=== PATIENT | female | born 1940 | race Caucasian/White ===

== ENCOUNTER 2019-10-05 10:41 | Emergency (ER) | payer MEDICARE, SELFPAY ==
[2019-10-05 10:55] VITALS: BP 153/85; PULSE 80; RESP 16; TEMP 36.7; O2SAT 98
--- NOTE | 2019-10-05 11:06 | PC.NURSE ---
in br to obtain ua spec. daughter at side.
--- NOTE | 2019-10-05 11:08 | ED.GENADULT ---
HPI - General Adult General Chief complaint: Weakness Stated complaint: Weak Time Seen by Provider: 10/05/19 11:08 Source: patient and RN notes reviewed Mode of arrival: ambulatory Limitations: no limitations History of Present Illness HPI narrative: 79-year-old female presents with complaints of dizziness and weakness that has been going on for the past 30 days. Symptoms increased today. History of Dementia and falls. No treatment. Exacerbating factors consist of changing position too fast turning head from side to side too fast. Relieving factors is sitting still. Denies ear pain, ear itching, ear trauma, trauma to head, syncopal episodes, altered vision, altered speech, confusion, or seizure activity. Denies headache, numbness or tingling in extremities. Denies chest pain or dyspnea. Denies URI symptoms, fever, or chills. Tolerating p.o. intake well. Remains active. The patient reports she have not been diagnosed with COVID-19. The patient reports she is not waiting for the results of a COVID-19 lab test. The patient reports she do not have fever, chills, weakness, or fatigue. The patient reports she do not have a new or worsening cough or shortness of breath. Denies chest pain. The patient reports she do not have any rhinorrhea, congestion, sore throat, loss of taste, nausea, vomiting, abdominal pain, and diarrhea. Tolerating po intake well. Denies recent traveling. Denies concerns for COVID-19 or exposures been home with limited outdoor exposure except for essential household needs and return home. At this time, patient is not suspected of having COVID-19. Some parts of this dictation were generated by voice recognition software and may contain typographical and/or grammatical inaccuracies. Related Data Home Medications Medication Instructions Recorded Confirmed aspirin 81 mg tablet,delayed 81 mg PO DAILY 01/08/19 release lisinopril 10 1 tablet PO DAILY 01/08/19 mg-hydrochlorothiazide 12.5 mg tablet Allergies Allergy/AdvReac Type Severity Reaction Status Date / Time Penicillins Allergy Unknown Verified 03/10/17 14:58 Review of Systems Review of Systems: Narrative: CONSTITUTIONAL: Denies fever, chills, sweats. EYES: Denies visual changes, redness, discharge. ENT: Denies rhinorrhea, congestion, sore throat, otalgia. CARDIOVASCULAR: Denies chest pain, palpitations, edema. RESPIRATORY: Denies dyspnea, wheezing, cough. GASTROINTESTINAL: Denies abdominal pain, nausea, vomiting, diarrhea. GENITOURINARY: Denies dysuria, hematuria, abnormal discharge. SKIN: Denies lesions, itching, drainage. MUSCULOSKELETAL: Denies acute back pain, joint pain, or myalgia. NEUROLOGIC: Denies numbness or focal weakness. Complains of dizziness and weakness. PSYCHIATRIC: Denies anxiety or depression. All systems reviewed & are unremarkable except as noted in HPI and below. [facility], [facility] Past Medical History Medical History Acute bilateral low back pain without sciatica CAD (coronary artery disease) Chronic obstructive pulmonary disease CKD (chronic kidney disease) stage 3, GFR 30-59 ml/min COPD (chronic obstructive pulmonary disease) Dementia Depression Dyslipidemia Dysthymia HLD (hyperlipidemia) HTN (hypertension) Osteomyelitis of left foot Post menopausal problems Surgical History Surgical History History of PTCA Hx of CABG 2012 Family History Family History Grandparent Diabetes mellitus Family history of cardiovascular disease Acute myocardial infarction Father Family history of cardiovascular disease, Onset Age: 73 Patient's father is Mother Family history of coronary artery disease, Onset Age: 74 Patient's mother is Social History Social History (Reviewed 10/05/19 @ 11:26 b
[2019-10-05 11:16] LABS: Glucose Point of Care 114 (65-105)
[2019-10-05 11:25] VITALS: BP 143/72; PULSE 77
[2019-10-05 11:27] VITALS: BP 146/85; PULSE 80
[2019-10-05 11:29] VITALS: PULSE 80
[2019-10-05] MEDS: MECLIZINE HCL 25 MG TABLET PO (11:40)
--- NOTE | 2019-10-05 11:43 | ECG_ITS ---
Measurements Intervals [place] Rate: 78 P: 47 AL: 169 QRS: -10 QRSD: 104 T: -2 QT: 383 QTc: 439 Interpretive Statements SINUS RHYTHM DELAYED PRECORDIAL R/S TRANSITION INFERIOR INFARCT, AGE INDETERMINATE BORDERLINE T WAVE ABNORMALITY- ANTEROLAT/HIGH LAT LEADS ABNORMAL ECG Electronically Signed On 10-05-2019 12:23:27 CDT by Trae Stewart D.O.
[2019-10-05 11:47] VITALS: BP 143/72; BP 146/85; PULSE 77
[2019-10-05 11:48] VITALS: PULSE 82
--- NOTE | 2019-10-05 12:02 | PC.NURSE ---
dizziness improved. given fluid per pnp order.
== END 2019-10-05 12:20 | disposition home or self-care (01) ==
PROVIDERS: Emergency Provider Nurse Practitioner Family
DX: R42 Dizziness and giddiness (principal); R82.81 Pyuria; I25.2 Old myocardial infarction; Z87.891 Personal history of nicotine dependence; I25.10 Atherosclerotic heart disease of native coronary artery without angina pectoris; J44.9 Chronic obstructive pulmonary disease, unspecified; I12.9 Hypertensive chronic kidney disease with stage 1 through stage 4 chronic kidney disease, or unspecified chronic kidney disease; N18.3 Chronic kidney disease, stage 3 (moderate); F03.90 Unspecified dementia, unspecified severity, without behavioral disturbance, psychotic disturbance, mood disturbance, and anxiety; F32.9 Major depressive disorder, single episode, unspecified; E78.5 Hyperlipidemia, unspecified; Z95.1 Presence of aortocoronary bypass graft; R94.31 Abnormal electrocardiogram [ECG] [EKG]
CPT/HCPCS: 81003; 82948; 87086; 87088; 87147; 93005; 99213; A9270; G0463

== ENCOUNTER 2019-12-08 14:41 | Inpatient (IN) | payer MEDICARE, SELFPAY ==
[2019-12-08] VITALS (11 sets, daily range): BP systolic 133–159; BP diastolic 83–110; PULSE 80–115; RESP 12–20; TEMP 36.1–36.3; O2SAT 97–99; BMI 21.6
--- NOTE | ~2019-12-08 | XR_ITS ---
XR lumbar spine 2-3V 12/09/2019 16:09 Indication: Low back pain Procedure: 3 views lumbar spine Comparison: No prior studies for comparison. Findings: Disc narrowing at all lumbar levels. There is superior endplate compression fracture of L2 and to a lesser degree L1, age indeterminate. There is moderate facet hypertrophy at L4-5 and L5-S1. There is diffuse atherosclerosis of the aorta. There is dextroscoliosis. Osteopenia. Impression: 1: Age-indeterminate superior endplate compression deformities of L1 and L2. 2: Moderate-severe lumbar spondylosis. Reviewed, dictated and finalized at location A. TING NURSE Impression: 1: Age-indeterminate superior endplate compression deformities of L1 and L2. 2: Moderate-severe lumbar spondylosis.
--- NOTE | ~2019-12-08 | XR_ITS ---
XR chest 2V 12/08/2019 15:40 Indication: Dyspnea. Shortness of breath. History of CABG. Procedure: AP and lateral views of the chest Comparison: Comparison to multiple prior studies sequentially, with oldest reviewed study dated 08/24. Findings: Status post median sternotomy for CABG. Cardiomegaly. Small left pleural effusion. No focal pneumonia, edema or pneumothorax. No acute osseous abnormality. Impression: 1: Small left pleural effusion. 2: Cardiomegaly. Reviewed, dictated and finalized at location A. Impression: 1: Small left pleural effusion. 2: Cardiomegaly.
--- NOTE | 2019-12-08 15:02 | ECG_ITS ---
Measurements Intervals [place] Rate: 88 P: 42 [place]: 159 QRS: -23 QRSD: 98 T: -15 QT: 387 QTc: 468 Interpretive Statements SINUS RHYTHM VENTRICULAR PREMATURE COMPLEXES BORDERLINE R WAVE PROGRESSION, ANTERIOR LEADS INFERIOR INFARCT, AGE INDETERMINATE BORDERLINE T WAVE ABNORMALITY- ANTEROLATERAL LEADS BASELINE ARTIFACT- I, III, AVL ABNORMAL ECG Electronically Signed On 12-08-2019 18:02:48 CDT by Trae Stewart D.O.
--- NOTE | 2019-12-08 15:17 | ED.SOB ---
HPI - SOB/Dyspnea General Chief Complaint: Shortness of Breath/Dyspnea Stated Complaint: sob hx copd Time Seen by Provider: 12/08/19 15:17 History of Present Illness HPI Narrative: 79 yo female w/ h/o CAD s/p CABG, COPD, HTN presents to the ED for SOB. She was lying down to take a nap when she suddenly became very SOB. She tried sitting up, which di not help. She reports that she has had an intermittent cough recently. No CP, fever, leg swelling, sick contacts. Related Data Home Medications Medication Instructions Recorded Confirmed aspirin 81 mg tablet,delayed 81 mg PO DAILY 01/08/19 12/19/19 release Allergies Allergy/AdvReac Type Severity Reaction Status Date / Time Penicillins Allergy Unknown Unknown Verified 12/15/19 15:55 Review of Systems Review of Systems: All systems reviewed & are unremarkable except as noted in HPI and below Constitutional: Constitutional: Denies chills and Denies fever(s) Cardiovascular: Cardiovascular: Denies chest pain Respiratory: Respiratory: Reports cough and Reports dyspnea Gastrointestinal: Gastrointestinal: Denies abdominal pain, Denies nausea and Denies vomiting Neurologic: Denies dizziness and Denies weakness [facility] Past Medical History Medical History Acute bilateral low back pain without sciatica CAD (coronary artery disease) Chronic obstructive pulmonary disease CKD (chronic kidney disease) stage 3, GFR 30-59 ml/min COPD (chronic obstructive pulmonary disease) Dementia Depression Dyslipidemia Dysthymia HLD (hyperlipidemia) HTN (hypertension) Osteomyelitis of left foot Post menopausal problems Surgical History Surgical History History of PTCA History of stent insertion of renal artery left renal artery stent 2006 Hx of CABG 2012 Family History Family History Grandparent Diabetes mellitus Acute myocardial infarction Heart disease Father Heart disease Mother Coronary artery disease Social History Social History Social History: Primary care physician: Dr. Malcom Judd Code status: Full code Smoking packs per day: 2 Smoking cigarettes per day: 40.0 Years smoked: 35 Smoking pack-years: 70.00 Smoking status: Former smoker Second hand tobacco smoke exposure: No Smoking end date: 02/08/96 Alcohol intake: current Drinks per week: 10 Substance use: never Substance use type: does not use Additional living arrangements comments: She lives with her 2 daughters. She used . Additional occupation/education comments: She used to work in a detention kitchen. Gender identity (if verbalized by the patient): Female Spiritual care concerns: No Exam Const: General: no acute distress and alert Nutritional Appearance: well nourished Orientation/consciousness: patient oriented x3 HENMT: Head: normal to inspection Resp: Effort & Inspection: normal respiratory effort Auscultation: rales on the left in the lower lung hernandez Cardio: Rate: regular rate Rhythm: regular rhythm Skin: General skin exam: normal color Rashes: no rashes Neuro: General: patient oriented x3 and moves all extremities Speech: normal speech Extrem: General: no edema Course Vital Signs Vital signs: Vital Signs Temperature 36.1 C L 12/08/19 14:59 Pulse Rate 88 12/08/19 14:59 Respiratory Rate 12 12/08/19 14:59 Blood Pressure 145/110 H 12/08/19 14:59 Pulse Oximetry 98 12/08/19 14:59 Temperature 36.1 C L 12/12/19 12:00 Pulse Rate 70 12/12/19 12:00 Respiratory Rate 18 12/12/19 12:00 Blood Pressure 110/70 12/12/19 12:00 Pulse Oximetry 99 12/12/19 12:00 MDM - SOB/Dyspnea Differential Diagnosis Differential diagnosis: Likely congestive heart
[2019-12-08 15:18] LABS: Basophils Percent Auto 0.7 % (0.2-1.2); Eosinophils Absolute Auto 0.1 K/mm3 (0-0.3); Eosinophils Percent Auto 1.6 % (0-4.4); Hematocrit 43.5 % (37.0-47.0); Hemoglobin 14.2 g/dL (12.0-15.0); Immature Granulocyte Absolute 0.01 K/mm3 (0.00-0.031); Immature Granulocyte Percent A 0.2 % (0-0.5); Lymphocytes Absolute Auto 1.44 K/mm3 (0.9-3.2); Lymphocytes Percent Auto 23.4 % (18.3-44.2); Mean Corpuscular HGB Conc 32.6 g/dl (32-36); Mean Corpuscular Hemoglobin 31.3 pg (26-34); Mean Corpuscular Volume 95.8 fl (80-100); Mean Platelet Volume 9.6 fl (7.4-10.4); Monocytes Absolute Auto 0.6 K/mm3 (0.1-0.6); Monocytes Percent Auto 8.9 % (2.6-8.5); Neutrophils Percent Auto 65.2 % (45.5-73.1); Platelet Count Result 223 k/mm3 (150-375); Red Blood Count 4.54 M/mm3 (4.2-5.4); Red Cell Distribution Width 16.5 % (11.5-14.5); White Blood Count 6.2 K/mm3 (4.5-10.0)
[2019-12-08 15:27] LABS: Anion Gap 6 mmol/L (8-16); Blood Urea Nitrogen 11 mg/dL (7-17); Calcium 9.1 mg/dL (8.4-10.2); Carbon Dioxide 28 mmol/L (22-30); Chloride 106 mmol/L (98-107); Estimated CRCL calculation 30 ml/min; Estimated Glomerular Filt Rate 48; Glucose 100 mg/dL (65-105); Potassium 3.6 mmol/L (3.4-5.0); Sodium 140 mmol/L (137-145)
[2019-12-08 16:21] LABS: NT Pro B Type Natriuretic Pept 10700 PG/ML (5-100); Troponin I 0.054 ng/mL (0.000-0.034)
[2019-12-08] MEDS: FUROSEMIDE INJ 40 MG/4 ML VIAL IV PUSH (17:18)
--- NOTE | 2019-12-08 18:01 | ADMGEN ---
This patient, Michelle Porter, was admitted to IMU Room 232-01. Patient/family oriented to hospital policies and general routines including ID bracelet, bed and alarms, visiting hours, pain management, procedures, bathroom and other care routines, personal items, smoking policy, room service/diet, and visiting hours. Information on how to activate the Rapid Response Team has been discussed. Patient/Family are encouraged to report perceived risks to care and to ask questions if they do not understand what they are told or what they should do.
[2019-12-08 19:59] LABS: Troponin I 0.058 ng/mL (0.000-0.034)
--- NOTE | 2019-12-08 23:21 | PM.IMHP ---
H&P: HPI History of Present Illness Date/Time: 12/08/19 23:21 Chief complaint: sudden shortness of breath Narrative: Michelle Porter is a 79 year old female with a past medical history of renal artery stenosis, coronary artery disease status post CABG, and diastolic congestive heart failure who presented to the ER with sudden onset of shortness of breath.That the shortness of breath started when she went to lay down and take a nap but her shortness of breath did not improve when she sat up. Her shortness of breath is worse with exertion according to the ER records. The patient is currently only alert and oriented to person and place at the time my evaluation. She is a poor historian. She does not have any significant lower extremity edema at the time my evaluation. The patient denies any as chest pain, fever, palpitations, nausea, vomiting or ill contacts. Review of Systems Review of Systems: Narrative: 12 systems were reviewed with pertinent positives and negatives per HPI. Except as documented in the HPI, all other systems were reviewed and are negative. [facility] Past Medical History Medical History (Updated 12/09/19 @ 00:03 by Luz Laws DO) Acute bilateral low back pain without sciatica CAD (coronary artery disease) Chronic obstructive pulmonary disease CKD (chronic kidney disease) stage 3, GFR 30-59 ml/min COPD (chronic obstructive pulmonary disease) Dementia Depression Dyslipidemia Dysthymia HLD (hyperlipidemia) HTN (hypertension) Osteomyelitis of left foot Post menopausal problems Surgical History Surgical History (Updated 12/08/19 @ 23:23 by Luz Laws DO) History of PTCA History of stent insertion of renal artery left renal artery stent 2006 Hx of CABG 2012 Family History Family History (Updated 12/09/19 @ 05:09 by Luz Laws DO) Grandparent Diabetes mellitus Acute myocardial infarction Heart disease Father Heart disease Mother Coronary artery disease Social History Social History (Updated 12/09/19 @ 09:03 by Luz Laws DO) Social History: Primary care physician: Dr. Malcom Judd Code status: Full code Smoking packs per day: 2 Smoking cigarettes per day: 40.0 Years smoked: 35 Smoking pack-years: 70.00 Smoking status: Former smoker Second hand tobacco smoke exposure: No Smoking end date: 02/08/96 Alcohol intake: current Drinks per week: 10 Alcohol use details: She drinks about 10 glasses of wine a week according to nursing documentation the patient tells me that she drinks 2-3 glasses of wine a week. Substance use: never Substance use type: does not use Living arrangements: with family Additional living arrangements comments: She lives with her 2 daughters. She used . 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 Gender identity (if verbalized by the patient): Female Spiritual care concerns: No Meds Home Medications and Allergies Home Medications Medication Instructions Recorded Confirmed Type amlodipine 5 mg tablet 5 mg PO DAILY #90 tablet 01/08/19 12/08/19 Rx aspirin 81 mg tablet,delayed 81 mg PO DAILY 01/08/19 12/08/19 History release atorvastatin 40 mg tablet 40 mg PO DAILY #90 tablet 01/09/19 12/08/19 Rx Allergies Allergy/AdvReac Type Severity Reaction Status Date / Time Penicillins Allergy Unknown Unknown Verified 12/08/19 16:30 Vital Signs Vital Signs - 24 hr 12/08/19 14:59 12/08/19 16:14 12/08/19 16:29 Temperature 96.9 F L Pulse Rate 88 80 93 Respiratory Rate 12 14 Blood Pressure 145/110 H 139/83 Pulse Oximetry 98 99 12/08/19 16:45 12/08/19 16:46 12/08/19 17:34 Temperature Pulse Rate 94 94 88 Respiratory Rate 18 15 17 Blood Pressure 155/89 H 159/87 H Pulse Oximetry 97 98 99 12/08/19 18:05 12/08/19 18:06 12/08/19 20:00 Temperature 97.4 F L 96.9
[2019-12-08 23:43] LABS: Troponin I 0.059 ng/mL (0.000-0.034)
[2019-12-09] VITALS (14 sets, daily range): BP systolic 116–179; BP diastolic 64–91; PULSE 71–87; RESP 14–20; TEMP 36.4–36.7; O2SAT 94–98
[2019-12-09 05:27] LABS: Anion Gap 11 mmol/L (8-16); Blood Urea Nitrogen 11 mg/dL (7-17); Calcium 9.4 mg/dL (8.4-10.2); Carbon Dioxide 31 mmol/L (22-30); Chloride 102 mmol/L (98-107); Estimated CRCL calculation 28 ml/min; Estimated Glomerular Filt Rate 43; Glucose 96 mg/dL (65-105); Magnesium 1.8 mg/dL (1.6-2.3); Potassium 3.3 mmol/L (3.4-5.0); Sodium 144 mmol/L (137-145)
[2019-12-09] MEDS: FUROSEMIDE INJ 40 MG/4 ML VIAL IV PUSH ×2 (07:22→18:17)
[2019-12-09] MEDS: ASPIRIN 81 MG ENTERIC TABLET PO (08:21)
[2019-12-09] MEDS: ENOXAPARIN 40 MG/0.4 ML SYRINGE SUB-Q (08:21)
[2019-12-09] MEDS: amLODIPine BESYLATE 5 MG TABLET PO (08:21)
[2019-12-09] MEDS: ATORVASTATIN 40 MG TABLET PO (08:21)
--- NOTE | 2019-12-09 09:42 | PC.NURSE ---
Daylight Savings Time For Daylight Savings Time Ending in the Fall - Clocks are moved back. For Daylight Savings Time Beginning in the Spring - Clocks are moved ahead. For [facility], the time of change occurs at 0200 hrs. Time is taken from the television schedule coordinator. This entry on the patient's chart recognizes the change in time reflected during documentation. Example: 2 entries for vital signs may be charted for 0200 hrs.
--- NOTE | 2019-12-09 15:49 | PM.IMPN ---
Progress Note: A&P Assessment and Plan (1) CHF exacerbation: Qualifiers: Heart failure type: diastolic Qualified Code(s): I50.33 - Acute on chronic diastolic (congestive) heart failure Code(s): I50.9 - Heart failure, unspecified Status: Acute Assessment and Plan: Patient had an echocardiogram from 2017 that demonstrated grade 3-4 diastolic dysfunction. no home diuretic therapy indicating that she is usually well compensated. Repeat echocardiogram has been ordered. The patient was started on IV Lasix in the ER and has had good urine output. shortness of breath or dyspnea resolved, and she denies chest pain or chest pressure of any type. able to ambulate around her hospital room without any limitation noted. no swelling or edema to her lower extremities. No wheezing upon auscultation [place] [address], will repeat. receiving 40 mg IV Lasix q.12 hours. plan to stop IV BID dose in morning to start 20 or 40mg Lasix daily depending on her urine output & repeat BNP was admitted yesterday late afternoon and has since voided 2 L. Repeating a BNP with other labs in the morning, including a follow up Troponin. Trops mildly elevated, but stable at 0.05. orthostatic blood pressure checks ordered. PT and OT evaluation ordered. EKG yesterday showed sinus with PVCs, telemetry reviewed today shows sinus with PVCs heart rate in the 70s. Replacing potassium of 3.3 with 1 dose of oral supplementation. Checking Phos levels. Mag 1.8 patient her daughter requested a cardiology consultation, order was placed. not been to a medical or surgical instrument maker in over 10 years, since she had her open heart surgery 14 years or more ago. (2) Low back pain: Code(s): M54.5 - Low back pain Status: Acute Assessment and Plan: experiencing low back pain for some time, this was not acute but she had never had an x-ray or evaluation. Patient was able to do straight leg raise is as well as flex knee raises, no radiculopathy during examination, no pain with palpation during exam of lower back. No current sensory loss or strength loss noted. Patient is able to ambulate about the room without any assistance or use of DME. Patient stated that she had fallen in the past a couple of times, but had never been evaluated or had any imaging done. Ordered a lumbar x-ray for evaluation. Order lidocaine patches and p.r.n. Tylenol for pain control (3) NEVAEH (acute kidney injury): Code(s): N17.9 - Acute kidney failure, unspecified Status: Acute Assessment and Plan: May be chronic, only lab to compare to was July creatinine was 1.3 in July admission creatinine was 1.1 and then 1.2 today. Repeating labs in the morning will need to avoid high doses of Lasix for long periods of time. Minimize nephrotoxic medications maintain MAPs >65 keep patient hydrated monitor Subjective Date/time seen: 12/09/19 15:49 Michelle was sitting up in a chair when I went to speak with her and examine her. Her daughter was also at her bedside and we had a long discussion about CHF and low back pain. Patient was admitted due to CHF exacerbation with related chest pain and shortness of breath. Today she states that she is not experiencing any shortness of breath or dyspnea, and she denies chest pain or chest pressure of any type. She is able to ambulate around her hospital room without any limitation noted. She does not have any swelling or edema to her lower extremities. No wheezing upon auscultation [place] lungs[place] [address], will repeat. She is receiving 40 mg IV Lasix q.12 hours. She was admitted yesterday late afternoon and has since voided 2 L. Repeating a BNP with other labs in the morning, including a follow up Troponin. Trops mildly elevated, but stable at 0.05. Patient daughter stated that she had not been to a medical or surgical instrument maker in over 10 years, since she had
--- NOTE | 2019-12-09 16:02 | ECG_ITS ---
Measurements Intervals [place] Rate: 75 P: 126 [place]: 157 QRS: 201 QRSD: 109 T: 150 QT: 379 QTc: 425 Interpretive Statements SINUS RHYTHM ARM LEADS REVERSED POOR R WAVE PROGRESSION, ANTERIOR LEADS INFERIOR INFARCT, AGE INDETERMINATE BORDERLINE T WAVE ABNORMALITY- ANTEROLATERAL LEADS BASELINE ARTIFACT- I, II, V6 ABNORMAL ECG Electronically Signed On 12-10-2019 7:15:34 [employer] by Trae Stewart D.O.
[2019-12-09] MEDS: POTASSIUM CHLORIDE 20 MEQ TABLET 40 MEQ PO (16:15)
--- NOTE | 2019-12-09 18:08 | PC.NURSE ---
This patient, Michelle Porter, was transferred to [facility] on 12/09/19 at 1802. Personal belongings sent with patient. Report given to Mge IVY. Appropriate documentation sent with patient.
--- NOTE | 2019-12-10 | ECHO_ITS ---
Patient Info Name: Michelle Porter Age: 79 years : 1940 Gender: Female Ht: 63 in Wt: 121 lbs BSA: 1.56 m2 HR: 78 bpm BP: 116 / 81 mmHg Heart Rhythm: Sinus Rhythm Technical Quality: Good Exam Date: 12/10/2019 10:22 AM Exam Location: [facility] Pulmonary Exam Room: [facility] Patient Status: Outpatient Admit Date: 12/08/2019 Staff Ordering Physician: Mark Diaz MD Line Manager: Kaity Larkin RDCS Attending Provider: Lisandra Romeo NP Referring Physician: Emily ARTEAGA; Exam Type: CA echo doppler color flow Study Info Indications - CHF Complete two-dimensional, color flow and Doppler transthoracic echocardiogram is performed. Strain analysis performed. Summary 1. Complete two-dimensional, color flow and Doppler transthoracic echocardiogram is performed. 2. Strain analysis performed. 3. Left ventricular chamber dimension is moderately enlarged. 4. Left ventricular systolic function is severely reduced, estimated at 20-25%. 5. There is no increased left ventricular wall thickness. 6. The left ventricular diastolic function is grade I diastolic dysfunction. 7. Global longitudinal strain is abnormal at -9 %. 8. The inferior wall, basal inferoseptal, and mid inferoseptal are akinetic. 9. The anterior wall, anterolateral wall, anteroseptal wall, inferolateral wall, apical septum, and apical cap are hypokinetic. 10. Right ventricular systolic function is reduced. 11. Left atrial chamber dimension is severely enlarged. 12. There is moderate to severe mitral valve regurgitation. 13. There is mild tricuspid valve regurgitation. 14. There is mild pulmonic regurgitation. Left Ventricle Left ventricular chamber dimension is moderately enlarged. Left ventricular systolic function is severely reduced, estimated at 20-25%. There is no increased left ventricular wall thickness. The left ventricular diastolic function is grade I diastolic dysfunction. Global longitudinal strain is abnormal at -9 %. The inferior wall, basal inferoseptal, and mid inferoseptal are akinetic. The anterior wall, anterolateral wall, anteroseptal wall, inferolateral wall, apical septum, and apical cap are hypokinetic. Right Ventricle Right ventricular chamber dimension is normal. Right ventricular systolic function is reduced. Left Atria Left atrial chamber dimension is severely enlarged. Right Atria Right atrial chamber dimension is normal. Atrial Septum Intact interatrial septum visualized by color flow imaging. Aortic Valve The aortic valve is trileaflet. There is mild aortic valve sclerosis. There is no aortic valve stenosis. There is trace aortic valve regurgitation. There is mild aortic valve calcification. Pulmonic Valve The pulmonic valve is normal. There is no pulmonic valve stenosis. There is mild pulmonic regurgitation. Mitral Valve The mitral valve has thickened leaflets and calcified annulus. There is no mitral valve stenosis. There is moderate to severe mitral valve regurgitation. Tricuspid Valve The tricuspid valve leaflets are normal. There is no significant tricuspid valve stenosis. There is mild tricuspid valve regurgitation. No pulmonary hypertension, estimated pulmonary arterial systolic pressure is 31 mmHg. Pericardium/Pleural The pericardium appears normal. There is trivial pericardial effusion. Inferior Vena Cava Normal inferior vena cava with >50% collapse upon inspiration consistent with normal right atrial pr
[2019-12-10] MEDS: LIDOCAINE 5% PATCH 2 PATCH TRANSDERM ×2 (00:01→21:13)
[2019-12-10] MEDS: FUROSEMIDE INJ 40 MG/4 ML VIAL IV PUSH (05:35)
[2019-12-10 06:23] LABS: Anion Gap 9 mmol/L (8-16); Blood Urea Nitrogen 16 mg/dL (7-17); Calcium 9.6 mg/dL (8.4-10.2); Carbon Dioxide 32 mmol/L (22-30); Chloride 102 mmol/L (98-107); Estimated CRCL calculation 24 ml/min; Estimated Glomerular Filt Rate 36; Glucose 111 mg/dL (65-105); Magnesium 1.8 mg/dL (1.6-2.3); Phosphorus 4.1 mg/dL (2.5-4.5); Potassium 3.3 mmol/L (3.4-5.0); Sodium 143 mmol/L (137-145)
[2019-12-10 06:38] LABS: NT Pro B Type Natriuretic Pept 4230 PG/ML (5-100); Troponin I 0.053 ng/mL (0.000-0.034)
[2019-12-10 08:00] VITALS: BP 104/65; PULSE 78; RESP 16; TEMP 36.2; O2SAT 96
[2019-12-10] MEDS: amLODIPine BESYLATE 5 MG TABLET PO (08:29)
[2019-12-10] MEDS: ENOXAPARIN 40 MG/0.4 ML SYRINGE SUB-Q (08:29)
[2019-12-10] MEDS: ASPIRIN 81 MG ENTERIC TABLET PO (08:29)
[2019-12-10] MEDS: ATORVASTATIN 40 MG TABLET PO (08:29)
[2019-12-10 08:30] VITALS: PULSE 78
--- NOTE | 2019-12-10 11:17 | PM.IMPN ---
Progress Note: A&P Assessment and Plan (1) CHF exacerbation: Qualifiers: Heart failure type: diastolic Qualified Code(s): I50.33 - Acute on chronic diastolic (congestive) heart failure Code(s): I50.9 - Heart failure, unspecified Status: Acute Assessment and Plan: Patient had an echocardiogram from 2017 that demonstrated grade 3-4 diastolic dysfunction. no home diuretic therapy indicating that she is usually well compensated. Repeat echocardiogram has been ordered. The patient was started on IV Lasix in the ER and has had good urine output. shortness of breath or dyspnea resolved, and she denies chest pain or chest pressure of any type. able to ambulate around her hospital room without any limitation noted. no swelling or edema to her lower extremities. No wheezing upon auscultation of lungs[place] [address] at admission, now improved to 4230. received 40 mg IV Lasix q.12 hours for 2 days, decreased to 40mg IV daily now. output : 450ml, 750ml, and today 1300ml. Trops x 4 mildly elevated, but stable at 0.05. No chest pain/pressure/SOB/dyspnea with ambulation. orthostatic blood pressure checks ordered. PT and OT evaluation ordered. EKG yesterday showed sinus with PVCs, telemetry reviewed today shows sinus with PVCs heart rate in the 70s. Replacing potassium of 3.3 with 40KCL Phos levels 4.1 Mag 1.8 patient her daughter requested a cardiology consultation, order was placed. family thought she had not been to a breakfast manager in over 10 years, since she had her open heart surgery 14 years or more agom, but I found in medical records that she was evaluated 2-4 years ago by 2 different cardiologists. (2) Low back pain: Code(s): M54.5 - Low back pain Status: Acute Assessment and Plan: experiencing low back pain for some time, this was not acute but she had never had an x-ray or evaluation. Patient was able to do straight leg raise is as well as flex knee raises, no radiculopathy during examination, no pain with palpation during exam of lower back. No current sensory loss or strength loss noted. Patient is able to ambulate about the room without any assistance or use of DME. Patient stated that she had fallen in the past a couple of times, but had never been evaluated or had any imaging done. lumbar x-ray with no acute fractures or spinal compression pain controlled with lidocaine patches and p.r.n. Tylenol for pain control (3) NEVAEH (acute kidney injury): Code(s): N17.9 - Acute kidney failure, unspecified Status: Acute Assessment and Plan: June be chronic, only lab to compare to was July creatinine was 1.3 in July admission creatinine was 1.1 and then 1.2 and 1.4 today. avoid high doses of IV lasix for prolonged periods of time. Minimize nephrotoxic medications maintain MAPs >65 keep patient hydrated monitor Subjective Date/time seen: 12/10/19 11:17 Michelle was sitting up in her recliner, watching TV when I entered. Her daughter was not visiting at this time. She said that she has not seen the Boning Room Worker yet, but is hoping to go home later today. She states that she lives in a small house next to her daughter and son-in-law's house. She said that they look in on her frequently and take good care of her. Michelle seems capable of taking care of herself, but both nighttime nurses have informed me of their concerns with her confusion overnight. The daughter is aware of her dementia and has been discussing that with the adult day care worker Alethea. Today Michelle, knew she was in a hospital but thought she was in [place], her home town. she could tell me [id number] how to brush her teeth, but she could not tell me what year was or who the president currently was. She thought it was 2015 and she thought the president was Obama. She denies any chest pain or shortness of breath today. She has been ambulating around her room a
[2019-12-10] MEDS: POTASSIUM CHLORIDE 20 MEQ TABLET 40 MEQ PO (12:07)
[2019-12-10 13:57] LABS: Add Urine Microscopic? YES; Appearance Urine Clear (Clear); Bacteria Urine Trace /hpf; Bilirubin Urine Negative (Negative); Blood Urine Negative (Negative); Color Urine Yellow (Yellow); Glucose Urine UA Negative (Negative); Ketones Urine Negative (Negative); Leukocyte Esterase Ur 2+ LEU/UL (Negative); Mucus Urine Rare /lpf; Nitrate Urine Negative (Negative); Protein Urine 2+ mg/dL (Negative); Specific Grav Ur 1.014 (1.001-1.035); Squamous Epithelial Cell Urine Many /hpf (Few); Transitional Epi Cells Urine Rare /hpf (None Seen); WBC Urine 16-20 /hpf
--- NOTE | 2019-12-10 16:36 | PM.CNCAR ---
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 (2) CHF exacerbation: Qualifiers: Heart failure type: diastolic Qualified Code(s): I50.33 - Acute on chronic diastolic (congestive) heart failure Code(s): I50.9 - Heart failure, unspecified Status: Acute Assessment and Plan: Discussed risks/benefits/alternative treatment to left heart cath and she and her daughter are in agreement for it. Notified HCG for cath tomorrow. Keep NPO after midnight. Will hold Lovenox. Start Coreg 3.125 mg BID and Lisinopril 2.5 mg daily. Stop Amlodipine. Discussed need for Life Vest to prevent sudden cardiac arrest and they are in agreement. (3) HLD (hyperlipidemia): Qualifiers: Hyperlipidemia type: mixed hyperlipidemia Qualified Code(s): E78.2 - Mixed hyperlipidemia Code(s): E78.5 - Hyperlipidemia, unspecified Status: Acute (4) COPD (chronic obstructive pulmonary disease): Code(s): J44.9 - Chronic obstructive pulmonary disease, unspecified Status: Acute (5) HTN (hypertension): Qualifiers: Hypertension type: essential hypertension Qualified Code(s): I10 - Essential (primary) hypertension Code(s): I10 - Essential (primary) hypertension Status: Acute Assessment and Plan: Stable. (6) CKD (chronic kidney disease) stage 4, GFR 15-29 ml/min: Code(s): N18.4 - Chronic kidney disease, stage 4 (severe) Status: Acute History of Present Illness History of Present Illness Consult date/time: 12/10/19 16:36 Reason for consult: CHF. 79 yr old woman who I saw one time in my office on 03/10/17 presents to hospital with sob. She has a history of CAD and CABG x 2 vessels at [facility] in 2006, hypertension, dyslipidemia, left renal artery stenting, COPD, CKD stage III-IV. Reports orthopnea and HASSAN. She is a poor historian. Her daughter then brought her in to hospital. CXR showed small left pleural effusion. Troponin was slightly elevated at .058, then .059 then .053. Cr 1.4 with CrCl 24. NTproBNP 4,230. Echo shows EF 20-25% with hypokinetic segments including anterior, inferior, septum and apex, grade I diastolic dysfunction, mod-severe MR. She received IV lasix and feels better, no longer sob. Denies chest pains. She thinks she can walk up to 1 block. Reason For Visit: sudden shortness of breath Review of Systems Review of Systems: All systems reviewed & are unremarkable except as noted in HPI and below Constitutional: Constitutional: Reports as per HPI, Denies chills and Denies fever(s) Cardiovascular: Cardiovascular: Reports as per HPI, Denies chest pain, Denies irregular heart rhythm, Denies leg edema, Denies lightheadedness and Reports dyspnea on exertion Respiratory: Respiratory: Reports as per HPI, Reports dyspnea and Reports dyspnea on exertion Gastrointestinal: Gastrointestinal: Reports as per HPI and Denies abdominal pain Genitourinary: Genitourinary: Reports as per HPI and Denies dysuria Musculoskeletal: Musculoskeletal: Reports as per HPI Neurologic: Reports as per HPI, Denies dizziness and Denies syncope [facility] Past Medical History Medical History (Updated 12/10/19 @ 16:43 by Trae Stewart DO) Acute bilateral low back pain without sciatica CAD (coronary artery disease) Chronic obstructive pulmonary disease CKD (chronic kidney disease) stage 3, GFR 30-59 ml/min COPD (chronic obstructive pulmonary disease) Dementia Depression Dyslipidemia Dysthymia HLD (hyperlipidemia) HTN (hypertension) Osteomyelitis of left foot Post menopausal problems Surgical History Surgical History (Updated 12/08/19 @ 23:23 by Luz Laws DO) H
[2019-12-10 20:40] VITALS: BP 113/67; PULSE 83; RESP 12; TEMP 36.2; O2SAT 97
[2019-12-10 21:13] VITALS: PULSE 83
[2019-12-10] MEDS: carvediloL 3.125 MG TABLET PO (21:13)
[2019-12-11] VITALS (21 sets, daily range): BP systolic 99–140; BP diastolic 48–98; PULSE 66–80; RESP 14–22; TEMP 36.1–36.8; O2SAT 90–98
--- NOTE | 2019-12-11 07:31 | PM.PNCARD ---
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 In 2006 at [facility] she had 2 vessel CABG- BOURNE to LAD and SVG to OM. (2) CHF exacerbation: Qualifiers: Heart failure type: diastolic Qualified Code(s): I50.33 - Acute on chronic diastolic (congestive) heart failure Code(s): I50.9 - Heart failure, unspecified Status: Acute Assessment and Plan: Discussed risks/benefits/alternative treatment to left heart cath and she and her daughter Tayt who is the POA are in agreement for it. Notified HCG for cath today Keep NPO after midnight. Will hold Lovenox. Started Coreg 3.125 mg BID and Lisinopril 2.5 mg daily. Stopped Amlodipine. Discussed need for Life Vest to prevent sudden cardiac arrest and they are in agreement. (3) HLD (hyperlipidemia): Qualifiers: Hyperlipidemia type: mixed hyperlipidemia Qualified Code(s): E78.2 - Mixed hyperlipidemia Code(s): E78.5 - Hyperlipidemia, unspecified Status: Acute (4) COPD (chronic obstructive pulmonary disease): Code(s): J44.9 - Chronic obstructive pulmonary disease, unspecified Status: Acute (5) HTN (hypertension): Qualifiers: Hypertension type: essential hypertension Qualified Code(s): I10 - Essential (primary) hypertension Code(s): I10 - Essential (primary) hypertension Status: Acute Assessment and Plan: Stable. (6) CKD (chronic kidney disease) stage 4, GFR 15-29 ml/min: Code(s): N18.4 - Chronic kidney disease, stage 4 (severe) Status: Acute Subjective Date/time seen: 12/11/19 07:31 Denies any sob. No chest pains. Exam Const: General: cooperative, healthy appearing and comfortable Orientation/consciousness: oriented to person, oriented to place and oriented to time Resp: Auscultation: no crackles, no rales, no rhonchi, no wheezes and diminished lung sounds Cardio: Jugular venous distension: no JVD Rate: regular rate Rhythm: regular rhythm Heart sounds: no murmurs Peripheral pulses: dorsalis pedis present Neuro: General: oriented to person, oriented to place and oriented to time Extrem: Right lower extremity: no edema Left lower extremity: no edema Objective Data Vital Signs Vital Signs: Vital Signs - 24 hr 12/10/19 08:00 12/10/19 08:30 12/10/19 20:40 Temperature 97.1 F L 97.1 F L Pulse Rate 78 78 83 Respiratory Rate 16 12 Blood Pressure 104/65 113/67 Pulse Oximetry 96 97 12/10/19 21:13 12/11/19 06:11 Temperature 97.1 F L Pulse Rate 83 76 Respiratory Rate 14 Blood Pressure 118/85 Pulse Oximetry 98 Intake/Output Intake/Output: Intake & Output 12/09/19 12/09/19 12/10/19 12/11/19 00:59 23:59 23:59 23:59 Intake Total 2070 0 Output Total 1300 400 Balance 770 -400 Meds/Results Medications: Active Medications Generic Name Dose Route Start Last Admin Trade Name Freq PRN Reason Stop Dose Admin Acetaminophen 1,000 mg 12/09/19 21:05 Acetaminophen 500 Mg Tablet PO Q6H PRN Pain or Fever Aspirin 81 mg 12/09/19 09:00 12/10/19 08:29 Aspirin 81 Mg Enteric Tablet PO 81 mg DAILY STEPH Administration Atorvastatin Calcium 40 mg 12/09/19 09:00 12/10/19 08:29 Atorvastatin 40 Mg Tablet PO 40 mg DAILY STEPH Administration Carvedilol 3.125 mg 12/10/19 21:00 12/10/19 21:13 Carvedilol 3.125 Mg Tablet PO 3.125 mg Q12HR STEPH Administration Enoxaparin Sodium 40 mg 12/09/19 09:00 12/10/19 08:29 Enoxaparin 40 Mg/0.4 Ml Syringe SUB-Q 40 mg DAILY STEPH Administration Furosemide 40 mg 12/11/19 09:00 Furosemide Inj 40 Mg/4 Ml Vial IV PUSH DAILY [facility] Vancomycin HCl 750 mg in 250
[2019-12-11] MEDS: ASPIRIN 81 MG ENTERIC TABLET PO (08:16)
[2019-12-11] MEDS: lisinopriL 2.5 MG TABLET PO (08:16)
[2019-12-11] MEDS: carvediloL 3.125 MG TABLET PO ×2 (08:17→20:34)
[2019-12-11 08:50] LABS: Alanine Aminotransferase 13 U/L (4-35); Albumin Level 4.3 g/dL (3.5-5.1); Alkaline Phosphatase 92 U/L (38-126); Anion Gap 11 mmol/L (8-16); Aspartate Amino Transferase 32 U/L (14-36); Blood Urea Nitrogen 24 mg/dL (7-17); Calcium 9.7 mg/dL (8.4-10.2); Carbon Dioxide 30 mmol/L (22-30); Chloride 103 mmol/L (98-107); Estimated CRCL calculation 26 ml/min; Estimated Glomerular Filt Rate 39; Glucose 120 mg/dL (65-105); Magnesium 1.9 mg/dL (1.6-2.3); Potassium 3.9 mmol/L (3.4-5.0); Sodium 144 mmol/L (137-145)
--- NOTE | 2019-12-11 10:07 | WPDMODSED ---
Moderate Sedation Note-Pt Data Patient Data Allergies Allergy/AdvReac Type Severity Reaction Status Date / Time Penicillins Allergy Unknown Unknown Verified 12/10/19 00:06 Home Medications Medication Instructions Recorded Confirmed Type amlodipine 5 mg tablet 5 mg PO DAILY #90 tablet 01/08/19 12/08/19 Rx aspirin 81 mg tablet,delayed 81 mg PO DAILY 01/08/19 12/08/19 History release atorvastatin 40 mg tablet 40 mg PO DAILY #90 tablet 01/09/19 12/08/19 Rx Current Medications: Active Medications Acetaminophen (Acetaminophen 500 Mg Tablet) 1,000 mg PO Q6H PRN PRN Reason: Pain or Fever Aspirin (Aspirin 81 Mg Enteric Tablet) 81 mg PO DAILY [facility] Last Admin: 12/11/19 08:16 Dose: 81 mg Documented by: Atorvastatin Calcium (Atorvastatin 40 Mg Tablet) 40 mg PO DAILY [facility] Last Admin: 12/10/19 08:29 Dose: 40 mg Documented by: Carvedilol (Carvedilol 3.125 Mg Tablet) 3.125 mg PO Q12HR [facility] Last Admin: 12/11/19 08:17 Dose: 3.125 mg Documented by: Enoxaparin Sodium (Enoxaparin 40 Mg/0.4 Ml Syringe) 40 mg SUB-Q DAILY [facility] Last Admin: 12/10/19 08:29 Dose: 40 mg Documented by: Furosemide (Furosemide Inj 40 Mg/4 Ml Vial) 40 mg IV PUSH DAILY [facility] Vancomycin HCl (Vancomycin 750 Mg/D5w 250 Ml) 750 mg in 250 mls @ 250 mls/hr IVPB Q36H [facility] Last Infusion: 12/10/19 16:41 Dose: Infused Documented by: Sodium Chloride (Normal Saline Iv) 500 mls @ 100 mls/hr IV CONT .Q5H [facility] Lidocaine (Lidocaine 5% Patch) 2 patch TRANSDERM DAILY@2100 [facility] Last Admin: 12/10/19 21:13 Dose: 2 patch Documented by: Lisinopril (Lisinopril 2.5 Mg Tablet) 2.5 mg PO QAM [facility] Last Admin: 12/11/19 08:16 Dose: 2.5 mg Documented by: Potassium Chloride (Potassium Chloride 20 Meq Tablet.Er) 40 meq PO DAILY@0800 [facility] Sedation/Anesthesia: No previous sedation/anesthesia problems (including family history). [facility] Past Medical History Medical History (Updated 12/10/19 @ 16:43 by Trae Stewart DO) Acute bilateral low back pain without sciatica CAD (coronary artery disease) Chronic obstructive pulmonary disease CKD (chronic kidney disease) stage 3, GFR 30-59 ml/min COPD (chronic obstructive pulmonary disease) Dementia Depression Dyslipidemia Dysthymia HLD (hyperlipidemia) HTN (hypertension) Osteomyelitis of left foot Post menopausal problems Surgical History Surgical History (Updated 12/08/19 @ 23:23 by Luz Laws DO) History of PTCA History of stent insertion of renal artery left renal artery stent 2006 Hx of CABG 2012 Family History Family History (Updated 12/09/19 @ 05:09 by Luz Laws DO) Grandparent Diabetes mellitus Acute myocardial infarction Heart disease Father Heart disease Mother Coronary artery disease Social History Social History (Updated 12/09/19 @ 09:03 by Luz Laws DO) Social History: Primary care physician: Dr. Malcom Judd Code status: Full code Smoking packs per day: 2 Smoking cigarettes per day: 40.0 Years smoked: 35 Smoking pack-years: 70.00 Smoking status: Former smoker Second hand tobacco smoke exposure: No Smoking end date: 02/08/96 Alcohol intake: current Drinks per week: 10 Alcohol use details: She drinks about 10 glasses of wine a week according to nursing documentation the patient tells me that she drinks 2-3 glasses of wine a week. Substance use: never Substance use type: does not use Living arrangements: with family Additional living arrangements comments: She lives with her 2 daughters. She used . Occupation/Education: retired Additional occupation/education comments: She used to work in a half-way kitchen. Gender identity (if verbalized by the patient): Female Spiritual care concerns: No Mod Sed Physical Exam Physical Exam Pre Procedural Exam: Normal: Airway Hours since solid foods: 10 Hours since liquid intake: 10 Internal Medicine - PN: Obj Da Vital Signs V
--- NOTE | 2019-12-11 10:07 | WPDHPUPDATE1 ---
History and Physical Update Update Date/Time: 12/11/19 10:07 History and Physical has been reviewed, including an updated exam of the patient. There are NO changes in the patient's condition. Risks, benefits, and alternatives have been discussed and questions answered. Patient agrees to proceed with procedure.
--- NOTE | 2019-12-11 10:46 | WPDCARDPROC ---
Cardiac Cath Procedure Note Date of procedure:: 12/11/19 Performing physician:: Reese Joiner MD Procedure Procedure note:: CORONARY ANGIOGRAM AND BYPASS GRAFT ANGIOGRAPHY REPORT DATE OF PROCEDURE: 12/11/2019 INDICATION FOR PROCEDURE: Shortness of breath, CHF with reduced ejection fraction; minimal troponin elevation, known CAD, history of CABG BRIEF CLINICAL HISTORY: 79-year-old female with CAD, history of CABG x2 ( bourne to LAD, SVG to OM) on 09/27/2006 at [facility]; hypertension, renal artery stenosis, CKD, dyslipidemia. Patient was admitted to the hospital with complaints of shortness of breath. Patient is somewhat a poor historian . It is uncertain if patient had chest discomfort. Patient's EKG showed sinus rhythm, poor R-wave progression, inferior infarct -age undetermined; ST-T abnormalities. Serial troponins were minimally elevated at 0.05 and essentially flat. Echocardiogram reported severe LV systolic dysfunction, ejection fraction 20-25%. She was referred by for coronary angiogram and bypass graft angiography. Benefits and risks of the procedure were discussed with the patient in depth, and informed consent was obtained prior to the procedure. Risks of the procedure include but are not limited to vascular complications including groin hematoma, retroperitoneal bleed, vessel perforation; periprocedural UT, cardiac arrhythmias, stroke, contrast induced nephropathy, and . After discussing all the benefits, risks and alternatives, patient was willing to proceed with the procedure. PROCEDURES PERFORMED: 1. Selective left and right coronary angiogram 2. Selective bypass graft angiography 3. Selective left subclavian angiogram 4. Moderate sedation-CPT code 34931 MODERATE SEDATION: Midazolam 1 mg; fentanyl 25 mcg; Start time 1018 , Stop time 1043 ; Total [id number] time 25 minutes; Nicole Lord RN was trained observer for moderate sedation. ACCESS SITE: Right common femoral artery PROCEDURE NOTE: After obtaining informed consent, patient was brought to catheterization lab and prepped and draped in a usual sterile manner. After local anesthesia with lidocaine, right common femoral artery access was taken with micropuncture needle followed by insertion of a 5 [place] sheath. There was tortuosity in the aorta which made procedure somewhat technically challenging. Selective left and right coronary angiogram was performed using 5 [place] JL4 and JR4 catheters respectively. Orthogonal views were taken . Selective bypass graft angiography of vein graft to the OM was performed using the 5 [place] JR4 catheter. The same catheter was withdrawn, and was pointed toward the left subclavian artery. Selective left subclavian angiogram was performed. Nonselective BOURNE angiogram was performed. Left ventriculogram was not performed due to patient's renal insufficiency. Patient's surface echocardiogram performed during this hospitalization showed severe LV systolic dysfunction. Finally, the sheath was secured in place with sutures which will be taken out in the cath labholding area; manual pressure will be Used for local hemostasis. Patient tolerated procedure well without any immediate procedure related complications. FINDINGS: [place] CORONARY ARTERIES: LEFT MAIN CORONARY: The left main coronary artery is a medium caliber vessel in the proximal and mid segment. There is calcific, severe, about 90% stenosis in the distal left main involving the ostia of both LAD and left circumflex branches. LEFT ANTERIOR DESCENDING ARTERY: The LAD is a medium caliber vessel the proximal segment. High-grade calcific stenosis seen in the ostium. There is moderate diffuse disease in the proximal segment. The vessel is occluded in the mid segment with some competitive flow with the BOURNE. The distal LAD is supplied by patent BOURNE. The diagonal branch is a small-caliber vessel LEFT CIRCUMFLEX ARTERY: The le
[2019-12-11] MEDS: ATORVASTATIN 40 MG TABLET PO (14:33)
[2019-12-11] MEDS: POTASSIUM CHLORIDE 20 MEQ TABLET.ER 40 MEQ PO (14:33)
--- NOTE | 2019-12-11 16:08 | PM.IMPN ---
Progress Note: A&P Assessment and Plan (1) CHF exacerbation: Qualifiers: Heart failure type: diastolic Qualified Code(s): I50.33 - Acute on chronic diastolic (congestive) heart failure Code(s): I50.9 - Heart failure, unspecified Status: Acute Assessment and Plan: The patient presented with dyspnea, worse with exertion and lying flat. BNP was elevated at 10,700 and CXR showed cardiomegaly and small left pleural effusion. Troponin was elevated mildly at 0.05 with a flat trend in the setting of acute CHF exacerbation and renal insufficiency and not felt consistent with acute coronary syndrome. She was treated with IV lasix with excellent urine output which was tapered. She is now on PO lasix 40mg QD. Dyspnea resolved with diuresis. Echocardiogram was repeated and demonstrated severely reduced left ventricular systolic function with EF 20-25%, moderate left ventricular chamber enlargement, grade I diastolic dysfunction, akinesis of the inferior wall, basal inferoseptal, and mid inferosptal wall and hypokinesis of the anterior wall, anterolateral wall, inferolateral wall, apical septum, and apical cap, reduced right ventricular systolic function, moderate to severe mitral valve regurgitation, mild tricuspid regurgitation, and mild pulmonic regurgitation. Dr. Stewart was consulted and recommended left heart catheterization, coreg 3.125 mg BID, and lisinopril 2.5mg QD. Amlodipine was discontinued. Life vest will be needed. She is s/p CABG x2 (bourne to LAD, SVG to OM) 09/27/2006. Cardiac catheterization demonstrated patent bypass grafts (BOURNE to LAD and SVT to OM) and proximal RCA chronic total occlusion with bridging collaterals. Optimal medical treatment has been recommended with consideration of proximal RCA RELIEF MASTER PCI if necessary based on clinical course. Appreciate cardiology input. Management per cardiology. Continue to monitor strict intake and output, daily weights, blood pressure. Patient had an echocardiogram from 2017 that demonstrated grade 3-4 diastolic dysfunction. (2) Low back pain: Code(s): M54.5 - Low back pain Status: Resolved Assessment and Plan: The patient reported chronic low back discomfort. She had a hx of falls but no recent falls. She had no radicular pain, sensory, or strength loss and is able to ambulate without difficulty. Lumbar plain films were ordered and showed age-indeterminate compression deformities and moderate to severe lumbar spondylosis with osteopenia and dextroscoliosis. She was treated conservatively with tylenol and lidocaine patches and pain has resolved. Continue supportive care. She will benefit from outpatient workup for osteoporosis including DEXA scan. Check vitamin D level. (3) NEVAEH (acute kidney injury): Code(s): N17.9 - Acute kidney failure, unspecified Status: Acute Assessment and Plan: Likely acute on chronic CKD. Cr at admission was 1.1 and BUN 11. (Baseline Cr appears to be 1.17-1.3 on review of prior labs dating back to Nov 2016). She received IV lasix given acute CHF exacerbation and Cr increased to 1.4 12/10/19. IV lasix was discontinued and PO lasix was initiated. Plan to continue to monitor renal function closely.IV fluids are contraindicated given HFrEF. She is tolerating PO intake well. Avoid nephrotoxins and renally dose medications. (4) Elevated fasting glucose: Code(s): R73.01 - Impaired fasting glucose Status: Acute Assessment and Plan: Check hemoglobin A1c. (5) CAD (coronary artery disease): Qualifiers: Associated angina: with stable angina Coronary Disease-Associated Artery/Lesion type: [place] artery [place] vs. transplanted heart: [place] heart Qualified Code(s): I25.118 - Atherosclerotic heart disease of [place] coronary artery with other forms of angina pectoris Code(s): I25.10 - Atherosclerotic heart disease of [place] coronary artery without angina pectoris Stat
[2019-12-12 04:37] VITALS: BP 109/66; PULSE 69; RESP 16; TEMP 36.4; O2SAT 96
[2019-12-12 05:52] LABS: Hematocrit 45.7 % (37.0-47.0); Hemoglobin 14.8 g/dL (12.0-15.0); Mean Corpuscular HGB Conc 32.4 g/dl (32-36); Mean Corpuscular Hemoglobin 30.5 pg (26-34); Mean Corpuscular Volume 94.2 fl (80-100); Mean Platelet Volume 9.9 fl (7.4-10.4); Platelet Count Result 220 k/mm3 (150-375); Red Blood Count 4.85 M/mm3 (4.2-5.4); Red Cell Distribution Width 15.9 % (11.5-14.5); White Blood Count 5.8 K/mm3 (4.5-10.0)
[2019-12-12 06:00] LABS: Hemoglobin A1C 5.2 % (<5.7)
[2019-12-12 06:05] LABS: Anion Gap 8 mmol/L (8-16); Blood Urea Nitrogen 25 mg/dL (7-17); Calcium 9.5 mg/dL (8.4-10.2); Carbon Dioxide 29 mmol/L (22-30); Chloride 105 mmol/L (98-107); Cholesterol 167 mg/dL (0-200); Estimated CRCL calculation 28 ml/min; Estimated Glomerular Filt Rate 43; Glucose 105 mg/dL (65-105); HDL Direct 47 mg/dL; Potassium 4.2 mmol/L (3.4-5.0); Sodium 142 mmol/L (137-145); Triglycerides 151 mg/dL (<150)
[2019-12-12 06:16] LABS: LDL Cholesterol Direct 83 mg/dL
[2019-12-12 06:37] LABS: Vitamin D 25 Hydroxy 19.1 ng/mL
--- NOTE | 2019-12-12 07:56 | PM.PNCARD ---
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 She is s/p CABG x2 (bourne to LAD, SVG to OM) 09/27/2006. Cardiac catheterization on 12/11/[address] Joiner demonstrated patent bypass grafts (BOURNE to LAD and SVG to OM) and proximal RCA chronic total occlusion with bridging collaterals. Optimal medical treatment has been recommended with consideration of proximal RCA BEATER WORKER HELPER PCI if necessary based on clinical course. She is asymptomatic from CAD and is not cause of her heart failure. Therefore, no need for PCI at this time. (2) CHF exacerbation: Qualifiers: Heart failure type: diastolic Qualified Code(s): I50.33 - Acute on chronic diastolic (congestive) heart failure Code(s): I50.9 - Heart failure, unspecified Status: Acute Assessment and Plan: Acute systolic heart failure. Echocardiogram on 12/10/19 demonstrated severely reduced left ventricular systolic function with EF 20-25%, moderate left ventricular chamber enlargement, grade I diastolic dysfunction, akinesis of the inferior wall, basal inferoseptal, and mid inferosptal wall and hypokinesis of the anterior wall, anterolateral wall, inferolateral wall, apical septum, and apical cap, reduced right ventricular systolic function, moderate to severe mitral valve regurgitation, mild tricuspid regurgitation, and mild pulmonic regurgitation. Started on Coreg and Lisinopril and on Furosemide 40 mg PO daily. Life Vest to be worn as much as possible for next 3 months to prevent sudden cardiac arrest. Then repeat echo in 3 months. If EF <35%, would recommend ICD. May D/C home from cardiology standpoint and F/U with me in 1 week. (3) HLD (hyperlipidemia): Qualifiers: Hyperlipidemia type: mixed hyperlipidemia Qualified Code(s): E78.2 - Mixed hyperlipidemia Code(s): E78.5 - Hyperlipidemia, unspecified Status: Chronic (4) COPD (chronic obstructive pulmonary disease): Code(s): J44.9 - Chronic obstructive pulmonary disease, unspecified Status: Acute (5) HTN (hypertension): Qualifiers: Hypertension type: essential hypertension Qualified Code(s): I10 - Essential (primary) hypertension Code(s): I10 - Essential (primary) hypertension Status: Acute Assessment and Plan: Stable. (6) CKD (chronic kidney disease) stage 4, GFR 15-29 ml/min: Code(s): N18.4 - Chronic kidney disease, stage 4 (severe) Status: Acute Subjective Date/time seen: 12/12/19 07:56 She is feeling fine. No chest pain or sob or right groin pain. Right groin access site without bleeding, bruising. Exam Const: General: cooperative, healthy appearing and comfortable Orientation/consciousness: oriented to person, oriented to place and oriented to time Resp: Auscultation: no crackles, no rales, no rhonchi, no wheezes and diminished lung sounds Cardio: Jugular venous distension: no JVD Rate: regular rate Rhythm: regular rhythm Heart sounds: no murmurs Peripheral pulses: dorsalis pedis present Neuro: General: oriented to person, oriented to place and oriented to time Extrem: Right lower extremity: no edema Left lower extremity: no edema Objective Data Vital Signs Vital Signs: Vital Signs - 24 hr 12/11/19 08:17 12/11/19 08:30 12/11/19 10:50 Temperature 98.0 F Pulse Rate 66 80 68 Respiratory Rate 14 Blood Pressure 127/68 121/70 Pulse Oximetry 12/11/19 11:05 12/11/19 11:10 12/11/19 11:25 Temperature Pulse Rate 73 73 70 Respiratory Rate 14 15 15 Blood Pressure 116/64 120/62 140/98 H Pulse Oximetry 93 95 92 12/11/19 11:30 12/11/19 11:35 12/11/19 11:45 Temperature Pulse Rate 70 68 66 Respirato
[2019-12-12 08:00] VITALS: BP 130/68
[2019-12-12] MEDS: ASPIRIN 81 MG ENTERIC TABLET PO (09:21)
[2019-12-12] MEDS: CHOLECALCIFEROL 1,000 UNITS TABLET 1000 UNITS PO (09:21)
[2019-12-12] MEDS: POTASSIUM CHLORIDE 20 MEQ TABLET.ER 40 MEQ PO (09:21)
[2019-12-12] MEDS: carvediloL 3.125 MG TABLET PO (09:21)
[2019-12-12] MEDS: ATORVASTATIN 40 MG TABLET PO (09:21)
[2019-12-12] MEDS: lisinopriL 2.5 MG TABLET PO (09:21)
[2019-12-12] MEDS: FUROSEMIDE 40 MG TABLET PO (09:22)
[2019-12-12 09:26] VITALS: BP 129/70; BP 132/74
[2019-12-12 12:00] VITALS: BP 110/70; PULSE 70; RESP 18; TEMP 36.1; O2SAT 99
--- NOTE | 2019-12-12 12:31 | PM.EVENT ---
Event Note Event Note Event Note: Right groin check post cardiac catheterization 12/11/2019: Right groin without swelling or bleeding. Stat seal intact. Faint ecchymosis on other side of the seal. No femoral bruit. Distal pulses intact. She does have slight tenderness to that site. Band-Aid will be applied prior to discharge. See discharge instructions for further activity restrictions.
--- NOTE | 2019-12-12 15:11 | PM.DS ---
DS: Admitting Diagnosis Admitting Diagnosis Admitting Diagnosis: CHF Exacerbation DS: Discharge Diagnosis Discharge Diagnosis (1) CHF exacerbation: Qualifiers: Heart failure type: diastolic Qualified Code(s): I50.33 - Acute on chronic diastolic (congestive) heart failure Code(s): I50.9 - Heart failure, unspecified Status: Acute Assessment and Plan: Discharge Summary (Date of service 12/12/19): Mrs. Porter is an 79 y.o. female with PMH significant for CAD s/p CABG in 2006, COPD, CKD stage III, dementia, HTN, and HLD who presented to the emergency department 12/08/19 for the evaluation of dyspnea, worse with exertion and lying flat. Initial workup in the emergency department was notable for BNP elevation of 10,700 and CXR with cardiomegaly and small left pleural effusion. Troponin was elevated mildly at 0.05 with a flat trend in the setting of acute CHF exacerbation and renal insufficiency and not felt consistent with acute coronary syndrome. She was admitted to the hospitalist service for CHF exacerbation and treated with IV lasix with excellent urine output which was tapered to PO lasix 40mg QD. Dyspnea resolved with diuresis. Echocardiogram was repeated and demonstrated severely reduced left ventricular systolic function with EF 20-25%, moderate left ventricular chamber enlargement, grade I diastolic dysfunction, akinesis of the inferior wall, basal inferoseptal, and mid inferosptal wall and hypokinesis of the anterior wall, anterolateral wall, inferolateral wall, apical septum, and apical cap, reduced right ventricular systolic function, moderate to severe mitral valve regurgitation, mild tricuspid regurgitation, and mild pulmonic regurgitation. Dr. Stewart was consulted and recommended left heart catheterization, coreg 3.125 mg BID, and lisinopril 2.5mg QD. Amlodipine was discontinued. She is s/p CABG x2 (bourne to LAD, SVG to OM) 09/27/2006. Cardiac catheterization demonstrated patent bypass grafts (BOURNE to LAD and SVT to OM) and proximal RCA chronic total occlusion with bridging collaterals. Optimal medical treatment has been recommended with consideration of proximal RCA REFORMATORY ATTENDANT PCI if necessary based on clinical course. Life vest ordered and she was tolerating this well. She will need to follow-up with cardiology in 1 week. She was doing very well on room air without dypsnea. She was evaluated by PT/OT and did very well. She was independent in her ADLs and ambulation and her daughter wanted her to return home with her. Life vest compliance was discussed. She was discharged in hemodynamically stable condition on the afternoon of 12/12/19. (2) Low back pain: Code(s): M54.5 - Low back pain Status: Resolved Assessment and Plan: The patient reported chronic low back discomfort. She had a hx of falls but no recent falls. She had no radicular pain, sensory, or strength loss and is able to ambulate without difficulty. Lumbar plain films were ordered and showed age-indeterminate compression deformities and moderate to severe lumbar spondylosis with osteopenia and dextroscoliosis. She was treated conservatively with tylenol and lidocaine patches and pain resolved. She will benefit from outpatient workup for osteoporosis including DEXA scan. Vitamin D was deficient at 19.1 and was supplemented with cholecalciferol 1,000 units PO daily. She will need to follow-up with her PCP outpatient. (3) NEVAEH (acute kidney injury): Code(s): N17.9 - Acute kidney failure, unspecified Status: Acute Assessment and Plan: Likely acute on chronic CKD. Cr at admission was 1.1 and BUN 11. (Baseline Cr appears to be 1.17-1.3 on review of prior labs dating back to Nov 2016). She received IV lasix given acute CHF exacerbation and Cr increased to 1.4 12/10/19. IV lasix was discontinued and PO lasix was initiated. Renal function was monitored closely and Cr 1.2 was and BUN 25 on the day of discharge. (4) Elevated fasting glucos
== END 2019-12-12 16:41 | disposition home or self-care (01) | DRG 286 ==
LOC: ANHED 16:56 → ANHIMU 18:05 → ANH3MED 12-09 17:54
PROVIDERS: Internal Medicine; Internal Medicine Cardiovascular Disease; Nurse Practitioner; Admitting Provider Internal Medicine; Emergency Provider Emergency Medicine; PCP Emergency Medicine; Visit Provider Physician Assistant
PROC: 4A023N7 Measurement of Cardiac Sampling and Pressure, Left Heart, Percutaneous Approach (ICD-10-PCS; principal; 2019-12-11 11:30)
DX: I13.0 Hypertensive heart and chronic kidney disease with heart failure and stage 1 through stage 4 chronic kidney disease, or unspecified chronic kidney disease (principal); I50.33 Acute on chronic diastolic (congestive) heart failure; N17.9 Acute kidney failure, unspecified; N18.4 Chronic kidney disease, stage 4 (severe); I25.82 Chronic total occlusion of coronary artery; I25.10 Atherosclerotic heart disease of native coronary artery without angina pectoris; J44.9 Chronic obstructive pulmonary disease, unspecified; E78.2 Mixed hyperlipidemia; E78.5 Hyperlipidemia, unspecified; R73.01 Impaired fasting glucose; I70.1 Atherosclerosis of renal artery; E55.9 Vitamin D deficiency, unspecified; M54.5 Low back pain; Z95.1 Presence of aortocoronary bypass graft; Z95.5 Presence of coronary angioplasty implant and graft; Z87.891 Personal history of nicotine dependence
CPT/HCPCS: 36415; 71046; 72100; 80048; 80053; 80061; 81001; 82306; 83036; 83735; 83880; 84100; 84484; 85025; 85027; 87086; 93005; 93306; 93455; 96365; 96372; 96374; 96375; 96376; 97116; 97161; 97165; 97530; 99285; A9270; C1769; C1887; C1894; G0378; J0461; J1644; J1650; J1940; J2250; J3010; J3370; J7040

== ENCOUNTER 2019-12-15 15:18 | Emergency (ER) | payer MEDICARE, SELFPAY ==
--- NOTE | ~2019-12-15 | XR_ITS ---
EXAMINATION: XR chest 2V DATE: 12/15/2019 17:03 INDICATION: Shortness of breath. TECHNIQUE: Frontal and lateral views of the chest were obtained. COMPARISON: Chest 2 views 12/08/2019, chest CT 12/26/2009 FINDINGS: There are lucencies in the lungs, consistent with emphysema. No pleural effusion or pneumot horax. Cardiomegaly is noted. Median sternotomy wires and mediastinal surgical clips are seen, likely from prior coronary artery bypass grafting. IMPRESSION: 1. Emphysema. 2. Cardiomegaly. Reviewed, dictated and finalized at location A. ENT RELATIONS LIAISON
[2019-12-15 15:51] VITALS: BP 110/61; PULSE 64; RESP 20; TEMP 36.1; O2SAT 98
--- NOTE | 2019-12-15 15:56 | ECG_ITS ---
Measurements Intervals [place] Rate: 55 P: 51 RI: 173 QRS: -19 QRSD: 97 T: 36 QT: 423 QTc: 407 Interpretive Statements SINUS BRADYCARDIA INFERIOR INFARCT, AGE INDETERMINATE BORDERLINE ST-T WAVE ABNORMALITY- ANTEROLAT/HIGH LAT LEADS BASELINE WANDER- I, III ABNORMAL ECG Electronically Signed On 12-15-2019 16:11:03 THERAPY TECH by Trae Stewart D.O.
[2019-12-15 16:11] LABS: Basophils Absolute Auto 0.1 K/mm3 (0.0-0.1); Basophils Percent Auto 1.1 % (0.2-1.2); Eosinophils Absolute Auto 0.3 K/mm3 (0-0.3); Hematocrit 47.4 % (37.0-47.0); Hemoglobin 15.5 g/dL (12.0-15.0); Immature Granulocyte Absolute 0.02 K/mm3 (0.00-0.031); Immature Granulocyte Percent A 0.3 % (0-0.5); Lymphocytes Absolute Auto 1.45 K/mm3 (0.9-3.2); Lymphocytes Percent Auto 20.8 % (18.3-44.2); Mean Corpuscular HGB Conc 32.7 g/dl (32-36); Mean Corpuscular Hemoglobin 31.1 pg (26-34); Mean Corpuscular Volume 95.2 fl (80-100); Mean Platelet Volume 10.2 fl (7.4-10.4); Monocytes Absolute Auto 0.6 K/mm3 (0.1-0.6); Neutrophils Absolute Auto 4.5 K/mm3 (1.3-6.7); Neutrophils Percent Auto 64.8 % (45.5-73.1); Platelet Count Result 257 k/mm3 (150-375); Red Blood Count 4.98 M/mm3 (4.2-5.4); Red Cell Distribution Width 15.3 % (11.5-14.5)
[2019-12-15 16:17] VITALS: O2SAT 95
[2019-12-15 16:18] VITALS: PULSE 59
[2019-12-15 16:24] LABS: Anion Gap 11 mmol/L (8-16); Blood Urea Nitrogen 28 mg/dL (7-17); Calcium 9.9 mg/dL (8.4-10.2); Carbon Dioxide 27 mmol/L (22-30); Chloride 101 mmol/L (98-107); Estimated CRCL calculation 20 ml/min; Estimated Glomerular Filt Rate 36; Glucose 97 mg/dL (65-105); Potassium 4.9 mmol/L (3.4-5.0); Sodium 139 mmol/L (137-145)
[2019-12-15 16:27] LABS: Prothrombin Time 13.7 Seconds (11.1-14.7)
[2019-12-15 16:28] LABS: Partial Thromboplastin Time 26.7 SECONDS (22.3-36.8)
[2019-12-15 16:52] LABS: NT Pro B Type Natriuretic Pept 1980 PG/ML (5-100); Troponin I 0.064 ng/mL (0.000-0.034)
[2019-12-15 17:07] VITALS: BP 108/71; PULSE 49; RESP 19; O2SAT 95
--- NOTE | 2019-12-15 18:17 | ED.SOB ---
HPI - SOB/Dyspnea General Chief Complaint: Shortness of Breath/Dyspnea Stated Complaint: SOB does have heart failure Time Seen by Provider: 12/15/19 16:11 History of Present Illness HPI Narrative: Patient is an 79-year-old female who presents ER with shortness of breath. Last approximately 15 minutes. She was lying down when it started. No chest pain/nausea/vomiting. She has had no runny nose/sore throat/cough. Patient was recently admitted to the hospital for CHF. She has been started on Lasix. She is also been placed in a LifeVest for low ejection fraction. Patient manager process is Dr. Stewart. Related Data Home Medications Medication Instructions Recorded Confirmed aspirin 81 mg tablet,delayed 81 mg PO DAILY 01/08/19 12/08/19 release Allergies Allergy/AdvReac Type Severity Reaction Status Date / Time Penicillins Allergy Unknown Unknown Verified 12/15/19 15:55 Review of Systems Review of Systems: All systems reviewed & are unremarkable except as noted in HPI and below Constitutional: Constitutional: Denies chills, Denies fever(s) and Denies weakness ENT: Denies nasal congestion and Denies sore throat Cardiovascular: Cardiovascular: Denies chest pain, Denies rapid heart rate and Denies radiating jaw, neck or arm pain Respiratory: Respiratory: Denies cough, Reports dyspnea and Denies wheezing Musculoskeletal: Musculoskeletal: Denies joint swelling and Denies muscle cramps Comments: No lower extremity swelling. [facility] Past Medical History Medical History (Updated 12/15/19 @ 18:23 by Amado Brothers MD) Acute bilateral low back pain without sciatica CAD (coronary artery disease) Chronic obstructive pulmonary disease CKD (chronic kidney disease) stage 3, GFR 30-59 ml/min COPD (chronic obstructive pulmonary disease) Dementia Depression Dyslipidemia Dysthymia HLD (hyperlipidemia) HTN (hypertension) Osteomyelitis of left foot Post menopausal problems Surgical History Surgical History (Updated 12/08/19 @ 23:23 by Luz Laws DO) History of PTCA History of stent insertion of renal artery left renal artery stent 2006 Hx of CABG 2012 Family History Family History (Updated 12/09/19 @ 05:09 by Luz Laws DO) Grandparent Diabetes mellitus Acute myocardial infarction Heart disease Father Heart disease Mother Coronary artery disease Social History Social History (Updated 12/09/19 @ 09:03 by Luz Laws DO) Social History: Primary care physician: Dr. Malcom Judd Code status: Full code Smoking packs per day: 2 Smoking cigarettes per day: 40.0 Years smoked: 35 Smoking pack-years: 70.00 Smoking status: Former smoker Second hand tobacco smoke exposure: No Smoking end date: 02/08/96 Alcohol intake: current Drinks per week: 10 Substance use: never Substance use type: does not use Additional living arrangements comments: She lives with her 2 daughters. She used . 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 Gender identity (if verbalized by the patient): Female Spiritual care concerns: No Exam Narrative: Exam Narrative: GENERAL: Well-appearing, well-nourished, and in no acute distress. HEAD: Normocephalic, atraumatic. ENT: Mucous membranes moist. CHEST: Clear to auscultation. No respiratory distress. HEART: Regular rate and rhythm. Normal peripheral pulses. ABDOMEN: Soft, nontender, nondistended. EXTREMITIES: Normal range of motion. No edema. NEURO: No focal deficits. Alert and oriented x2. PSYCH: Normal mood and affect. Course Course Emergency Course: Discussed case with patient's manager process Dr. Stewart. Feels patient is stable for discharge home. Elevated troponin is chronic. Patient's daughter present discussed signs and symptoms of heart failure exacerbation and reasons for return to the ER. Vital Signs Vital signs: Vital Signs
[2019-12-15 18:50] VITALS: BP 134/55; PULSE 54; RESP 18; O2SAT 94
== END 2019-12-15 18:52 | disposition home or self-care (01) ==
PROVIDERS: Emergency Medicine; Emergency Provider Emergency Medicine; PCP Emergency Medicine
DX: R06.00 Dyspnea, unspecified (principal); I25.10 Atherosclerotic heart disease of native coronary artery without angina pectoris; I12.9 Hypertensive chronic kidney disease with stage 1 through stage 4 chronic kidney disease, or unspecified chronic kidney disease; J43.9 Emphysema, unspecified; F03.90 Unspecified dementia, unspecified severity, without behavioral disturbance, psychotic disturbance, mood disturbance, and anxiety; E78.5 Hyperlipidemia, unspecified; Z79.82 Long term (current) use of aspirin; Z95.1 Presence of aortocoronary bypass graft; Z87.891 Personal history of nicotine dependence; I51.7 Cardiomegaly; R00.1 Bradycardia, unspecified; R94.31 Abnormal electrocardiogram [ECG] [EKG]
CPT/HCPCS: 36415; 71046; 80048; 83880; 84484; 85025; 85610; 85730; 93005; 99284

== ENCOUNTER 2020-02-25 12:33 | Outpatient (CLI) | payer MEDICARE, SELFPAY ==
--- NOTE | 2020-02-25 12:58 | ECHO_ITS ---
Patient Info Name: Michelle Porter Age: 80 years : 1940 Gender: Female Ht: 61 in Wt: 134 lbs BSA: 1.63 m2 HR: 65 bpm BP: 168 / 90 mmHg Technical Quality: Good Exam Date: 02/25/2020 1:10 PM Exam Location: [facility] Patient Status: Outpatient Admit Date: 02/25/2020 Staff Ordering Physician: Trae Stewart DO Dye Tub Tender: Kaity Larkin RDCS Attending Provider: Trae Stewart DO Referring Physician: Terry PEACE; Exam Type: CA echo doppler color flow Study Info Indications I50.22 - Chronic systolic (congestive) heart failure Complete two-dimensional, color flow and Doppler transthoracic echocardiogram is performed. Summary 1. Complete two-dimensional, color flow and Doppler transthoracic echocardiogram is performed. 2. Left ventricular chamber dimension is normal. 3. Left ventricular systolic function is mildly reduced, estimated at 45-50%. 4. There is mildly increased left ventricular wall thickness. 5. The left ventricular diastolic function is grade I diastolic dysfunction. 6. E/e' 18 is elevated. 7. Global longitudinal strain is abnormal at -15.7%. 8. Left atrial chamber dimension is moderately enlarged. 9. There is mild aortic valve sclerosis. 10. The mitral valve has moderately calcified annulus. 11. There is moderate mitral valve regurgitation. 12. There is mild to moderate tricuspid valve regurgitation. 13. No pulmonary hypertension, estimated pulmonary arterial systolic pressure is 33 mmHg. Left Ventricle E/e' 18 is elevated. Global longitudinal strain is abnormal at -15.7%. Left ventricular chamber dimension is normal. Left ventricular systolic function is mildly reduced, estimated at 45-50%. There is mildly increased left ventricular wall thickness. The left ventricular diastolic function is grade I diastolic dysfunction. Right Ventricle Right ventricular chamber dimension is normal. Right ventricular systolic function is normal. Left Atria Left atrial chamber dimension is moderately enlarged. Right Atria Right atrial chamber dimension is normal. Aortic Valve The aortic valve is trileaflet. There is mild aortic valve sclerosis. There is no aortic valve stenosis. There is no aortic valve regurgitation. Pulmonic Valve There is no pulmonic regurgitation. Mitral Valve The mitral valve has moderately calcified annulus. There is no mitral valve stenosis. There is moderate mitral valve regurgitation. Tricuspid Valve There is mild to moderate tricuspid valve regurgitation. No pulmonary hypertension, estimated pulmonary arterial systolic pressure is 33 mmHg. Pericardium/Pleural There is no pericardial effusion. Inferior Vena Cava Normal inferior vena cava with >50% collapse upon inspiration consistent with normal right atrial pressure, 5 mmHg. Aorta The aortic root size at the sinus of Valsalva is normal. Left Ventricular Outflow Tract Name Value Normal LVOT 2D LVOT Diameter 2.0 cm LVOT Doppler LVOT Peak Gradient 5 mmHg LVOT Mean Gradient 2 mmHg LVOT VTI 23 cm
== END 2020-02-25 12:34 | disposition home or self-care (01) ==
LOC: ANHCARD 12:34
PROVIDERS: PCP Emergency Medicine; Visit Provider Internal Medicine Cardiovascular Disease
DX: I50.22 Chronic systolic (congestive) heart failure (principal); I35.8 Other nonrheumatic aortic valve disorders; I34.0 Nonrheumatic mitral (valve) insufficiency; I36.1 Nonrheumatic tricuspid (valve) insufficiency
CPT/HCPCS: 93306

== ENCOUNTER 2020-02-26 10:28 | Outpatient (CLI) | payer MEDICARE, SELFPAY ==
[2020-02-26 11:04] LABS: Anion Gap 6 mmol/L (8-16); Blood Urea Nitrogen 14 mg/dL (7-17); Calcium 9.5 mg/dL (8.4-10.2); Carbon Dioxide 31 mmol/L (22-30); Chloride 104 mmol/L (98-107); Estimated Glomerular Filt Rate 48; Glucose 96 mg/dL (65-105); Magnesium 1.9 mg/dL (1.6-2.3); Potassium 3.8 mmol/L (3.4-5.0); Sodium 141 mmol/L (137-145)
== END 2020-02-26 10:29 | disposition home or self-care (01) ==
PROVIDERS: PCP Emergency Medicine; Visit Provider Internal Medicine Cardiovascular Disease
DX: I50.22 Chronic systolic (congestive) heart failure (principal)
CPT/HCPCS: 36415; 80048; 83735

== ENCOUNTER 2020-03-14 12:07 | Emergency (ER) | payer MEDICARE, SELFPAY ==
--- NOTE | ~2020-03-14 | XR_ITS ---
EXAMINATION: XR ribs RT 2V DATE: 03/14/2020 13:05 INDICATION: Right chest injury and pain. TECHNIQUE: 3 views of the right ribs were obtained. COMPARISON: Chest single view at 12:23 PM FINDINGS: There is no right-sided pneumonia, pleural effusion, or pneumothorax. Median sternotomy wir es are noted. There is a gallstone in the gallbladder. IMPRESSION: 1. No rib fracture. Reviewed, dictated and finalized at location A. ILE WORKER IMPRESSION: 1. No rib fracture.
--- NOTE | ~2020-03-14 | XR_ITS ---
EXAMINATION: XR chest 1V portable EXAM DATE: 03/14/2020 12:25 INDICATION: Right breast/rib pain. TECHNIQUE: Portable AP frontal chest x-ray was obtained. Comparison is made to prior examination from 12/15/2019. FINDINGS: Sternotomy wires are present without findings to suggest sternal dehiscence. Mild hyperinfl ation. The lungs are clear. There are no pleural effusions. Cardiac silhouette is prominent but mag nified on this AP technique. There is no pneumothorax suspected. The bones are osteopenic. There are bony degenerative changes. IMPRESSION: No acute cardiopulmonary findings. Reviewed, dictated and finalized at location B. T SPRAYER
--- NOTE | 2020-03-14 12:11 | ECG_ITS ---
Measurements Intervals [place] Rate: 71 P: 32 RI: 162 QRS: -29 QRSD: 99 T: 267 QT: 391 QTc: 428 Interpretive Statements SINUS RHYTHM BORDERLINE R WAVE PROGRESSION, ANTERIOR LEADS INFERIOR INFARCT, AGE INDETERMINATE BORDERLINE ST-T WAVE ABNORMALITY- ANTEROLAT/HIGH LAT LEADS ABNORMAL ECG Electronically Signed On 03-14-2020 12:19:05 BUTTER WRAPPER by Trae Stewart D.O.
[2020-03-14 12:12] VITALS: BP 114/71; PULSE 75; RESP 16; TEMP 36.7; O2SAT 96
[2020-03-14 12:23] VITALS: PULSE 74
--- NOTE | 2020-03-14 12:53 | ED.GENADULT ---
HPI - General Adult General Chief complaint: Unspecified Stated complaint: right side pain Time Seen by Provider: 03/14/20 12:17 Source: patient Mode of arrival: ambulatory Limitations: no limitations History of Present Illness HPI narrative: Patient 80-year-old female complaining of right rib pain, 8 out of 10, dull, worse with palpation and movement, after she fell this past week. According to her daughter she is fallen approximately 4 times this month. Patient admits to having balance problems. Denies any shortness of breath. Patient denies any head, neck, back, abdomen, pelvis or any extremity pain/injury. Related Data Home Medications Medication Instructions Recorded Confirmed aspirin 81 mg tablet,delayed 81 mg PO DAILY 01/08/19 03/14/20 release Allergies Allergy/AdvReac Type Severity Reaction Status Date / Time Penicillins Allergy Unknown Unknown Verified 03/14/20 12:18 Review of Systems Review of Systems: All systems reviewed & are unremarkable except as noted in HPI and below Constitutional: Constitutional: Denies body ache(s), Denies chills, Denies excessive sweating, Denies fatigue, Denies fever(s), Denies headache(s), Denies lethargy, Denies malaise, Denies weakness and Denies weight loss Eyes: Eyes: Denies blurry vision, Denies change in vision and Denies loss of vision ENT: Denies dizziness, Denies ear discharge, Denies headache(s), Denies lip swelling, Denies epistaxis, Denies nasal congestion, Denies neck pain, Denies throat swelling and Denies tongue swelling Cardiovascular: Cardiovascular: Denies chest pain, Denies chest pain at rest, Denies chest pain with activity, Denies diaphoresis, Denies rapid heart rate, Denies edema, Denies irregular heart rhythm, Denies lightheadedness, Denies palpitations, Denies dyspnea and Denies dyspnea on exertion Respiratory: Respiratory: Denies chest congestion, Denies cough, Denies hemoptysis, Denies dyspnea and Denies dyspnea on exertion Gastrointestinal: Gastrointestinal: Denies abdominal pain, Denies melena, Denies hematochezia, Denies diarrhea, Denies nausea, Denies vomiting and Denies hematemesis Musculoskeletal: Musculoskeletal: Denies abnormal gait, Denies deformity, Denies joint swelling, Denies limited range of motion, Denies neck pain and Denies numbness Neurologic: Denies Abnormal speech present, Denies abnormal gait, Denies confusion, Denies dizziness, Denies headache(s), Denies focal weakness, Denies loss of vision, Denies numbness, Denies Other visual disturbances, Denies Sensory deficit (Neuro) and Denies weakness Psychiatric: Psychiatric: Denies confusion, Denies depression, Denies auditory hallucinations, Denies homicidal ideation and Denies suicidal ideation Endocrine: Endocrine: Denies cold intolerance, Denies excessive sweating, Denies fatigue, Denies heat intolerance and Denies palpitations Hematologic/Lymphatic: Hematologic/Lymphatic: Denies easy bleeding and Denies easy bruising Allergic/Immunologic: Allergic/Immunologic: Denies lip swelling, Denies throat swelling and Denies tongue swelling PMFSH Past Medical History Medical History Acute bilateral low back pain without sciatica CAD (coronary artery disease) Chronic obstructive pulmonary disease CKD (chronic kidney disease) stage 3, GFR 30-59 ml/min COPD (chronic obstructive pulmonary disease) Dementia Depression Dyslipidemia Dysthymia HLD (hyperlipidemia) HTN (hypertension) Osteomyelitis of left foot Post menopausal problems Surgical History Surgical History History of PTCA History of stent insertion of renal artery left renal artery stent 2006 Hx of CABG 2012 Family History Family History Grandparent Diabetes mellitus Acute myocardial infarction Heart disease Father Heart disease Mother
[2020-03-14 13:28] VITALS: BP 114/68; PULSE 73; RESP 23; O2SAT 97
[2020-03-14] MEDS: HYDROcodone/acetaminophen (*CRX) 5-325 MG TABLET 1 TAB PO (13:28)
== END 2020-03-14 14:58 | disposition home or self-care (01) ==
PROVIDERS: Emergency Provider Emergency Medicine; PCP Emergency Medicine
DX: S20.211A Contusion of right front wall of thorax, initial encounter (principal); I25.10 Atherosclerotic heart disease of native coronary artery without angina pectoris; I12.9 Hypertensive chronic kidney disease with stage 1 through stage 4 chronic kidney disease, or unspecified chronic kidney disease; N18.30 Chronic kidney disease, stage 3 unspecified; J44.9 Chronic obstructive pulmonary disease, unspecified; F03.90 Unspecified dementia, unspecified severity, without behavioral disturbance, psychotic disturbance, mood disturbance, and anxiety; E78.5 Hyperlipidemia, unspecified; Z95.1 Presence of aortocoronary bypass graft; Z95.5 Presence of coronary angioplasty implant and graft; Z79.82 Long term (current) use of aspirin; W19.XXXA Unspecified fall, initial encounter; R94.31 Abnormal electrocardiogram [ECG] [EKG]
CPT/HCPCS: 71045; 71100; 93005; 99283; A9270

== ENCOUNTER 2020-07-03 18:10 | Emergency (ER) | payer MEDICARE, SELFPAY ==
[2020-07-03 18:16] VITALS: BP 162/81; PULSE 76; RESP 20; TEMP 36.4; O2SAT 98
--- NOTE | 2020-07-03 18:31 | ED.DENTAL ---
HPI - Dental/Oral General Chief complaint: Dental/Oral Stated complaint: mouth infection Time Seen by Provider: 07/03/20 18:32 Source: patient Mode of arrival: ambulatory Limitations: no limitations History of Present Illness HPI Narrative: Michelle Suarez is an 80-year-old female with a sore at the upper frenulum of mouth that has been there for the last couple weeks. She states is not getting any better but not getting worse but it is painful and her dentures rub up against it. She states that she is going to try to take the dentures out for couple days to see if it improves with the medication we will give to her Patient is dressed but needs to be bathed; she has known memory loss so unsure about her caregiver; brought here by son-in-law Related Data Home Medications Medication Instructions Recorded Confirmed aspirin 81 mg tablet,delayed 81 mg PO DAILY 01/08/19 07/03/20 release Allergies Allergy/AdvReac Type Severity Reaction Status Date / Time Penicillins Allergy Unknown Unknown Verified 07/03/20 18:24 Review of Systems Review of Systems: Narrative: CONSTITUTIONAL: Denies fever, chills, sweats. EYES: Denies visual changes, redness, discharge. Mouth: Sore by upper denture plate in the front ENT: Denies rhinorrhea, congestion, sore throat, otalgia. CARDIOVASCULAR: Denies chest pain, palpitations, edema. RESPIRATORY: Denies dyspnea, wheezing, cough GASTROINTESTINAL: Denies abdominal pain, nausea, vomiting, diarrhea. GENITOURINARY: Denies dysuria, hematuria, abnormal discharge SKIN: Denies rash or itching. NEUROLOGIC: Denies numbness, or focal weakness. PSYCHIATRIC: Denies anxiety or depression. FORMERLY [facility] Past Medical History Medical History Acute bilateral low back pain without sciatica CAD (coronary artery disease) Chronic obstructive pulmonary disease CKD (chronic kidney disease) stage 3, GFR 30-59 ml/min COPD (chronic obstructive pulmonary disease) Dementia Depression Dyslipidemia Dysthymia HLD (hyperlipidemia) HTN (hypertension) Osteomyelitis of left foot Post menopausal problems Surgical History Surgical History History of PTCA History of stent insertion of renal artery left renal artery stent 2006 Hx of CABG 2012 Family History Family History Grandparent Diabetes mellitus Acute myocardial infarction Heart disease Father Heart disease Mother Coronary artery disease Social History Social History Social History: Primary care physician: Dr. Malcom Judd Code status: Full code Smoking packs per day: 2 Smoking cigarettes per day: 40.0 Years smoked: 35 Smoking pack-years: 70.00 Smoking status: Former smoker Second hand tobacco smoke exposure: No Smoking end date: 02/08/96 Alcohol intake: current Drinks per week: 10 Substance use: never Substance use type: does not use Additional living arrangements comments: She lives with her 2 daughters. She used . Additional occupation/education comments: She used to work in a assisted kitchen. Gender identity (if verbalized by the patient): Female Spiritual care concerns: No Comments At time of signature, I agree with nursing past medical, surgical, social and family history. There is no relevant family history pertinent to the presenting complaint. Patient is known to have high blood pressure states she is taking her medication Exam Narrative: Exam Narrative: GENERAL: This is a well-nourished, well-developed patient, in mild distress. Unkempt and poor personal hygiene HEAD: normocephalic, atraumatic. EYES: Sclera clear/white. Vision is grossly intact. EARS: External ears normal, Hearing grossly intact. NOSE: External nose normal without n
== END 2020-07-03 18:55 | disposition home or self-care (01) ==
PROVIDERS: Emergency Provider Nurse Practitioner
DX: K12.0 Recurrent oral aphthae (principal); Z87.891 Personal history of nicotine dependence; I25.10 Atherosclerotic heart disease of native coronary artery without angina pectoris; J44.9 Chronic obstructive pulmonary disease, unspecified; I12.9 Hypertensive chronic kidney disease with stage 1 through stage 4 chronic kidney disease, or unspecified chronic kidney disease; N18.30 Chronic kidney disease, stage 3 unspecified; F03.90 Unspecified dementia, unspecified severity, without behavioral disturbance, psychotic disturbance, mood disturbance, and anxiety; F32.9 Major depressive disorder, single episode, unspecified; E78.5 Hyperlipidemia, unspecified; Z95.1 Presence of aortocoronary bypass graft
CPT/HCPCS: 99213; G0463

== ENCOUNTER 2020-07-27 16:19 | Inpatient (IN) | payer MEDICARE, SELFPAY ==
[2020-07-27] VITALS (12 sets, daily range): BP systolic 85–146; BP diastolic 61–100; PULSE 50–80; RESP 16–20; TEMP 35.9–36.8; O2SAT 95–96; BMI 19.7
--- NOTE | ~2020-07-27 | XR_ITS ---
XR chest 2V DATE: 07/27/2020 20:03 INDICATION: Dyspnea. History of coronary disease, COPD, hypertension. Status post coronary bypass gra ft surgery. TECHNIQUE: AP and lateral views COMPARISON: March 14, 2020 portable AP chest FINDINGS: Status post sternotomy and coronary bypass graft surgery. Cardiomegaly. Aortic calcification, ectasia and mild tortuosity. No pulmonary infiltrate or consolidation, pleural effusion or pulmonary vascular congestion or pneumo thorax. Diffuse osteopenia. IMPRESSION: Status post coronary bypass surgery Cardiomegaly Aortic atherosclerosis No active pulmonary disease Diffuse osteopenia Reviewed, dictated and finalized at location A.
--- NOTE | 2020-07-27 16:13 | ECG_ITS ---
Measurements Intervals [place] Rate: 79 P: 56 OR: 181 QRS: -21 QRSD: 94 T: 1 QT: 392 QTc: 450 Interpretive Statements SINUS RHYTHM VENTRICULAR PREMATURE COMPLEX INFERIOR INFARCT, AGE INDETERMINATE BORDERLINE ST-T WAVE ABNORMALITY- ANTEROLAT/HIGH LAT LEADS BASELINE ARTIFACT- I, II, III, AVF ABNORMAL ECG Electronically Signed On 07-27-2020 19:28:54 CDT by Trae Stewart D.O.
[2020-07-27 16:53] LABS: Basophils Absolute Auto 0.1 K/mm3 (0.0-0.1); Basophils Percent Auto 0.8 % (0.2-1.2); Eosinophils Absolute Auto 0.3 K/mm3 (0-0.3); Eosinophils Percent Auto 3.8 % (0-4.4); Hematocrit 41.8 % (37.0-47.0); Hemoglobin 13.5 g/dL (12.0-15.0); Immature Granulocyte Absolute 0.03 K/mm3 (0.00-0.031); Immature Granulocyte Percent A 0.4 % (0-0.5); Lymphocytes Absolute Auto 1.26 K/mm3 (0.9-3.2); Lymphocytes Percent Auto 16.6 % (18.3-44.2); Mean Corpuscular HGB Conc 32.3 g/dl (32-36); Mean Corpuscular Hemoglobin 31.1 pg (26-34); Mean Corpuscular Volume 96.3 fl (80-100); Mean Platelet Volume 8.8 fl (7.4-10.4); Monocytes Absolute Auto 0.5 K/mm3 (0.1-0.6); Monocytes Percent Auto 5.9 % (2.6-8.5); Neutrophils Absolute Auto 5.5 K/mm3 (1.3-6.7); Neutrophils Percent Auto 72.5 % (45.5-73.1); Platelet Count Result 209 k/mm3 (150-375); Red Blood Count 4.34 M/mm3 (4.2-5.4); Red Cell Distribution Width 13.1 % (11.5-14.5); White Blood Count 7.6 K/mm3 (4.5-10.0)
[2020-07-27 17:03] LABS: Anion Gap 8 mmol/L (8-16); Blood Urea Nitrogen 13 mg/dL (7-17); Calcium 9.1 mg/dL (8.4-10.2); Carbon Dioxide 26 mmol/L (22-30); Chloride 106 mmol/L (98-107); Estimated CRCL calculation 21 ml/min; Estimated Glomerular Filt Rate 33; Glucose 122 mg/dL (65-105); Potassium 4.2 mmol/L (3.4-5.0); Sodium 140 mmol/L (137-145)
[2020-07-27 17:15] LABS: Troponin I < 0.012 ng/mL (0.000-0.034)
--- NOTE | 2020-07-27 18:26 | ED.WEAKNESS ---
HPI - Weakness General Chief complaint: Weakness Stated complaint: weakness/nausea Time Seen by Provider: 07/27/20 16:47 Source: patient and family Mode of arrival: EMS Limitations: clinical condition History of Present Illness HPI Narrative: 80-year-old female Here because of nausea and dizziness Most of the history is obtained from the daughter who accompanies her who is not her primary caregiver however Apparently last year she was diagnosed with cardiomyopathy noted as severe LV systolic dysfunction but I cannot find a number for an ejection fraction She was told she was a bad candidate for any kind of device or other interventions and given a LifeVest to wear which she discarded after a short amount of time Apparently she has periodic episodes now of feeling weak and dizzy which her family hears about but variable amounts of time after they occurred, 1 happened to occur today while family was present EMS responded and noted her to be bradycardic and hypotensive and they administered atropine and fluids and both those conditions are now resolved and the patient feels like she is at her baseline She denies having any chest pain He was a little short of breath, no cough, no fever Related Data Home Medications Medication Instructions Recorded Confirmed aspirin 81 mg tablet,delayed 81 mg PO DAILY 01/08/19 07/27/20 release Allergies Allergy/AdvReac Type Severity Reaction Status Date / Time Penicillins Allergy Unknown Unknown Verified 07/27/20 16:20 Review of Systems Review of Systems: All systems reviewed & are unremarkable except as noted in HPI and below ROS unobtainable: Yes unobtainable due to mental status and other (Poor historian, limited info) Constitutional: Constitutional: Reports fatigue, Denies fever(s), Denies headache(s) and Reports weakness ENT: Denies headache(s) Cardiovascular: Cardiovascular: Denies chest pain, Denies radiating jaw, neck or arm pain, Denies dyspnea and Reports slow heart rate Respiratory: Respiratory: Denies cough and Reports dyspnea Gastrointestinal: Gastrointestinal: Denies abdominal pain, Denies diarrhea, Denies nausea and Denies vomiting Genitourinary: Genitourinary: Denies urinary frequency and Denies dysuria Musculoskeletal: Musculoskeletal: Denies deformity and Denies numbness Integumentary/Breasts: Skin/Breast: Denies wounds Neurologic: Reports dizziness, Denies headache(s), Denies focal weakness and Denies numbness Psychiatric: Psychiatric: Reports no additional psychiatric complaints Endocrine: Endocrine: Reports no additional endocrine complaints Hematologic/Lymphatic: Hematologic/Lymphatic: Reports no additional hematologic/lymphatic complaints Allergic/Immunologic: Allergic/Immunologic: Reports no additional allergic/immunologic complaints FOR[facility]LY [facility] Past Medical History Medical History Acute bilateral low back pain without sciatica CAD (coronary artery disease) Chronic obstructive pulmonary disease CKD (chronic kidney disease) stage 3, GFR 30-59 ml/min COPD (chronic obstructive pulmonary disease) Dementia Depression Dyslipidemia Dysthymia HLD (hyperlipidemia) HTN (hypertension) Osteomyelitis of left foot Post menopausal problems Surgical History Surgical History History of PTCA History of stent insertion of renal artery left renal artery stent 2006 Hx of CABG 2012 Family History Family History Grandparent Diabetes mellitus Acute myocardial infarction Heart disease Father Heart disease Mother Coronary artery disease Social History Social History Social History: Primary care physician: Dr. Malcom Judd Code status: Full code Smoking packs per day: 2 Smoking cigarettes per d
--- NOTE | 2020-07-27 19:00 | PC.NURSE ---
Called Cat barrera, added on BNP 1900
[2020-07-27 19:21] LABS: NT Pro B Type Natriuretic Pept 355 pg/mL (5-100)
--- NOTE | 2020-07-27 22:00 | ADMGEN ---
This patient, Michelle Porter, was admitted to Medical Room 340-01. Patient/family oriented to hospital policies and general routines including ID bracelet, bed and alarms, visiting hours, pain management, procedures, bathroom and other care routines, personal items, smoking policy, room service/diet, and visiting hours. Information on how to activate the Rapid Response Team has been discussed. Patient/Family are encouraged to report perceived risks to care and to ask questions if they do not understand what they are told or what they should do.
[2020-07-27] MEDS: LACTATED RINGERS 1,000 ML 75 ML IV CONT (22:09)
--- NOTE | 2020-07-27 22:22 | PM.IMHP ---
H&P: HPI History of Present Illness Date/Time: 07/27/20 22:22 Chief Complaint: bradycadia, hypotension Narrative: 80-year-old female who is brought in via EMS for generalized weakness that she has been feeling all day EMS was called by her daughter. Upon arrival of the EMS he was found lying on the kitchen floor with some confusion. Per review of the record it reveals was feeling all day week and with the last 30 minutes of arrival of the EMS she felt dizzy weak and nauseated. She did not fall but instead sat down on the floor where CT had an episode of vomiting. She did not have any shortness of breath or chest pain. She does have a history of CABG which was done several years ago and atrial fibrillation. The patient was sat on the chair by the EMS and vitals were obtained with patient placed on the nuclear monitoring technician. Patient's pulse was found to be 34 beats per minute and a nuclear monitoring technician showed sinus bradycardia. Initial blood pressure reported was 56/70. A 12 lead EKG was done which showed sinus bradycardia with no other ectopic the. An IV line was secured and EMS administered 1 mg of atropine along with a normal saline bolus. After About 5 seconds her heart rate was found to be 84 an sinus rhythm with improvement in her blood pressure up to 110/70. She also felt improved with improvement in her nausea. She was then brought to the ER for evaluation. Patient has been the ER vitals and stable. She has underlying dementia and since she is not able to describe any events to me. She denies any abdominal pain nausea vomiting no chest pain no shortness of breath. He has a history of severe LV systolic dysfunction with ejection fraction down to 15% which improved to 45% on repeat evaluation. He follows up with Dr. rose. Review of Systems Review of Systems: Narrative: - CONSTITUTIONAL: Denies weight loss, fever and chills. - HEENT: Denies changes in vision and hearing - RESPIRATORY: Denies SOB and cough. - CV: Denies palpitations and CP. - GI: Denies abdominal pain, had an episode of nausea, vomiting and Denies diarrhea. - : Denies dysuria and urinary frequency. - MSK: Denies myalgia and joint pain. - SKIN: Denies rash and pruritus. - NEUROLOGICAL: Denies headache and syncope. - PSYCHIATRIC: Denies recent changes in mood. Denies anxiety and depression. All systems reviewed & are unremarkable except as noted in HPI and below Constitutional: Constitutional: Reports fatigue and Reports weakness Neurologic: Reports weakness Endocrine: Endocrine: Reports fatigue PMFSH Past Medical History Medical History Acute bilateral low back pain without sciatica CAD (coronary artery disease) Chronic obstructive pulmonary disease CKD (chronic kidney disease) stage 3, GFR 30-59 ml/min COPD (chronic obstructive pulmonary disease) Dementia Depression Dyslipidemia Dysthymia HLD (hyperlipidemia) HTN (hypertension) Osteomyelitis of left foot Post menopausal problems Surgical History Surgical History History of PTCA History of stent insertion of renal artery left renal artery stent 2006 Hx of CABG 2012 Family History Family History Grandparent Diabetes mellitus Acute myocardial infarction Heart disease Father Heart disease Mother Coronary artery disease Social History Social History (Updated 07/27/20 @ 22:19 by Tanner John RN) Social History: Primary care physician: Dr. Malcom Judd Code status: Full code Smoking packs per day: 2 Smoking cigarettes per day: 40.0 Years smoked: 35 Smoking pack-years: 70.00 Smoking status: Former smoker Second hand tobacco smoke exposure: No Alcohol intake: current Drinks per week: 10 Substance use: never Substance use type: does not use Living
--- NOTE | 2020-07-27 23:33 | PC.NURSE ---
Patient is very confused at this time. She continues to pull of her telemetry patches. RN and Nurse Tech have educated and redirected patient multiple times but as soon as staff leaves the room, she removes patches from her body. Will attempt to get readings Q4 but as of now, the patient will not stop removing telemetry patches. Will attempt to redirect patient throughout the night.
[2020-07-28] VITALS (7 sets, daily range): BP systolic 118–168; BP diastolic 46–88; PULSE 48–120; RESP 16–18; TEMP 36.2–36.9; O2SAT 94–98
[2020-07-28] MEDS: MELATONIN 3 MG TABLET PO (00:43)
[2020-07-28] MEDS: ACETAMINOPHEN 325 MG TABLET 650 MG PO ×2 (04:58→20:30)
[2020-07-28 05:46] LABS: Basophils Absolute Auto 0.1 K/mm3 (0.0-0.1); Basophils Percent Auto 0.5 % (0.2-1.2); Eosinophils Percent Auto 0.4 % (0-4.4); Hematocrit 41.4 % (37.0-47.0); Hemoglobin 13.7 g/dL (12.0-15.0); Immature Granulocyte Absolute 0.04 K/mm3 (0.00-0.031); Immature Granulocyte Percent A 0.4 % (0-0.5); Lymphocytes Absolute Auto 1.09 K/mm3 (0.9-3.2); Lymphocytes Percent Auto 11.2 % (18.3-44.2); Mean Corpuscular HGB Conc 33.1 g/dl (32-36); Mean Corpuscular Hemoglobin 31.4 pg (26-34); Mean Corpuscular Volume 94.7 fl (80-100); Monocytes Absolute Auto 0.7 K/mm3 (0.1-0.6); Monocytes Percent Auto 7.5 % (2.6-8.5); Neutrophils Absolute Auto 7.8 K/mm3 (1.3-6.7); Platelet Count Result 244 k/mm3 (150-375); Red Blood Count 4.37 M/mm3 (4.2-5.4); Red Cell Distribution Width 12.9 % (11.5-14.5); White Blood Count 9.8 K/mm3 (4.5-10.0)
--- NOTE | 2020-07-28 06:00 | ECHO_ITS ---
Patient Info Name: Michelle Porter Age: 80 years : 1940 Gender: Female Ht: 63 in Wt: 110 lbs BSA: 1.49 m2 HR: 60 bpm BP: 168 / 67 mmHg Technical Quality: Good Exam Date: 07/28/2020 10:50 AM Exam Location: [facility] Pulmonary Exam Room: 340 Patient Status: Inpatient Admit Date: 07/27/2020 Staff Ordering Physician: Estuardo Falcon MD Efficiency Analyst: Kaity Larkin RDCS Attending Provider: Sonny Quiros MD Referring Physician: Ezekiel LUTZ; Exam Type: CA echo doppler color flow Study Info Indications - cardiomyopathy Complete two-dimensional, color flow and Doppler transthoracic echocardiogram is performed. Summary 1. Complete two-dimensional, color flow and Doppler transthoracic echocardiogram is performed. 2. Left ventricular systolic function is preserved, estimated at 50-55%. 3. Left ventricular chamber dimension is normal. 4. The left ventricular diastolic function is grade I diastolic dysfunction. 5. E/e' 16 is elevated. 6. Left atrial chamber dimension is moderately enlarged. 7. There is mild aortic valve sclerosis. 8. The mitral valve has mildly calcified annulus. 9. There is mild to moderate mitral valve regurgitation. 10. There is mild tricuspid valve regurgitation. 11. No pulmonary hypertension, estimated pulmonary arterial systolic pressure is 23 mmHg. Left Ventricle E/e' 16 is elevated. Left ventricular systolic function is preserved, estimated at 50-55%. Left ventricular chamber dimension is normal. The left ventricular diastolic function is grade I diastolic dysfunction. Right Ventricle Right ventricular chamber dimension is normal. Right ventricular systolic function is normal. Left Atria Left atrial chamber dimension is moderately enlarged. Aortic Valve The aortic valve is trileaflet. There is mild aortic valve sclerosis. There is no aortic valve stenosis. There is no aortic valve regurgitation. Pulmonic Valve There is no pulmonic regurgitation. Mitral Valve The mitral valve has mildly calcified annulus. There is no mitral valve stenosis. There is mild to moderate mitral valve regurgitation. Tricuspid Valve There is mild tricuspid valve regurgitation. No pulmonary hypertension, estimated pulmonary arterial systolic pressure is 23 mmHg. Pericardium/Pleural There is no pericardial effusion. Inferior Vena Cava Normal inferior vena cava with >50% collapse upon inspiration consistent with normal right atrial pressure, 5 mmHg. Aorta The aortic root size at the sinus of Valsalva is normal. Left Ventricular Outflow Tract Name Value Normal LVOT 2D LVOT Diameter 2.0 cm LVOT Doppler LVOT Peak Gradient 4 mmHg LVOT Mean Gradient 2 mmHg LVOT VTI 24 cm LVOT VTI/AV VTI Ratio 0.7 LVOT Stroke Volume 77 ml LVOT CO 14.5 l/min LVOT CI 9.8 l/min/m2 Pulmonic Valve Na
[2020-07-28 06:03] LABS: Anion Gap 11 mmol/L (8-16); Blood Urea Nitrogen 15 mg/dL (7-17); Calcium 9.4 mg/dL (8.4-10.2); Carbon Dioxide 27 mmol/L (22-30); Chloride 104 mmol/L (98-107); Estimated CRCL calculation 26 ml/min; Estimated Glomerular Filt Rate 43; Glucose 104 mg/dL (65-105); Potassium 3.8 mmol/L (3.4-5.0); Sodium 142 mmol/L (137-145)
--- NOTE | 2020-07-28 07:54 | PM.CNCAR ---
Assessment and Plan Assessment and plan (1) Bradycardia: Code(s): R00.1 - Bradycardia, unspecified Status: Acute Assessment and Plan: Could be an episode of vasovagal causing transient bradycardia/hypotension that responded to Atropine. Monitor on telemetry for any more episodes. Given bradycardia with HR 48-50's bpm range, will hold Carvedilol. No need for pacemaker at this time, but will continue to monitor. Check echo. (2) Cardiomyopathy: Code(s): I42.9 - Cardiomyopathy, unspecified Status: Acute (3) CAD (coronary artery disease), autologous vein bypass graft: Code(s): I25.810 - Atherosclerosis of coronary artery bypass graft(s) without angina pectoris Status: Acute (4) HLD (hyperlipidemia): Qualifiers: Hyperlipidemia type: mixed hyperlipidemia Qualified Code(s): E78.2 - Mixed hyperlipidemia Code(s): E78.5 - Hyperlipidemia, unspecified Status: Chronic Assessment and Plan: On Atrovastatin 40 mg daily. (5) HTN (hypertension): Qualifiers: Hypertension type: essential hypertension Qualified Code(s): I10 - Essential (primary) hypertension Code(s): I10 - Essential (primary) hypertension Status: Acute Assessment and Plan: Stable. History of Present Illness History of Present Illness Consult date/time: 07/28/20 07:54 Bradycardia. 80 yr old woman who is my regular cardiology patient presents to ER due to bradycardia. She has a history of CAD, CABG, CKD stage IV, COPD, hypertension, dyslipidemia, LV systolic dysfunction. Reports that she was fine yesterday and does not recall how or why EMS went to her house. States she was feeling sob and weak but she only recalls being out of breath after walking down the block yesterday. She states her daughter did not come home yesterday and she became concerned, then her daughter arrived home. Her daughter, Gisselle is her POA. When EMS arrived they noted HR at 34 bpm in sinus evelyne and BP 56/30 mmHg. IV line started and she was given Atropine 1 mg IV and NS bolus and immediately her HR marialuisa to 84 bpm and BP 110/70 mmHg. Denies chest pain, dizziness, orthopnea, PND, edema, palpitations. Cardiovascular Procedures Milieu Counselor:: 12/11/[address] Joiner: Patent BOURNE to LAD and SVG to OM, prox RCA with FILLING TECHNICIAN. Echo/MUGA:: 02/15/20 Echo: EF 45-50%, mild LVH, grade I diastolic dysfunction (E/e' 18), mod LAE, mod MAC, mod MR, mild-mod TR. 12/10/19 Echo: EF 20-25%, mod LVE, akinetic inferior wall, basal inferoseptum, mid inferoseptum, hypokinetic anterolat, apical septum and apex, mod-severe MR, mild TR/PI. Electrophysiology:: 12/15/19 EKG: Sinus bradycardia, inferior infa Reason For Visit: Cardiomyopathy, bradycardia Review of Systems Review of Systems: All systems reviewed & are unremarkable except as noted in HPI and below Constitutional: Constitutional: Reports as per HPI, Denies chills, Reports fatigue and Denies fever(s) Cardiovascular: Cardiovascular: Reports as per HPI, Denies chest pain, Denies irregular heart rhythm, Denies leg edema, Denies lightheadedness and Reports dyspnea on exertion Respiratory: Respiratory: Reports as per HPI and Reports dyspnea on exertion Gastrointestinal: Gastrointestinal: Reports as per HPI and Denies abdominal pain Genitourinary: Genitourinary: Reports as per HPI and Denies dysuria Musculoskeletal: Musculoskeletal: Reports as per HPI Neurologic: Reports as per HPI, Denies dizziness and Denies syncope [facility]LY [facility] Past Medical History Medical History Acute bilateral low back pain without sciatica CAD (coronary artery disease) Chronic obstructive pulmonary disease CKD (chronic kidney disease) stage 3, GFR 30-59 ml/min COPD (chronic obstructive pulmonary disease) Dementia Depression Dyslipidemia Dysthymia HLD (hyperlipidemia) HTN (hypertension) Osteomyelitis of left foot Post menopausal problems Surgic
[2020-07-28] MEDS: ATORVASTATIN 40 MG TABLET PO (09:49)
[2020-07-28] MEDS: SERTRALINE HCL 50 MG TABLET 100 MG PO (09:49)
[2020-07-28] MEDS: ASPIRIN 81 MG ENTERIC TABLET PO (09:49)
[2020-07-28] MEDS: lisinopriL 2.5 MG TABLET PO (09:49)
--- NOTE | 2020-07-28 12:43 | PM.IMPN ---
Progress Note: A&P Assessment and Plan (1) Bradycardia: Code(s): R00.1 - Bradycardia, unspecified Status: Acute Assessment and Plan: On EMS arrival, patient's heart rate was found to be in the 30s. She received atropine. Was on Coreg. Heart rate improved. Heart rate overnight decreased to the 40-50 range but overall has remained stable. She is not wearing her telemetry. Continue to hold beta-martha. Cardiology consulted. Continue telemetry as patient allows. (2) Hypotension: Code(s): I95.9 - Hypotension, unspecified Status: Acute Assessment and Plan: Patient had hypotension in the field. Blood pressure stable here except 1 episode (85/68). Low-dose lisinopril has been added. Monitor closely. (3) NEVAEH (acute kidney injury): Code(s): N17.9 - Acute kidney failure, unspecified Status: Acute Assessment and Plan: Baseline Creatinine runs approximately 1.1-1.3 range. Creatinine was 1.5 on admission. She was started on IV fluids but this has since been stopped. Creatinine better today at 1.2. PIPE-inhibitor has been resumed so monitor closely. She remains off of her Lasix. (4) Cardiomyopathy: Code(s): I42.9 - Cardiomyopathy, unspecified Status: Acute Assessment and Plan: Chest x-ray on admission shows cardiomegaly but no evidence of pulmonary edema. Most recent echocardiogram in February shows EF 40-45% and diastolic dysfunction grade 1. She also is noted to have moderate MR. Continue medical management. Cardiology following. (5) CAD (coronary artery disease), autologous vein bypass graft: Code(s): I25.810 - Atherosclerosis of coronary artery bypass graft(s) without angina pectoris Status: Acute Assessment and Plan: Stable. Continue aspirin and Lipitor. Beta-martha on hold. (6) CKD (chronic kidney disease) stage 4, GFR 15-29 ml/min: Code(s): N18.4 - Chronic kidney disease, stage 4 (severe) Status: Acute Assessment and Plan: Baseline creatinine 1.1-1.3 range. As above. Continue to follow. (7) Hypertension, essential, benign: Code(s): I10 - Essential (primary) hypertension Status: Acute Assessment and Plan: Patient's blood pressure was reviewed on 07/28. Blood pressure noted and lisinopril added. Continue to monitor. 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 Patient is not on medications for dementia. She is on Zoloft which has been continued. (9) DVT prophylaxis: Code(s): Z29.9 - Encounter for prophylactic measures, unspecified Status: Acute Assessment and Plan: SCDs Subjective Date/time seen: 07/28/20 12:43 Interval history: 80yo female with dementia, CMP, AFib adn CKD here for nausea and dizzines and found to be HoTN and bradycardia requiring Atropine. Patietn is alert but confused. She feels well. Denies back pain (she has chronic back pain). No CP. No abd pain. No n/v. Still with dizziness. Review of Systems Review of Systems: ROS unobtainable: Yes unobtainable due to mental status Exam Narrative: Exam Narrative: AF 97.1 168/67 52 16 97% ra Gen - NARD lying semi-recumbent in bed Chest - CTA bilaterally, nml RR CV - RRR S1/S2. Tele showing no significnat dysrhythmias but patietn taking tele off frequently Abd - Soft, NT/ND, Positive BS Ext - No pedal edema Neuro - Alert but confused Psych - Nml mood and affect. patiatn pleasant and cooperative Skin - Warm and dry Objective Data Vital Signs Vital Signs: Vital Signs - 24 hr 07/27/20 16:08 07/27/20 16:45 07/27/20 17:13 Temperature 98.2 F Pulse Rate 80 74 66 Respiratory Rate 20 20 Blood Pressure 116/62 121/70 115/1
[2020-07-29] VITALS (8 sets, daily range): BP systolic 110–141; BP diastolic 52–93; PULSE 58–80; RESP 16–18; TEMP 36.1–36.8; O2SAT 97
[2020-07-29 06:16] LABS: Albumin Level 4.1 g/dL (3.5-5.1); Anion Gap 7 mmol/L (8-16); Blood Urea Nitrogen 17 mg/dL (7-17); Calcium 9.8 mg/dL (8.4-10.2); Carbon Dioxide 29 mmol/L (22-30); Chloride 104 mmol/L (98-107); Estimated CRCL calculation 26 ml/min; Estimated Glomerular Filt Rate 43; Glucose 117 mg/dL (65-105); Magnesium 1.7 mg/dL (1.6-2.3); Phosphorus 3.1 mg/dL (2.5-4.5); Sodium 140 mmol/L (137-145)
--- NOTE | 2020-07-29 07:51 | PM.PNCARD ---
Progress Note: A&P Assessment and Plan (1) Bradycardia: Code(s): R00.1 - Bradycardia, unspecified Status: Acute Assessment and Plan: Could be an episode of vasovagal causing transient bradycardia/hypotension that responded to Atropine. Monitor on telemetry for any more episodes. Given bradycardia with HR 48-50's bpm range, will hold Carvedilol. No need for pacemaker at this time, but will continue to monitor. Telemetry did not much recorded and what is recorded is normal rhythm with normal rate. Apparently she is pulling her telemetry off. Echo shows EF 50-55% which is improvement from last echo, grade I diastolic dysfunction (E/e' 16), mod LAE, mild-mod MR, mild TR. Upon discharge, would have her wear 30 day event monitor to check her HR. (2) Cardiomyopathy: Code(s): I42.9 - Cardiomyopathy, unspecified Status: Acute (3) CAD (coronary artery disease), autologous vein bypass graft: Code(s): I25.810 - Atherosclerosis of coronary artery bypass graft(s) without angina pectoris Status: Acute (4) HLD (hyperlipidemia): Qualifiers: Hyperlipidemia type: mixed hyperlipidemia Qualified Code(s): E78.2 - Mixed hyperlipidemia Code(s): E78.5 - Hyperlipidemia, unspecified Status: Chronic Assessment and Plan: On Atrovastatin 40 mg daily. (5) HTN (hypertension): Qualifiers: Hypertension type: essential hypertension Qualified Code(s): I10 - Essential (primary) hypertension Code(s): I10 - Essential (primary) hypertension Status: Acute Assessment and Plan: Stable. Off Coreg. Restart low dose Coreg 1.56 mg PO BID as she would benefit for history of cardiomyopathy and CAD. Subjective Date/time seen: 07/29/20 07:51 Denies dizziness, chest pain or sob. States that she was under a lot of stress/distress with her family the day EMS arrived at her house. Exam Const: General: cooperative, healthy appearing and comfortable Resp: Auscultation: clear to auscultation bilaterally, no crackles, no rales, no rhonchi and no wheezes Cardio: Jugular venous distension: no JVD Rate: regular rate Rhythm: regular rhythm Heart sounds: no murmurs Peripheral pulses: dorsalis pedis present GI: GI Palp: No abdominal tenderness and Yes Soft to palpation Neuro: General: oriented to person, oriented to place and oriented to time Extrem: Right lower extremity: no edema Left lower extremity: no edema Objective Data Vital Signs Vital Signs: Vital Signs - 24 hr 07/28/20 09:21 07/28/20 14:00 07/28/20 16:00 Temperature 97.7 F Pulse Rate 71 64 Respiratory Rate 18 Blood Pressure 118/46 L Pulse Oximetry 94 96 07/28/20 20:00 07/28/20 20:37 07/29/20 04:00 Temperature 98.5 F Pulse Rate 54 L 120 H 63 Respiratory Rate 16 Blood Pressure 128/88 Pulse Oximetry 98 07/29/20 05:40 Temperature 98.2 F Pulse Rate 80 Respiratory Rate 18 Blood Pressure 110/80 Pulse Oximetry 97 Intake/Output Intake/Output: Intake & Output 07/26/20 07/27/20 07/28/20 07/29/20 23:59 23:59 23:59 23:59 Intake Total 1570 100 Balance 1570 100 Meds/Results Medications: Active Medications Generic Name Dose Route Start Last Admin Trade Name Freq PRN Reason Stop Dose Admin Acetaminophen 650 mg 07/27/20 19:46 07/28/20 20:30 Acetaminophen 325 Mg Tablet PO 650 mg Q4H PRN Administration Mild Pain (1-3) or Fever Aspirin 81 mg 07/28/20 09:00 07/28/20 09:49 Aspirin 81 Mg Enteric Tablet PO 81 mg DAILY STEPH Administration Atorvastatin Calcium 40 mg 07/28/20 09:00 07/28/20 09:49 Atorvastatin 40 Mg Tablet PO 40 mg DAILY STEPH Administration Lidocaine HCl ml 07/27/20 22:44 Lidocaine Hcl 2% Visc Soln 15 Ml Udc MUCOUS MEM TID PRN pain Lisinopril 2.5 mg 07/28/20 09:00 07/28/20 09:49 Lisinopril 2.5 Mg Tablet PO 2.5 mg QAM STEPH Administration Sertraline HCl 100 mg 07/28/20 09:00 07/28
[2020-07-29] MEDS: ASPIRIN 81 MG ENTERIC TABLET PO (11:40)
[2020-07-29] MEDS: ATORVASTATIN 40 MG TABLET PO (11:41)
[2020-07-29] MEDS: lisinopriL 2.5 MG TABLET PO (11:41)
[2020-07-29] MEDS: SERTRALINE HCL 50 MG TABLET 100 MG PO (11:41)
[2020-07-29] MEDS: carvediloL 1.56 MG TABLET PO ×2 (13:25→20:19)
--- NOTE | 2020-07-29 15:06 | PM.IMPN ---
Progress Note: A&P Assessment and Plan (1) Bradycardia: Code(s): R00.1 - Bradycardia, unspecified Status: Acute Assessment and Plan: On EMS arrival, patient's heart rate was found to be in the 30s. She received atropine. Was on Coreg which was stopped. Heart rate improved. Heart rate overall has remained stable on tele. Cardiology consulted. Low dose Coreg added back. Continue telemetry as patient allows. (2) Hypotension: Code(s): I95.9 - Hypotension, unspecified Status: Acute Assessment and Plan: Patient had hypotension in the field. Blood pressure stable here except 1 episode (85/68). Tolerating low-dose lisinopril and Coreg now has been added. Monitor closely. (3) NEVAEH (acute kidney injury): Code(s): N17.9 - Acute kidney failure, unspecified Status: Acute Assessment and Plan: Baseline Creatinine runs approximately 1.1-1.3 range. Creatinine was 1.5 on admission. She was started on IV fluids but this has since been stopped. Creatinine dropped to 1.2 and has remained stable even after adding Lisinopril. Monitor closely. She remains off of her Lasix. (4) Cardiomyopathy: Code(s): I42.9 - Cardiomyopathy, unspecified Status: Acute Assessment and Plan: Chest x-ray on admission shows cardiomegaly but no evidence of pulmonary edema. Echo here shows EF 50-55% and diastolic dysfunction grade 1. She also is noted to have moderate MR. Continue medical management with ASA, Lipitor, Lisinopril and now Coreg. Lasix still on hold. Cardiology following and appreciate their input. (5) CAD (coronary artery disease), autologous vein bypass graft: Code(s): I25.810 - Atherosclerosis of coronary artery bypass graft(s) without angina pectoris Status: Acute Assessment and Plan: Stable. Continue aspirin and Lipitor. Coreg resumed at small dose. (6) CKD (chronic kidney disease) stage 4, GFR 15-29 ml/min: Code(s): N18.4 - Chronic kidney disease, stage 4 (severe) Status: Acute Assessment and Plan: Baseline creatinine 1.1-1.3 range. As above. Continue to follow. (7) Hypertension, essential, benign: Code(s): I10 - Essential (primary) hypertension Status: Acute Assessment and Plan: Patient's blood pressure was reviewed on 07/29. Blood pressure remains in good control. Continue lisinopril. Low dose Coreg added back. Continue to monitor. 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 Patient is not on medications for dementia. She is on Zoloft which has been continued. Mood stable. (9) DVT prophylaxis: Code(s): Z29.9 - Encounter for prophylactic measures, unspecified Status: Acute Assessment and Plan: SCDs Subjective Date/time seen: 07/29/20 15:06 Interval history: 80yo female with dementia, CMP, AFib adn CKD here for nausea and dizzines and found to be HoTN and bradycardia requiring Atropine. Patietn is alert but confused. Mildly agitated overnight but able to be redirected. She feels well today. SHe denies CP, SOB, nausea, vomiting. She is eating well. Coreg resumed. Patient is keeping her tele on more Review of Systems Review of Systems: ROS unobtainable: Yes unobtainable due to mental status Exam Narrative: Exam Narrative: AF 96.9 141/93 58 16 97% ra Gen - NARD lying semi-recumbent in bed Chest - CTA bilaterally, nml RR CV - RRR S1/S2. Tele showing no PVCs but no significant dysrhythmias Abd - Soft, NT/ND, Positive BS Ext - No pedal edema Neuro - Alert but confused Psych - Nml mood and affect. pleasant and cooperative Skin - Warm and dry Objective Data Vital Signs Vital Signs: Vital Signs - 24 hr
[2020-07-29] MEDS: OLANZapine 5 MG TABLET PO (23:42)
[2020-07-29] MEDS: ACETAMINOPHEN 325 MG TABLET 650 MG PO (23:44)
--- NOTE | 2020-07-30 07:38 | PM.PNCARD ---
Progress Note: A&P Assessment and Plan (1) Bradycardia: Code(s): R00.1 - Bradycardia, unspecified Status: Acute Assessment and Plan: Could be an episode of vasovagal causing transient bradycardia/hypotension that responded to Atropine. Monitor on telemetry for any more episodes. Given bradycardia with HR 48-50's bpm range, Carvedilol was held for a few days and resumed. No need for pacemaker at this time, but will continue to monitor. Telemetry did not record much and what is recorded is normal rhythm with normal rate. Apparently she is pulling her telemetry off. HR 58-80 bpm; BP 125/52-141/90 mmHg. Echo shows EF 50-55% which is improvement from last echo, grade I diastolic dysfunction (E/e' 16), mod LAE, mild-mod MR, mild TR. May d/c home from cardiology standpoint. F/U with me in 2 weeks. Upon discharge, would have her wear 30 day event monitor to check her HR. (2) Cardiomyopathy: Code(s): I42.9 - Cardiomyopathy, unspecified Status: Acute (3) CAD (coronary artery disease), autologous vein bypass graft: Code(s): I25.810 - Atherosclerosis of coronary artery bypass graft(s) without angina pectoris Status: Acute (4) HLD (hyperlipidemia): Qualifiers: Hyperlipidemia type: mixed hyperlipidemia Qualified Code(s): E78.2 - Mixed hyperlipidemia Code(s): E78.5 - Hyperlipidemia, unspecified Status: Chronic Assessment and Plan: On Atrovastatin 40 mg daily. (5) HTN (hypertension): Qualifiers: Hypertension type: essential hypertension Qualified Code(s): I10 - Essential (primary) hypertension Code(s): I10 - Essential (primary) hypertension Status: Acute Assessment and Plan: Stable. Restarted low dose Coreg 1.56 mg PO BID as she would benefit for history of cardiomyopathy and CAD and she appears to be tolerating OK. Subjective Date/time seen: 07/30/20 07:38 Denies chest pain or sob. She is confused. Exam Const: General: cooperative, healthy appearing and comfortable Resp: Auscultation: clear to auscultation bilaterally, no crackles, no rales, no rhonchi and no wheezes Cardio: Jugular venous distension: no JVD Rate: regular rate Rhythm: regular rhythm Heart sounds: no murmurs Peripheral pulses: dorsalis pedis present GI: GI Palp: No abdominal tenderness and Yes Soft to palpation Neuro: General: oriented to person, oriented to place and oriented to time Extrem: Right lower extremity: no edema Left lower extremity: no edema Objective Data Vital Signs Vital Signs: Vital Signs - 24 hr 07/29/20 12:20 07/29/20 13:25 07/29/20 13:58 Temperature 96.9 F L Pulse Rate 73 64 58 L Respiratory Rate 16 Blood Pressure 141/93 H Pulse Oximetry 97 07/29/20 16:34 07/29/20 20:16 07/29/20 20:19 Temperature 97.1 F L Pulse Rate 59 L 59 L 58 L Respiratory Rate 18 Blood Pressure 125/52 L Pulse Oximetry 97 Intake/Output Intake/Output: Intake & Output 07/27/20 07/28/20 07/29/20 07/30/20 23:59 23:59 23:59 23:59 Intake Total 1570 940 200 Balance 1570 940 200 Meds/Results Medications: Active Medications Generic Name Dose Route Start Last Admin Trade Name Freq PRN Reason Stop Dose Admin Acetaminophen 650 mg 07/27/20 19:46 07/29/20 23:44 Acetaminophen 325 Mg Tablet PO 650 mg Q4H PRN Administration Mild Pain (1-3) or Fever Aspirin 81 mg 07/28/20 09:00 07/29/20 11:40 Aspirin 81 Mg Enteric Tablet PO 81 mg DAILY STEPH Administration Atorvastatin Calcium 40 mg 07/28/20 09:00 07/29/20 11:41 Atorvastatin 40 Mg Tablet PO 40 mg DAILY STEPH Administration Carvedilol 1.56 mg 07/29/20 09:00 07/29/20 20:19 Carvedilol 1.56 Mg Tablet PO 1.56 mg Q12HR STEPH Administration Lisinopril 2.5 mg 07/28/20 09:00 07/29/20 11:41 Lisinopril 2.5 Mg Tablet PO 2.5 mg QAM STEPH Administration Sertraline HCl 100 mg 07/28/20 09:00 07/29/20 11:41 Sertraline Hcl 50
--- NOTE | 2020-07-30 10:03 | PM.DS ---
DS: Admitting Diagnosis Admitting Diagnosis Admitting Diagnosis: dizzy, bradycardia DS: Discharge Diagnosis Discharge Diagnosis (1) Bradycardia: Code(s): R00.1 - Bradycardia, unspecified Status: Acute Assessment and Plan: On EMS arrival, patient's heart rate was found to be in the 30s. She received atropine in the field. Was on Coreg which was stopped. Heart rate improved. Heart rate overall has remained stable on telemetry. Cardiology consulted. Low dose Coreg added back which she tolerated. (2) Hypotension: Code(s): I95.9 - Hypotension, unspecified Status: Acute Assessment and Plan: Patient had hypotension in the field. Blood pressure stable here except 1 episode (85/68). Low-dose lisinopril and then Coreg added. BP remained stable with the addition of these medications. Patient work with therapy. She was able tolerate therapy well. She was ambulating independently 200 ft in the halls without assistance. (3) NEVAEH (acute kidney injury): Code(s): N17.9 - Acute kidney failure, unspecified Status: Acute Assessment and Plan: Baseline Creatinine runs approximately 1.1-1.3 range. Creatinine was 1.5 on admission. She was started on IV fluids and Creatinine dropped to 1.2. IV fluids stopped. Cr has remained stable even after adding Lisinopril. She remains off of her Lasix. (4) Cardiomyopathy: Code(s): I42.9 - Cardiomyopathy, unspecified Status: Acute Assessment and Plan: Chest x-ray on admission shows cardiomegaly but no evidence of pulmonary edema. Echo here shows EF 50-55% and diastolic dysfunction grade 1. She also is noted to have moderate MR. Continue medical management with ASA, Lipitor, Lisinopril and now Coreg. Lasix still on hold. Cardiology followed and appreciate their input. (5) CAD (coronary artery disease), autologous vein bypass graft: Code(s): I25.810 - Atherosclerosis of coronary artery bypass graft(s) without angina pectoris Status: Acute Assessment and Plan: Stable. We continued aspirin and Lipitor. Coreg resumed at small dose. (6) CKD (chronic kidney disease) stage 4, GFR 15-29 ml/min: Code(s): N18.4 - Chronic kidney disease, stage 4 (severe) Status: Acute Assessment and Plan: Baseline creatinine 1.1-1.3 range. As above. (7) Hypertension, essential, benign: Code(s): I10 - Essential (primary) hypertension Status: Acute Assessment and Plan: Patient's blood pressure was monitored closely and remained in good control. As above. 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 Patient is not on medications for dementia. She is on Zoloft which was continued. Mood stable. DS: Summary Hospital Course Reason for hospitalization: 80yo female with dementia, CMP, AFib adn CKD here for nausea and dizzines and found to be HoTN and bradycardia requiring Atropine. Please see H&P for details. Hospital Course: Please see above for details hospital course. Status at Discharge Cognitive/behavioral status at discharge: Stable Time Spent with Patient Time attestation: Total time spent providing and/or coordinating discharge services: 38 minutes Time spent: Greater than 30 minutes Exam Narrative: Exam Narrative: AF 97.1 125/52 58 18 97% ra Gen - NARD lying almost flat in bed Chest -lungs clear anteriorly CV - RRR S1/S2. Tele showing PVCs but no significant dysrhythmias Abd - Soft, NT/ND, Positive BS Ext - No pedal edema Psych - Nml mood and affect. pleasant and cooperative Skin - Warm and dry Discharge Plan Discharge Attending physician on discharge: Sonny Quiros Consulting providers: Trae Stewart
[2020-07-30] MEDS: ASPIRIN 81 MG ENTERIC TABLET PO (10:52)
[2020-07-30] MEDS: ATORVASTATIN 40 MG TABLET PO (10:52)
[2020-07-30] MEDS: SERTRALINE HCL 50 MG TABLET 100 MG PO (10:52)
[2020-07-30 10:53] VITALS: PULSE 52
[2020-07-30] MEDS: lisinopriL 2.5 MG TABLET PO (10:53)
[2020-07-30] MEDS: carvediloL 1.56 MG TABLET PO (10:53)
== END 2020-07-30 11:30 | disposition home or self-care (01) | DRG 309 ==
LOC: ANHED 19:44 → ANH3MED 20:15
PROVIDERS: Emergency Medicine; Admitting Provider Internal Medicine; Emergency Provider Emergency Medicine; PCP Internal Medicine; Visit Provider Internal Medicine
DX: R00.1 Bradycardia, unspecified (principal); N18.4 Chronic kidney disease, stage 4 (severe); I25.810 Atherosclerosis of coronary artery bypass graft(s) without angina pectoris; N17.9 Acute kidney failure, unspecified; I42.9 Cardiomyopathy, unspecified; I95.9 Hypotension, unspecified; G30.0 Alzheimer's disease with early onset; F02.80 Dementia in other diseases classified elsewhere, unspecified severity, without behavioral disturbance, psychotic disturbance, mood disturbance, and anxiety; I08.1 Rheumatic disorders of both mitral and tricuspid valves; J44.9 Chronic obstructive pulmonary disease, unspecified; I12.9 Hypertensive chronic kidney disease with stage 1 through stage 4 chronic kidney disease, or unspecified chronic kidney disease; F32.9 Major depressive disorder, single episode, unspecified; E78.2 Mixed hyperlipidemia; M54.5 Low back pain; R29.6 Repeated falls; Z66 Do not resuscitate; I48.91 Unspecified atrial fibrillation; R53.1 Weakness; Z79.82 Long term (current) use of aspirin; Z79.899 Other long term (current) drug therapy; Z88.0 Allergy status to penicillin
CPT/HCPCS: 36415; 71046; 80048; 80069; 83735; 83880; 84484; 85025; 93005; 93306; 97110; 97161; 97165; 99285; A9270; J7120

== ENCOUNTER 2020-12-01 17:53 | Emergency (ER) | payer MEDICARE, MEDICAID, SELFPAY ==
--- NOTE | ~2020-12-01 | CT_ITS ---
EXAMINATION: CT brain wo con DATE: 12/01/2020 19:53 INDICATION: Status post fall. Head injury. TECHNIQUE: Computed tomography (CT) of the head was performed without intravenous contrast. The dose- length product was 605.33 mGy-cm. The mA was adjusted according to patient size. Iterative reconstruc tion technique was employed. COMPARISON: CT dated 09/05/2016 FINDINGS: Generalized atrophy. There are scattered moderate periventricular and subcortical white mat ter changes, most likely related to small vessel ischemic disease (microangiopathy). There is a chron ic left lacunar infarction. No acute intracranial hemorrhage, infarction, mass or mass effect. Mild m ucosal thickening of the paranasal sinuses. Hyperostosis frontalis interna. Mastoids are pneumatized. IMPRESSION: 1. No acute intracranial abnormality. 2: Chronic age-related findings. 3: Moderate sinusitis. Reviewed, dictated and finalized at location A.
--- NOTE | ~2020-12-01 | CT_ITS ---
EXAMINATION: CT facial & cervical spine wo DATE: 12/01/2020 19:53 INDICATION: Status post fall. Laceration to the left eyelid. Discharge from the left side. TECHNIQUE: Computed tomography (CT) of the maxillofacial region and cervical spine was performed with out intravenous contrast. The dose-length product was 117.19 mGy-cm. Automated exposure control and i terative reconstruction technique were employed. COMPARISON: None FINDINGS: MAXILLOFACIAL CT: No acute facial fracture. There is mucosal thickening of the paranasal sinuses. Orbits intact without evidence for disconjugate gaze. Mandible within normal limits. Mild symmetric degenerative changes o f the temporomandibular joints. CERVICAL SPINE CT: No acute abnormality of the cervical spine. There is mild degenerative disc disease at C5-6 and C6-7. No evidence for perched facet. Odontoid process within normal limits. There is carotid atheroscleros is. There is emphysema there is a 6 mm left apical nodule. There is cavitary change in the left upper lung. Craniovertebral junction within normal limits. There is dextrocurvature of the cervical spine. There is multilevel uncinate and facet degenerative change, more so on the left. IMPRESSION: 1. No acute abnormality of the cervical spine or maxillofacial bones. 2: Left apical nodule measuring 6 mm. Follow-up low dose CT chest in 6 months recommended to assess s tability. Reviewed, dictated and finalized at location A. IMPRESSION: 1. No acute abnormality of the cervical spine or maxillofacial bones. 2: Left apical nodule measuring 6 mm. Follow-up low dose CT chest in 6 months r ecommended to assess stability.
[2020-12-01 18:01] VITALS: BP 163/100; PULSE 74; RESP 14; TEMP 36.2; O2SAT 97
[2020-12-01 19:04] VITALS: BP 133/84; PULSE 74; RESP 19; O2SAT 98
--- NOTE | 2020-12-01 19:29 | PC.NURSE ---
Assumed care of pt, report taken from Taty IVY. Pt A&Ox2, disoriented to time. Per report, this is pts baseline. Pt denies pain at this time. Pt update on POC.
[2020-12-01] MEDS: TETANUS,DIPHTHERIA,AC PERTUSSIS ADULT (0.5 ML) BOOSTRIX IM (19:36)
--- NOTE | 2020-12-01 19:36 | ECG_ITS ---
Measurements Intervals [place] Rate: 74 P: 51 CO: 156 QRS: -22 QRSD: 104 T: -51 QT: 412 QTc: 457 Interpretive Statements SINUS RHYTHM INFERIOR INFARCT, AGE INDETERMINATE BORDERLINE T WAVE ABNORMALITY- ANTEROLATERAL LEADS BASELINE ARTIFACT- II, III, V2 ABNORMAL ECG Electronically Signed On 12-01-2020 22:59:15 CDT by Trae Stewart D.O.
--- NOTE | 2020-12-01 19:36 | ED.GENADULT ---
HPI - General Adult General Chief complaint: Fall Stated complaint: FALL Time Seen by Provider: 12/01/20 18:56 Source: patient, EMS and RN notes reviewed History of Present Illness HPI narrative: Patient is a 80 y/o female sent from [place] for a fall. Patient apparently had an unwitnessed fall. She does not recall how she fell. She has small (<1 cm) laceration lateral to left eye. She has no pain. She is not sure when she had her last Tetanus shot. Related Data Home Medications Medication Instructions Recorded Confirmed aspirin 81 mg tablet,delayed 81 mg PO DAILY 01/08/19 07/27/20 release Allergies Allergy/AdvReac Type Severity Reaction Status Date / Time Penicillins Allergy Unknown Unknown Verified 07/27/20 22:29 Review of Systems Review of Systems: ROS unobtainable: Yes unobtainable due to mental status PMFSH Past Medical History Medical History Acute bilateral low back pain without sciatica CAD (coronary artery disease) Chronic obstructive pulmonary disease CKD (chronic kidney disease) stage 3, GFR 30-59 ml/min COPD (chronic obstructive pulmonary disease) Dementia Depression Dyslipidemia Dysthymia HLD (hyperlipidemia) HTN (hypertension) Osteomyelitis of left foot Post menopausal problems Surgical History Surgical History History of PTCA History of stent insertion of renal artery left renal artery stent 2006 Hx of CABG 2012 Family History Family History Grandparent Diabetes mellitus Acute myocardial infarction Heart disease Father Heart disease Mother Coronary artery disease Social History Social History Social History: Primary care physician: Dr. Malcom Judd Code status: Full code Smoking packs per day: 2 Smoking cigarettes per day: 40.0 Years smoked: 35 Smoking pack-years: 70.00 Smoking status: Former smoker Second hand tobacco smoke exposure: No Alcohol intake: current Drinks per week: 10 Alcohol use details: She drinks about 10 glasses of wine a week according to nursing documentation the patient tells me that she drinks 2-3 glasses of wine a week. Substance use: never Substance use type: does not use Additional living arrangements comments: She lives with her 2 daughters. She used . 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 Gender identity (if verbalized by the patient): Female Spiritual care concerns: No Exam Const: General: no acute distress Orientation/consciousness: oriented to person, oriented to place and confusion HENMT: Head: normocephalic Ears: external ears normal General nose exam: Normal external nose present Eyes: General: appearance normal, both eyes and all related structures Conjunctivae: conjunctivae normal Neck: Neck: normal visual inspection and full ROM Chest: Chest palpation & inspection: normal inspection of the chest and no tenderness Resp: Effort & Inspection: normal respiratory effort Auscultation: clear to auscultation bilaterally Cardio: Rate: regular rate Rhythm: regular rhythm GI: GI Palp: No abdominal tenderness and Yes Soft to palpation Skin: General skin exam: normal color and turgor normal Trauma: laceration (<1 cm laceration near left eye, no active bleed) Neuro: General: oriented to person, oriented to place and confusion Cognition (Neuro): normal cognition Extrem: General: normal to inspection, full ROM and no pedal edema Psych: Appearance: grossly normal Mental Status: mental status grossly normal Affect: normal affect Course Vital Signs Vital signs: Vital Signs Temperature 36.2 C L 12/01/20 18:01 Pulse Rate 74 12/01/20 18:01 Respiratory Rate 14 12/01/20 18:01 Blood Pressure 163
--- NOTE | 2020-12-01 19:40 | PC.NURSE ---
Pt to CT via stretcher at this time.
[2020-12-01 20:03] LABS: Basophils Absolute Auto 0.1 K/mm3 (0.0-0.1); Basophils Percent Auto 0.5 % (0.2-1.2); Eosinophils Absolute Auto 0.2 K/mm3 (0-0.3); Hematocrit 35.5 % (37.0-47.0); Hemoglobin 11.8 g/dL (12.0-15.0); Lymphocytes Absolute Auto 1.38 K/mm3 (0.9-3.2); Lymphocytes Percent Auto 14.2 % (18.3-44.2); Mean Corpuscular HGB Conc 33.2 g/dl (32-36); Mean Corpuscular Hemoglobin 31.6 pg (26-34); Mean Corpuscular Volume 94.9 fl (80-100); Mean Platelet Volume 8.7 fl (7.4-10.4); Monocytes Absolute Auto 0.6 K/mm3 (0.1-0.6); Monocytes Percent Auto 6.5 % (2.6-8.5); Neutrophils Absolute Auto 7.4 K/mm3 (1.3-6.7); Neutrophils Percent Auto 75.8 % (45.5-73.1); Platelet Count Result 377 k/mm3 (150-375); Red Blood Count 3.74 M/mm3 (4.2-5.4); Red Cell Distribution Width 13.8 % (11.5-14.5); White Blood Count 9.7 K/mm3 (4.5-10.0)
[2020-12-01 20:15] LABS: Anion Gap 6 mmol/L (8-16); Blood Urea Nitrogen 6 mg/dL (7-17); Calcium 8.2 mg/dL (8.4-10.2); Carbon Dioxide 23 mmol/L (22-30); Chloride 110 mmol/L (98-107); Estimated CRCL calculation 43 ml/min; Estimated Glomerular Filt Rate > 60; Glucose 92 mg/dL (65-110); Potassium 3.6 mmol/L (3.4-5.0); Sodium 139 mmol/L (137-145)
[2020-12-01 20:45] VITALS: BP 142/84; PULSE 75; RESP 16; O2SAT 97
--- NOTE | 2020-12-01 22:43 | PC.NURSE ---
EMS arrived to transport pt, report given. Pt transported out of ED alert and upright on stretcher per baseline.
== END 2020-12-01 22:43 ==
PROVIDERS: Emergency Provider Emergency Medicine; PCP Emergency Medicine
DX: S01.81XA Laceration without foreign body of other part of head, initial encounter (principal); S09.90XA Unspecified injury of head, initial encounter; Z23 Encounter for immunization; I25.10 Atherosclerotic heart disease of native coronary artery without angina pectoris; J44.9 Chronic obstructive pulmonary disease, unspecified; I12.9 Hypertensive chronic kidney disease with stage 1 through stage 4 chronic kidney disease, or unspecified chronic kidney disease; N18.30 Chronic kidney disease, stage 3 unspecified; F03.90 Unspecified dementia, unspecified severity, without behavioral disturbance, psychotic disturbance, mood disturbance, and anxiety; E78.5 Hyperlipidemia, unspecified; M86.9 Osteomyelitis, unspecified; Z95.1 Presence of aortocoronary bypass graft; Z95.5 Presence of coronary angioplasty implant and graft; Z87.891 Personal history of nicotine dependence; Z79.82 Long term (current) use of aspirin; J32.9 Chronic sinusitis, unspecified; R94.31 Abnormal electrocardiogram [ECG] [EKG]; W19.XXXA Unspecified fall, initial encounter
CPT/HCPCS: 36415; 70450; 70486; 72125; 80048; 85025; 90471; 90715; 93005; 99284

== ENCOUNTER 2020-12-12 20:34 | Emergency (ER) | payer MEDICARE, SELFPAY ==
--- NOTE | ~2020-12-12 | XR_ITS ---
XR chest 1V DATE: 12/12/2020 21:35 INDICATION: Fall. Rib fracture. Hypertension, coronary bypass graft surgery, coronary disease, COPD, dementia TECHNIQUE: AP view COMPARISON: 07/27/2020 2 view chest FINDINGS: Status post sternotomy; coronary bypass graft surgery by clinical history. Heart size is normal. Is aortic calcification. No hilar or mediastinal enlargement. No pulmonary infiltrate or consolidation, pleural effusion or pulmonary vascular congestion or pneumo thorax is detected. Prominent diffuse osteopenia. IMPRESSION: Status post sternotomy/CABG Aortic atherosclerosis No active cardiopulmonary disease Osteopenia Reviewed, dictated and finalized at location A.
--- NOTE | ~2020-12-12 | XR_ITS ---
XR shoulder LT min 2V DATE: 12/12/2020 21:34 INDICATION: Fall today. Left shoulder pain TECHNIQUE: 4 views COMPARISON: None FINDINGS: Diffuse osteopenia. No fracture or dislocation of the left shoulder. No periosteal reaction or bone destruction or abnormal soft tissue calcification. IMPRESSION: Diffuse osteopenia Reviewed, dictated and finalized at location A. IMPRESSION: Diffuse osteopenia
--- NOTE | ~2020-12-12 | CT_ITS ---
EXAMINATION: CT cervical spine wo con DATE: 12/12/2020 21:24 INDICATION: Fall. Head and neck injury TECHNIQUE: Computed tomography (CT) of the cervical spine was performed without intravenous contrast. Automated exposure control and iterative reconstruction technique were employed. Exam dose: 88.53 m Gy-cm total exam DLP. COMPARISON: None FINDINGS: There is dextroscoliosis of the cervical spine. The cervical curvature is intact on lateral view. C1 and C2 are normally aligned and the odontoid process is intact. No fracture or dislocation or lock ed facet or prevertebral soft tissue swelling is detected. There is minimal anterolisthesis at C4-5. There is moderately severe degenerative disease at C5-6 and C6-7. There is minimal anterolisthesis at C7-T1. Prominent degenerative change at the apophyseal joints on the left. There is severe uncovertebral joint spurring on the right at C5-6 and prominent degenerative spurring of the right C6-7 uncovertebral joint as well. Lesser degenerative change at the remaining mid and l ower cervical uncovertebral joints. IMPRESSION: Cervical spondylosis; no fracture or dislocation or locked facet Reviewed, dictated and finalized at Location A. Reviewed, dictated and finalized at location A.
--- NOTE | ~2020-12-12 | CT_ITS ---
EXAMINATION: CT brain wo con DATE: 12/12/2020 21:24 INDICATION: Ground-level fall with head injury, laceration left supraorbital area TECHNIQUE: Computed tomography (CT) of the head was performed without intravenous contrast. The mA wa s adjusted according to patient size. Iterative reconstruction technique was employed. Exam dose: 60 5.33 mGy-cm total exam DLP. COMPARISON: 12/01/2020 CT brain FINDINGS: Left vertebral artery and bilateral carotid siphon and supraclinoid internal carotid artery calcifications. There is nonspecific diminished attenuation of the cerebral white matter, likely due to chronic small vessel ischemic changes. No intracranial mass lesion or hemorrhage or recent cerebrovascular accident is evident. No midline s hift or mass effect. There is moderately prominent central and cortical cerebral and cerebellar atrophy. No subdural or epidural hematoma is detected. Bilateral hyperostosis frontalis interna. No skull fracture or bone destruction. Minimal mucoperiosteal thickening of the sphenoid sinuses. IMPRESSION: Cerebral atherosclerosis and chronic small vessel ischemic changes of the cerebral white matter Moderately prominent central and cortical cerebral and cerebellar atrophy Reviewed, dictated and finalized at Location A. Reviewed, dictated and finalized at location A.
[2020-12-12 20:36] VITALS: BP 169/83; PULSE 67; RESP 18; TEMP 36.7; O2SAT 100
--- NOTE | 2020-12-12 20:52 | ED.FALL ---
HPI - Fall General Chief Complaint: Fall Stated Complaint: fall Time Seen by Provider: 12/12/20 20:42 Source: patient, EMS and RN notes reviewed Mode of arrival: EMS Limitations: dementia History of Present Illness HPI Narrative: This is an 80 year old female who presents from [facility] who presents for evaluation of an unwitnessed fall. PAtient states she walked outside and fell onto her left side. She denies LOC. EMS reports patient had an unwitnessed fall and she was found on the floor. It was also reported that she has had 2 falls this week. Patient does admit that she was fell 2 days ago. She has wound to left fore head and patient also complains about left shoulder pain. SHe denies neck pain, or lower extremity pain. PAtient was placed in C collar by EMS. Related Data Home Medications Medication Instructions Recorded Confirmed aspirin 81 mg tablet,delayed 81 mg PO DAILY 01/08/19 07/27/20 release Allergies Allergy/AdvReac Type Severity Reaction Status Date / Time Penicillins Allergy Unknown Unknown Verified 07/27/20 22:29 Review of Systems Review of Systems: All systems reviewed & are unremarkable except as noted in HPI and below Constitutional: Constitutional: Denies fever(s) ENT: Denies dizziness Cardiovascular: Cardiovascular: Denies chest pain Respiratory: Respiratory: Denies cough and Denies dyspnea Gastrointestinal: Gastrointestinal: Denies abdominal pain and Denies nausea Musculoskeletal: Musculoskeletal: Denies back pain Neurologic: Denies headache(s) [facility] Past Medical History Medical History Acute bilateral low back pain without sciatica CAD (coronary artery disease) Chronic obstructive pulmonary disease CKD (chronic kidney disease) stage 3, GFR 30-59 ml/min COPD (chronic obstructive pulmonary disease) Dementia Depression Dyslipidemia Dysthymia HLD (hyperlipidemia) HTN (hypertension) Osteomyelitis of left foot Post menopausal problems Surgical History Surgical History History of PTCA History of stent insertion of renal artery left renal artery stent 2006 Hx of CABG 2012 Family History Family History Grandparent Diabetes mellitus Acute myocardial infarction Heart disease Father Heart disease Mother Coronary artery disease Social History Social History Social History: Primary care physician: Dr. Malcom Judd Code status: Full code Smoking packs per day: 2 Smoking cigarettes per day: 40.0 Years smoked: 35 Smoking pack-years: 70.00 Smoking status: Former smoker Second hand tobacco smoke exposure: No Alcohol intake: current Drinks per week: 10 Alcohol use details: She drinks about 10 glasses of wine a week according to nursing documentation the patient tells me that she drinks 2-3 glasses of wine a week. Substance use: never Substance use type: does not use Additional living arrangements comments: She lives with her 2 daughters. She used . Additional occupation/education comments: She used to work in a longterm kitchen. Gender identity (if verbalized by the patient): Female Spiritual care concerns: No Exam Const: General: no acute distress and alert Orientation/consciousness: patient oriented x3 HENMT: Head: normocephalic and laceration (left temporal small 1 cm laceration, no bleeding, mild bruising) Mouth: Yes Normal oral and palatal mucosa present, Yes lip normal, Yes oropharynx normal and Yes moist mucous membranes Eyes: Pupils: Equal, round and reactive pupils present EOM: EOMs intact bilaterally Neck: Other: in collar Chest: Chest palpation & inspection: normal inspection of the chest Other: no tenderness Resp: Effort & Inspection
[2020-12-12 22:22] LABS: Basophils Percent Auto 0.8 % (0.2-1.2); Eosinophils Absolute Auto 0.2 K/mm3 (0-0.3); Eosinophils Percent Auto 3.2 % (0-4.4); Hematocrit 32.6 % (37.0-47.0); Hemoglobin 10.7 g/dL (12.0-15.0); Immature Granulocyte Absolute 0.01 K/mm3 (0.00-0.031); Immature Granulocyte Percent A 0.2 % (0-0.5); Lymphocytes Absolute Auto 0.77 K/mm3 (0.9-3.2); Lymphocytes Percent Auto 15.4 % (18.3-44.2); Mean Corpuscular HGB Conc 32.8 g/dl (32-36); Mean Corpuscular Hemoglobin 31.8 pg (26-34); Monocytes Absolute Auto 0.5 K/mm3 (0.1-0.6); Monocytes Percent Auto 10.2 % (2.6-8.5); Neutrophils Absolute Auto 3.5 K/mm3 (1.3-6.7); Neutrophils Percent Auto 70.2 % (45.5-73.1); Platelet Count Result 172 k/mm3 (150-375); Red Blood Count 3.36 M/mm3 (4.2-5.4); Red Cell Distribution Width 14.4 % (11.5-14.5)
[2020-12-12 22:25] VITALS: BP 142/85; PULSE 66; RESP 18; O2SAT 99
[2020-12-12 22:36] LABS: Alanine Aminotransferase 41 U/L (4-35); Albumin Level 2.6 g/dL (3.5-5.1); Alkaline Phosphatase 93 U/L (38-126); Anion Gap 1 mmol/L (8-16); Aspartate Amino Transferase 75 U/L (14-36); Bilirubin,Total 0.5 mg/dL (0.2-1.3); Blood Urea Nitrogen 10 mg/dL (7-17); Calcium 8.1 mg/dL (8.4-10.2); Carbon Dioxide 32 mmol/L (22-30); Chloride 108 mmol/L (98-107); Estimated CRCL calculation 43 ml/min; Estimated Glomerular Filt Rate > 60; Glucose 108 mg/dL (65-110); Potassium 3.3 mmol/L (3.4-5.0); Sodium 141 mmol/L (137-145)
[2020-12-12 22:37] VITALS: BP 138/78; PULSE 72
[2020-12-12 22:38] VITALS: BP 138/70; BP 142/68; PULSE 78; PULSE 80
[2020-12-12 22:48] LABS: Add Urine Microscopic? YES; Appearance Urine Cloudy (Clear); Bilirubin Urine Negative (Negative); Blood Urine Negative (Negative); Color Urine Yellow (Yellow); Glucose Urine UA Negative (Negative); Ketones Urine Negative (Negative); Leukocyte Esterase Ur 3+ LEU/UL (Negative); Mucus Urine Rare /lpf; Nitrate Urine Negative (Negative); Protein Urine Negative (Negative); Specific Grav Ur 1.013 (1.001-1.035); Squamous Epithelial Cell Urine Many /hpf (Few); WBC Urine 16-20 /hpf
[2020-12-12 23:23] VITALS: PULSE 70; RESP 16; O2SAT 97
--- NOTE | 2020-12-12 23:23 | PC.NURSE ---
Assumed care of pt at this time. Pt A&Ox2 on stretcher per baseline (disoriented to time). Pt denies pain and updated on POC.
[2020-12-13] MEDS: POTASSIUM CHLORIDE 20 MEQ TABLET PO (00:01)
[2020-12-13 00:02] VITALS: BP 145/71; PULSE 74; RESP 14; O2SAT 97
[2020-12-13] MEDS: NITROFURANTOIN MONOHYD MACROCR 100 MG CAP PO (00:02)
--- NOTE | 2020-12-13 00:05 | PC.NURSE ---
Bed alarm placed under pt for safety.
--- NOTE | 2020-12-13 00:06 | PC.NURSE ---
attempted to contact pt. family member to transport pt. home. no success.
--- NOTE | 2020-12-13 00:26 | PC.NURSE ---
Attmepted to give report to Arabella mosley at this time. Was informed receiving RN is on break and will call back when available
--- NOTE | 2020-12-13 00:33 | PC.NURSE ---
Waiting on [facility] to call Called [facility] to request transport. [phone]
[2020-12-13 01:27] VITALS: PULSE 60; RESP 14
--- NOTE | 2020-12-13 01:48 | PC.NURSE ---
No Return call from [facility]. called [facility] to request transport. declined
[2020-12-13 03:46] VITALS: BP 142/58; PULSE 72; RESP 16; O2SAT 97
--- NOTE | 2020-12-13 04:57 | PC.NURSE ---
[facility] here.
--- NOTE | 2020-12-13 05:07 | PC.NURSE ---
EMS arrived to transport pt, report given. Pt alert and upright on stretcher per baseline during transport out of ED.
== END 2020-12-13 05:07 ==
PROVIDERS: Emergency Provider General Practice; PCP Emergency Medicine
DX: S01.81XA Laceration without foreign body of other part of head, initial encounter (principal); S40.012A Contusion of left shoulder, initial encounter; N39.0 Urinary tract infection, site not specified; F03.90 Unspecified dementia, unspecified severity, without behavioral disturbance, psychotic disturbance, mood disturbance, and anxiety; I25.10 Atherosclerotic heart disease of native coronary artery without angina pectoris; J44.9 Chronic obstructive pulmonary disease, unspecified; I12.9 Hypertensive chronic kidney disease with stage 1 through stage 4 chronic kidney disease, or unspecified chronic kidney disease; N18.30 Chronic kidney disease, stage 3 unspecified; M86.9 Osteomyelitis, unspecified; Z79.82 Long term (current) use of aspirin; Z95.1 Presence of aortocoronary bypass graft; Z95.5 Presence of coronary angioplasty implant and graft; Z87.891 Personal history of nicotine dependence; M47.812 Spondylosis without myelopathy or radiculopathy, cervical region; I67.2 Cerebral atherosclerosis; I70.0 Atherosclerosis of aorta; M85.88 Other specified disorders of bone density and structure, other site; M85.812 Other specified disorders of bone density and structure, left shoulder; W18.30XA Fall on same level, unspecified, initial encounter
CPT/HCPCS: 12011; 36415; 70450; 71045; 72125; 73030; 80053; 81001; 85025; 87077; 87086; 87147; 87181; 87186; 99284; A9270

== ENCOUNTER 2020-12-27 17:16 | Inpatient (IN) | payer MEDICARE, MEDICAID, SELFPAY ==
--- NOTE | ~2020-12-27 | XR_ITS ---
EXAMINATION: XR chest 1V EXAM DATE: 12/27/2020 17:40 INDICATION: FALL, CAD, COPD, HTN . TECHNIQUE: Portable AP frontal chest x-ray was obtained. Comparison is made to prior examination from 12/12/2020. FINDINGS: Sternotomy wires are present without findings to suggest sternal dehiscence. Mild cardiomeg ilana. Mild hyperinflation. Biapical scarring. No confluent consolidation, pneumothorax or pleural effu nadia suspected. The bones are osteopenic. There are bony degenerative changes. IMPRESSION: 1. Cardiomegaly. 2. Hyperinflation. Reviewed, dictated and finalized at location A. MATERIAL INSPECTOR
--- NOTE | ~2020-12-27 | US_ITS ---
EXAMINATION: US abdomen limited DATE: 12/31/2020 11:48 INDICATION: Abnormal liver function tests. TECHNIQUE: Multiple grayscale and Doppler ultrasound images of the abdomen were obtained. COMPARISON: Chest CT 12/26/2009 FINDINGS: The visualized portions of the head and body of the pancreas are normal. The liver demonstr ates coarsened echotexture and surface nodularity, consistent with cirrhosis. The gallbladder is dist ended and contains gallstones. No gallbladder wall thickening. There is a positive sonographic Tran sign. The common duct is normal in caliber and measures 7 mm. IMPRESSION: 1. Distended gallbladder with gallstones and positive sonographic Tran sign, but no gallbladder wal l thickening. These findings are indeterminate for acute cholecystitis. If there is clinical concern for acute cholecystitis, consider hepatobiliary scintigraphy. 2. Cirrhosis of the liver. Reviewed, dictated and finalized at location B. FORMER IMPRESSION: 1. Distended gallbladder with gallstones and positive sonographic Tran sign, but no gallbladder wall thickening. These findings are indeterminate for acute cholecystitis. If there is clinical concern for acute cholecystitis, consider h epatobiliary scintigraphy. 2. Cirrhosis of the liver.
--- NOTE | ~2020-12-27 | XR_ITS ---
EXAMINATION: XR hip RT 2V w AP pelvis EXAM DATE: 12/27/2020 17:39 INDICATION: Initial encounter following injury, with pain of the right hip. TECHNIQUE: Right hip frontal, crosstable lateral projections for interpretation. Frontal projection p medhat. There is no prior study for comparison. FINDINGS: There is acute comminuted posttraumatic right hip intertrochanteric/subtrochanteric fractur e with medial angulation. No dislocation. Pelvic ring appears intact. Lumbar dextroscoliosis, spondyl osis. Some right lateral subluxation L4 on L5. There are arterial calcifications, arteriosclerosis. IMPRESSION: Acute comminuted right hip intertrochanteric/subtrochanteric fracture. Reviewed, dictated and finalized at location A. RT KEEPER IMPRESSION: Acute comminuted right hip intertrochanteric/subtrochanteric fract ure.
--- NOTE | ~2020-12-27 | CT_ITS ---
EXAMINATION: CT femur RT wo con DATE: 01/02/2021 08:01 INDICATION: Postoperative anemia and swelling TECHNIQUE: High resolution computed tomography (CT) of the right thigh/femur was performed without in travenous contrast. Additional sagittal and coronal reconstructions were performed. Automated exposur e control and iterative reconstruction technique were employed. The dose-length product was 896.37 mG y-cm. COMPARISON: None FINDINGS: Postoperative change of recent internal fixation of a comminuted intratrochanteric/subtrochanteric fr acture of the proximal right femur. The fracture is fixed with an antegrade intramedullary shelly with i nterlocking femoral neck screw and additional more distal interlocking screw at the junction of the p roximal to mid thirds of the femoral diaphysis. Alignment of the fixed femoral head neck and main alex physeal fragments appears near-anatomic. There is residual mild displacement of the unfixed fragments comprising portions of the anterolateral greater trochanter called to the level of the footplates of the gluteal tendons as well a fragment comprising the lesser tuberosity which remains proximally dis tracted. There is asymmetric diffuse soft tissue swelling throughout the right thigh relative to the left thig h on the current topogram. There is expected postoperative gas and as well as nonloculated fluid scat tered throughout the musculature and subcutaneous fat of the thigh and right buttocks. A more discret e collection of slightly higher attenuation fluid consistent with hematoma is located along the later al superolateral margin of the greater trochanteric fragment and measures approximately 5.0 x 2.1 x 4 .9 cm in maximal dimensions. There is an approximately 7.3 x 3.7 x 2.1 cm collection of displaced mar row fat interspersed with tiny bone fragments arising from the fracture and located within the proxim al vastus intermedius muscle. No new fractures identified. At least mild osteoarthritis at the right hip and knee. There is a moder ate fluid attenuation right knee joint effusion. Scattered atherosclerotic calcification throughout t he right thigh extending from the right external iliac artery to the right popliteal artery. Small am ount of gas is seen within the bladder suggesting prior Esquivel catheterization. No pathologically enla rged right inguinal lymphadenopathy. IMPRESSION: 1. Interval open reduction internal fixation of a comminuted intertrochanteric/subtrochanteric fractu re the proximal right femur which is in near-anatomic alignment as detailed above. 2. 5.0 x 2.1 x 4.9 cm hematoma at the operative bed along side the right greater trochanter. 3. More extensive nonloculated pleural density fluid and scattered foci of postoperative gas scattere d throughout the soft tissues of the right buttock and thigh resulting in diffuse asymmetric swelling of the right thigh relative to the left. 4. 7.3 x 3.7 x 2.1 cm collection of displaced marrow fat situated in the proximal vastus intermedius intermedius muscle at the level of the fracture. 5. Moderate-sized simple fluid attenuation right knee joint effusion. Reviewed, dictated and finalized at location A. ERS SALESPERSON IMPRESSION: 1. Interval open reduction internal fixation of a comminuted intertrochanteric/ subtrochanteric fracture the proximal right femur which is in near-anatomic ali gnment as detailed above. 2. 5.0 x 2.1 x 4.9 cm hematoma at the operative bed along side the right greate r trochanter. 3. More extensive nonloculated pleural density fluid and scattered foci of post operative gas scattered throughout the soft tissues of the right buttock and th igh resulting in diffuse asymmetric swelling of the right thigh relative to the left. 4. 7.3 x 3.7 x 2.1 cm collection of displaced
--- NOTE | ~2020-12-27 | XR_ITS ---
XR surgery orthopedic 12/29/2020 17:56 Indication: Right IT nail placement for proximal femoral fracture Procedure: 4 fluoroscopic images of the right hip. 746 seconds of fluoroscopy. Comparison: 12/27/2020 Findings: Interval placement of right femoral intertrochanteric nail with intramedullary shelly. There i s a single distal interlocking screw. Fracture fragments in near-anatomic alignment. Impression: 1: Near-anatomic alignment of right femoral intertrochanteric fracture post placement of intertrochan teric nail. Reviewed, dictated and finalized at location A. R CONTROL [employer]ATION ENGINEER Impression: 1: Near-anatomic alignment of right femoral intertrochanteric fracture post kenzie cement of intertrochanteric nail.
--- NOTE | ~2020-12-27 | CT_ITS ---
EXAMINATION: CT brain [facility] EXAM DATE: 12/27/2020 20:35 INDICATION: Fall, altered mental status. TECHNIQUE: Spiral CT of the head was performed without contrast. Axial, coronal and sagittal images were reviewed. The dose-length product (DLP) for this examination was 605.33 mGy-cm. The exposure w as tailored according to patient size, and iterative reconstruction (ASIR) was used as additional dos e reduction technique. Comparison is made to prior examination from 12/12/2020. FINDINGS: There is no acute intraparenchymal hemorrhage. No evidence of intraparenchymal brain mass lesion. No evidence of acute infarction. Please note that initial head CT has limited sensitivity f or small or acute infarctions. Left-sided choroidal fissure cyst. There is moderate periventricular and subcortical hypodensity, nonspecific but probably related to small vessel ischemic disease. Th ere is moderate prominence of the sulci and ventricles related to cerebral atrophy. There is mild hyp erostosis frontalis. No There is intracranial carotid arteriosclerosis. There are no extra-axial co llections. There is no mass effect or midline shift. Patient has had bilateral ocular lens surgery. Soft tissue is unremarkable. The visualized sinuses and mastoid air cells are well aerated. IMPRESSION: 1. No acute intracranial findings. 2. Chronic age related findings. Reviewed, dictated and finalized at location A. PACKER
[2020-12-27 17:24] VITALS: BP 162/83; PULSE 60; RESP 16; TEMP 36.4; O2SAT 98
--- NOTE | 2020-12-27 17:35 | ECG_ITS ---
Measurements Intervals [place] Rate: 61 P: 52 [place]: 170 QRS: 3 QRSD: 110 T: -6 QT: 439 QTc: 445 Interpretive Statements SINUS RHYTHM INTRAVENTRICULAR CONDUCTION DELAY DELAYED PRECORDIAL R/S TRANSITION CONSIDER INFERIOR INFARCT, AGE INDETERMINATE BORDERLINE ST-T WAVE ABNORMALITY- ANTEROLATERAL LEADS BASELINE ARTIFACT- I, II, III, AVR, AVL, V2 ABNORMAL ECG Electronically Signed On 12-27-2020 19:58:05 BEAN ROASTER by Trae Stewart D.O.
[2020-12-27 18:14] LABS: Basophils Percent Auto 0.7 % (0.2-1.2); Eosinophils Absolute Auto 0.3 K/mm3 (0-0.3); Eosinophils Percent Auto 5.5 % (0-4.4); Hematocrit 35.6 % (37.0-47.0); Hemoglobin 11.8 g/dL (12.0-15.0); Immature Granulocyte Absolute 0.03 K/mm3 (0.00-0.031); Immature Granulocyte Percent A 0.5 % (0-0.5); Lymphocytes Absolute Auto 0.87 K/mm3 (0.9-3.2); Lymphocytes Percent Auto 14.4 % (18.3-44.2); Mean Corpuscular HGB Conc 33.1 g/dl (32-36); Mean Corpuscular Hemoglobin 31.9 pg (26-34); Mean Corpuscular Volume 96.2 fl (80-100); Mean Platelet Volume 9.1 fl (7.4-10.4); Monocytes Absolute Auto 0.6 K/mm3 (0.1-0.6); Monocytes Percent Auto 9.3 % (2.6-8.5); Neutrophils Absolute Auto 4.2 K/mm3 (1.3-6.7); Neutrophils Percent Auto 69.6 % (45.5-73.1); Platelet Count Result 279 k/mm3 (150-375); Red Cell Distribution Width 14.5 % (11.5-14.5)
[2020-12-27 18:25] LABS: INR 1.1; Prothrombin Time 13.9 Seconds (11.1-14.7)
[2020-12-27 18:27] LABS: Alanine Aminotransferase 48 U/L (4-35); Albumin Level 3.2 g/dL (3.5-5.1); Alkaline Phosphatase 145 U/L (38-126); Anion Gap 5 mmol/L (8-16); Aspartate Amino Transferase 69 U/L (14-36); Bilirubin,Total 0.8 mg/dL (0.2-1.3); Blood Urea Nitrogen 10 mg/dL (7-17); Calcium 8.6 mg/dL (8.4-10.2); Carbon Dioxide 26 mmol/L (22-30); Chloride 104 mmol/L (98-107); Estimated CRCL calculation 39 ml/min; Estimated Glomerular Filt Rate > 60; Glucose 107 mg/dL (65-110); Potassium 3.7 mmol/L (3.4-5.0); Sodium 135 mmol/L (137-145)
[2020-12-27 19:00] VITALS: BP 144/76; PULSE 71; RESP 14; O2SAT 98
--- NOTE | 2020-12-27 19:00 | PC.NURSE ---
Assuming care of pt.
--- NOTE | 2020-12-27 19:15 | ED.FALL ---
HPI - Fall General Chief Complaint: Fall Stated Complaint: fall,hip deformity Time Seen by Provider: 12/27/20 18:46 Source: EMS and old records reviewed Mode of arrival: EMS Limitations: dementia History of Present Illness HPI Narrative: 80-year-old female history of dementia snf resident oriented x1, sent by snf status post fall. According to snf patient had right leg shortening and tenderness and pain after falling while she was trying to transfer to her walker. No other injury. No LOC, Patient is not on blood thinners. Currently patient with no complaints. Related Data Home Medications Medication Instructions Recorded Confirmed aspirin 81 mg tablet,delayed 81 mg PO DAILY 01/08/19 12/27/20 release acetaminophen 500 mg PO DAILY PRN 12/27/20 12/27/20 atorvastatin 40 mg PO HS 12/27/20 12/27/20 hydrocodone-acetaminophen 1 tablet PO Q6H PRN 12/27/20 12/27/20 mirtazapine 7.5 mg PO HS 12/27/20 12/27/20 potassium chloride 10 meq PO DAILY 12/27/20 12/27/20 Allergies Allergy/AdvReac Type Severity Reaction Status Date / Time Penicillins Allergy Unknown Unknown Verified 12/27/20 22:18 Review of Systems Review of Systems: ROS unobtainable: Yes unobtainable due to mental status [facility] Past Medical History Medical History (Updated 01/01/21 @ 09:54 by Chiara Hernandez PA-C) Acute bilateral low back pain without sciatica CAD (coronary artery disease) Chronic obstructive pulmonary disease CKD (chronic kidney disease) stage 3, GFR 30-59 ml/min COPD (chronic obstructive pulmonary disease) Dementia Depression Dyslipidemia Dysthymia HLD (hyperlipidemia) HTN (hypertension) Osteomyelitis of left foot Post menopausal problems Surgical History Surgical History History of PTCA History of stent insertion of renal artery left renal artery stent 2006 Hx of CABG 2012 Family History Family History Grandparent Diabetes mellitus Acute myocardial infarction Heart disease Father Heart disease Mother Coronary artery disease Social History Social History Social History: She lived at home alone until her hospitalization July 2020 at which time she was admitted to [facility]. Primary care physician: Dr. Malcom Judd Code status: Full code Smoking packs per day: 2 Smoking cigarettes per day: 40.0 Years smoked: 35 Smoking pack-years: 70.00 Smoking status: Never smoker Second hand tobacco smoke exposure: No Alcohol intake: never Drinks per week: 10 Alcohol use details: She used to drink 10 glasses a wine a week. Substance use: never Substance use type: does not use Additional living arrangements comments: She lives with her 2 daughters. She used . 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 Gender identity (if verbalized by the patient): Female Spiritual care concerns: No Exam Narrative: General: alert, afebrile, no complaints Head: normocephalic, atraumatic Eyes: EOMI bilaterally, anicteric, no injection ENT: dry mucous membranes, oropharynx patent, no rhinorrhea Neck: supple, trachea midline, no JVD Chest: equal chest rise bilaterally, no chest wall trauma noted Lungs: clear to auscultation bilaterally, respirations unlabored CV: regular rate, no TAQUERIA B, calf size equal bilaterally Abd: soft, non-distended, non-tender EXT: RLE shortened, internally rotated, DP 2+ Skin: warm, dry, no pallor Neuro: alert, oriented x 1; CN 2-12 grossly intact, no dysarthria Psych: affect appropriate, thought content normal Course Course Emergency Course: 80-year-old female history of dementia snf resident oriented x1, sent by snf status post fall. According to asad
[2020-12-27 20:33] LABS: Creatine Kinase 33 U/L (30-135)
--- NOTE | 2020-12-27 20:34 | PM.IMHP ---
H&P: HPI History of Present Illness Date/Time: 12/27/20 20:34 Chief Complaint: Fall right with leg shortening Narrative: 80-year-old female with a past medical history of coronary artery disease, diastolic congestive heart failure, renal artery stenosis, COPD, chronic kidney disease and dementia who presented to the ER from [facility] after a fall. Patient is only able to provide limited history of she is alert and oriented times 2 at baseline. According to the EMS report patient was in the dining room and had attempted to ambulate without her walker. Her fall was not witnessed. The patient initially denied any pain but did grimace when EMS staff palpated her hip deformity. The patient was able to lift her hips in the lower EMS to slight if she would under her for transfer.At the time of my evaluation the patient could no longer remember falling and did not know why she was in the ER. She thought she was in the ER because her arm was hurting. When I asked her about her hip she stated that she could feel it hurt a little bit. With the patient was still able to shift around on the bed. She is unable to provide any other review of systems as she is only alert oriented x1 at the time of my evaluation. Review of Systems Review of Systems: ROS unobtainable: Yes unobtainable due to medical condition (Dementia) [facility] Past Medical History Medical History Acute bilateral low back pain without sciatica CAD (coronary artery disease) Chronic obstructive pulmonary disease CKD (chronic kidney disease) stage 3, GFR 30-59 ml/min COPD (chronic obstructive pulmonary disease) Dementia Depression Dyslipidemia Dysthymia HLD (hyperlipidemia) HTN (hypertension) Osteomyelitis of left foot Post menopausal problems Surgical History Surgical History History of PTCA History of stent insertion of renal artery left renal artery stent 2006 Hx of CABG 2012 Family History Family History Grandparent Diabetes mellitus Acute myocardial infarction Heart disease Father Heart disease Mother Coronary artery disease Social History Social History (Updated 12/28/20 @ 00:21 by Luz Laws DO) Social History: She lived at home alone until her hospitalization July 2020 at which time she was admitted to [facility]. Primary care physician: Dr. Malcom Judd Code status: Full code Smoking packs per day: 2 Smoking cigarettes per day: 40.0 Years smoked: 35 Smoking pack-years: 70.00 Smoking status: Never smoker Second hand tobacco smoke exposure: No Alcohol intake: never Drinks per week: 10 Alcohol use details: She used to drink 10 glasses a wine a week. Substance use: never Substance use type: does not use Additional living arrangements comments: She lives with her 2 daughters. She used . 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 Gender identity (if verbalized by the patient): Female Spiritual care concerns: No Meds Home Medications and Allergies Home Medications Medication Instructions Recorded Confirmed Type aspirin 81 mg tablet,delayed 81 mg PO DAILY 01/08/19 12/27/20 History release carvedilol [Coreg] 1.56 mg PO Q12HR 30 Days #180 07/30/20 12/27/20 Rx tablet sertraline 100 mg tablet 100 mg PO DAILY #90 tablet 09/15/20 12/27/20 Rx acetaminophen 500 mg PO DAILY PRN 12/27/20 12/27/20 History atorvastatin 40 mg PO HS 12/27/20 12/27/20 History hydrocodone-acetaminophen [[place]] 1 tablet PO Q6H PRN 12/27/20 12/27/20 History mirtazapine 7.5 mg PO HS 12/27/20 12/27/20 History potassium chloride 10 meq PO DAILY 12/27/20 12/27/20 History Allergies Allergy/AdvReac Type Severity Reaction Status Date / Jacoby
[2020-12-27 20:56] VITALS: BP 123/68; PULSE 70; RESP 18; O2SAT 100
[2020-12-27 21:56] VITALS: BP 122/75; PULSE 72; RESP 18; O2SAT 98
[2020-12-27 22:00] VITALS: BP 164/75; PULSE 58; PULSE 63; RESP 18; TEMP 36.1; O2SAT 97; BMI 17.6
--- NOTE | 2020-12-27 22:00 | ADMGEN ---
This patient, Michelle Porter, was admitted to 2 Medical Room 257-. Patient/family oriented to hospital policies and general routines including ID bracelet, bed and alarms, visiting hours, pain management, procedures, bathroom and other care routines, personal items, smoking policy, room service/diet, and visiting hours. Information on how to activate the Rapid Response Team has been discussed. Patient/Family are encouraged to report perceived risks to care and to ask questions if they do not understand what they are told or what they should do.
[2020-12-27] MEDS: HYDROcodone/acetaminophen (*CRX) 5-325 MG TABLET 1 TAB PO (22:56)
[2020-12-28] VITALS (12 sets, daily range): BP systolic 111–143; BP diastolic 48–69; PULSE 57–74; RESP 14–16; TEMP 36.1–37.1; O2SAT 98–100
[2020-12-28] MEDS: MIRTAZAPINE 7.5 MG TABLET PO ×2 (00:46→20:47)
[2020-12-28] MEDS: carvediloL 1.56 MG TABLET PO ×3 (00:46→20:47)
[2020-12-28] MEDS: POTASSIUM CHLORIDE 10 MEQ TABLET.ER PO (09:21)
[2020-12-28] MEDS: SERTRALINE HCL 50 MG TABLET 100 MG PO (09:22)
[2020-12-28] MEDS: HYDROcodone/acetaminophen (*CRX) 5-325 MG TABLET 1 TAB PO ×2 (09:22→18:31)
--- NOTE | 2020-12-28 10:31 | PM.IMPN ---
Progress Note: A&P Assessment and Plan (1) Closed right hip fracture: Code(s): S72.001A - Fracture of unspecified part of neck of right femur, initial encounter for closed fracture Status: Acute Assessment and Plan: Patient with left heart catheterization on in December of 2019, currently EKG with no acute changes. Patient hemodynamically stable. Recent echocardiogram with ejection fraction in the 50%. Patient medically cleared for surgery Orthopedic surgery has been consulted will await further recommendations. Patient is high risk for surgical intervention by nature of age, coronary artery disease and COPD. She appears euvolemic and has no active cardiac symptoms, her EKG stable with no evidence of cardiac arrhythmia. Risk and benefits of surgical intervention will need to be discussed with patient's family. Patient's medical conditions appear to be stable at this time. P.r.n. pain medications have been provided. (2) CAD (coronary artery disease): Qualifiers: Coronary Disease-Associated Artery/Lesion type: [place] artery [place] vs. transplanted heart: [place] heart Associated angina: with stable angina Qualified Code(s): I25.118 - Atherosclerotic heart disease of [place] coronary artery with other forms of angina pectoris Code(s): I25.10 - Atherosclerotic heart disease of [place] coronary artery without angina pectoris Status: Chronic Assessment and Plan: Chest pain-free, stable. Will hold the patient's home baby aspirin. Will continue patient's atorvastatin and Coreg. (3) Transaminitis: Code(s): R74.01 - Elevation of levels of liver transaminase levels Status: Acute Assessment and Plan: Continue to monitor. Will repeat CMP. Mild transaminitis with no evidence of biliary obstruction. Will continue to monitor. If LFTs worsen consider right upper quadrant ultrasound. Subjective Date/time seen: 12/28/20 10:31 I am okay Review of Systems Review of Systems: Patient presented to the emergency room after sustaining a fall at long term where she resides. 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) Exam Narrative: Laying in bed Const: General: comfortable, no acute distress, well developed, alert and awake Nutritional Appearance: thin Orientation/consciousness: oriented to person and oriented to place HENMT: Head: normal to inspection, normocephalic and atraumatic Ears: hearing grossly normal bilaterally General nose exam: Normal external nose present Face and sinus: normal facial exam Mouth: Yes Normal oral and palatal mucosa present Eyes: General: appearance normal, both eyes and all related structures Alignment and Position: alignment normal Sclera: sclerae normal Pupils: Equal, round and reactive pupils present EOM: EOMs intact bilaterally Neck: Neck: normal visual inspection, full ROM, no lymphadenopathy, supple and no JVD Thyroid: thyroid normal Lymphatic: no lymphadenopathy noted Chest: Chest palpation & inspection: abnormal inspection of the chest (Old mid sternotomy scar) Resp: Effort & Inspection: normal respiratory effort and able to speak in complete sentences Auscultation: clear to auscultation bilaterally, no crackles, no rales, no rhonchi and no wheezes Cardio: Jugular venous distension: no JVD Rate: regular rate Rhythm: regular rhythm Heart sounds: S1 normal heart sound present and S2 normal heart sound present GI: Inspection: normal to inspection GI Palp: Yes Soft to palpation, No Tenderness to palpation present (GI), No Guarding due to palpation present (GI) and Yes No hepatosplenomegaly present : General: Yes deferred Skin: Rashes: no rashes Wounds: no wounds Neuro: General: oriented to person, oriented to place and CN's II-XI intact bilaterally Cranial nerves: Yes CN's II-XII intact bilaterally and Yes Equal, round and reactive pupils present Cog
[2020-12-28] MEDS: MORPHINE SULFATE (*CRX) 2 MG/ML INJ IV PUSH (13:34)
[2020-12-28 16:57] LABS: Alanine Aminotransferase 41 U/L (4-35); Albumin Level 3.2 g/dL (3.5-5.1); Alkaline Phosphatase 105 U/L (38-126); Anion Gap 5 mmol/L (8-16); Aspartate Amino Transferase 60 U/L (14-36); Bilirubin,Total 0.7 mg/dL (0.2-1.3); Blood Urea Nitrogen 12 mg/dL (7-17); Calcium 8.4 mg/dL (8.4-10.2); Carbon Dioxide 26 mmol/L (22-30); Chloride 103 mmol/L (98-107); Estimated CRCL calculation 35 ml/min; Estimated Glomerular Filt Rate > 60; Glucose 141 mg/dL (65-110); Potassium 3.8 mmol/L (3.4-5.0); Sodium 134 mmol/L (137-145)
[2020-12-29] VITALS (17 sets, daily range): BP systolic 113–175; BP diastolic 61–96; PULSE 62–92; RESP 12–19; TEMP 36.1–37.3; O2SAT 94–100
[2020-12-29] MEDS: MORPHINE SULFATE (*CRX) 2 MG/ML INJ IV PUSH (06:55)
[2020-12-29 07:56] LABS: Glucose Point of Care 79 mg/dl (65-105)
[2020-12-29] MEDS: POTASSIUM CHLORIDE 10 MEQ TABLET.ER PO (08:32)
[2020-12-29] MEDS: carvediloL 1.56 MG TABLET PO (08:32)
[2020-12-29] MEDS: SERTRALINE HCL 50 MG TABLET 100 MG PO (08:32)
--- NOTE | 2020-12-29 09:14 | PM.CNOR ---
Assessment and Plan Assessment and plan (1) Closed right hip fracture: Qualifiers: Encounter type: initial encounter Qualified Code(s): S72.001A - Fracture of unspecified part of neck of right femur, initial encounter for closed fracture Code(s): S72.001A - Fracture of unspecified part of neck of right femur, initial encounter for closed fracture Status: Acute Assessment and Plan: Radiographs of the right hip reveal an acute comminuted right hip intertrochanteric/subtrochanteric fracture. the fracture type, history, and nature, etiology and course of natural history reviewed with the patient's power of workers compensation defense attorney, Gisselle. Conservative and operative treatment options reviewed as well as the risks and benefits of each. Patient is at high risk for surgical intervention per the hospitalist team. She has been cleared by the hospitalist team for surgical intervention. We discussed the risks at length with the patient daughter and power of workers compensation defense attorney, Gisselle. Long discussion with Dr. Santacruz and Gisselle as well. Risks of surgery including but not limited to neurovascular damage, wound complications, blood clot, pulmonary embolus, stroke, myocardial infarction, anesthetic risks up to and including were reviewed. Continued pain and possible dysfunction were explained. No guarantees were offered. The patient understands and wishes to proceed. Patient's daughter wishes to proceed with consent for surgical intervention. Plan: Right Hip Long Gamma Nail Insertion by Dr. Santacruz Obtain consent, Bedrest, pain control, ice lateral hip, NPO in the interim. Anticoagulation previously held by hospitalist service. Additional Plan Physical exam, radiographs and plan of care discussed at length with Dr. Santacruz. Dr. Santacruz discussed conservative and operative treatment options with the family today as well via telephone. Dr. Santacruz agrees with current plan of care. No further recommendations. Surgical intervention to be performed at 3:00 p.m. today. History of Present Illness HPI Consult date: 12/29/20 Consult reason: fracture (Right Hip Fracture ) Chief complaint: R Hip Fracture Narrative: 80-year-old female admitted to [facility] via EMS status post fall. Patient has a history of dementia and is a poor historian. She lives at a intermediate facility. Per the medical record, she had an unwitnessed fall in the dining room which resulted in her inability to stand. EMS was contacted and patient was transported to the ER. Radiographs of the right hip reveal an acute comminuted right hip intertrochanteric/subtrochanteric fracture. The patient was admitted to the hospitalist service and Dr. Santacruz was consulted for orthopedic evaluation. The patient has very little history regarding her fall. She denies pain today. She is not answering questions appropriately. The remaining history obtained from her daughter Gisselle. Review of Systems Review of Systems: ROS unobtainable: Yes unobtainable due to mental status PMFSH Past Medical History Medical History Acute bilateral low back pain without sciatica CAD (coronary artery disease) Chronic obstructive pulmonary disease CKD (chronic kidney disease) stage 3, GFR 30-59 ml/min COPD (chronic obstructive pulmonary disease) Dementia Depression Dyslipidemia Dysthymia HLD (hyperlipidemia) HTN (hypertension) Osteomyelitis of left foot Post menopausal problems Surgical History Surgical History History of PTCA History of stent insertion of renal artery left renal artery stent 2006 Hx of CABG 2012 Family History Family History Grandparent Diabetes mellitus Acute myocardial infarction Heart disease Father Heart disease Mother Coronary artery disease Social History Social
--- NOTE | 2020-12-29 09:39 | PM.IMPN ---
Progress Note: A&P Assessment and Plan (1) Closed right hip fracture: Code(s): S72.001A - Fracture of unspecified part of neck of right femur, initial encounter for closed fracture Status: Acute Assessment and Plan: Orthopedic note appreciated, follow recommendations. Patient with left heart catheterization on in December of 2019, currently EKG with no acute changes. Patient hemodynamically stable. Recent echocardiogram with ejection fraction in the 50%. Patient medically cleared for surgery Orthopedic surgery has been consulted will await further recommendations. Patient is high risk for surgical intervention by nature of age, coronary artery disease and COPD. She appears euvolemic and has no active cardiac symptoms, her EKG stable with no evidence of cardiac arrhythmia. Risk and benefits of surgical intervention will need to be discussed with patient's family. Patient's medical conditions appear to be stable at this time. P.r.n. pain medications have been provided. (2) CAD (coronary artery disease): Qualifiers: Associated angina: with stable angina Coronary Disease-Associated Artery/Lesion type: [place] artery [place] vs. transplanted heart: [place] heart Qualified Code(s): I25.118 - Atherosclerotic heart disease of [place] coronary artery with other forms of angina pectoris Code(s): I25.10 - Atherosclerotic heart disease of [place] coronary artery without angina pectoris Status: Chronic Assessment and Plan: No new issues Chest pain-free, stable. Will hold the patient's home baby aspirin. Will continue patient's atorvastatin and Coreg. (3) Transaminitis: Code(s): R74.01 - Elevation of levels of liver transaminase levels Status: Acute Assessment and Plan: Continue to monitor. Will repeat CMP. Mild transaminitis with no evidence of biliary obstruction. Will continue to monitor. If LFTs worsen consider right upper quadrant ultrasound. Additional Plan No new issues overnight. 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) Exam Narrative: Laying in bed Const: General: comfortable, no acute distress, well developed, alert and awake Nutritional Appearance: thin Orientation/consciousness: oriented to person and oriented to place HENMT: Head: normal to inspection, normocephalic and atraumatic Ears: hearing grossly normal bilaterally General nose exam: Normal external nose present Face and sinus: normal facial exam Mouth: Yes Normal oral and palatal mucosa present Eyes: General: appearance normal, both eyes and all related structures Alignment and Position: alignment normal Sclera: sclerae normal Pupils: Equal, round and reactive pupils present EOM: EOMs intact bilaterally Neck: Neck: normal visual inspection, full ROM, no lymphadenopathy, supple and no JVD Thyroid: thyroid normal Lymphatic: no lymphadenopathy noted Chest: Chest palpation & inspection: abnormal inspection of the chest (Old mid sternotomy scar) Resp: Effort & Inspection: normal respiratory effort and able to speak in complete sentences Auscultation: clear to auscultation bilaterally, no crackles, no rales, no rhonchi and no wheezes Cardio: Jugular venous distension: no JVD Rate: regular rate Rhythm: regular rhythm Heart sounds: S1 normal heart sound present and S2 normal heart sound present GI: Inspection: normal to inspection : General: Yes deferred Skin: Rashes: no rashes Wounds: no wounds Neuro: General: oriented to person, oriented to place, CN's II-XI intact bilaterally and Unable to assess gait Cranial nerves: Yes CN's II-XII intact bilaterally and Yes Equal, round and reactive pupils present Cognition (Neuro): normal cognition Speech: no
--- NOTE | 2020-12-29 13:35 | PC.NURSE ---
To OR per Bed, IV Saline Locked. Report given to Rebeka, face to face. Patients POA at bedside and going with patient to Pre-op
[2020-12-29] MEDS: LACTATED RINGERS 1,000 ML 30 ML IV CONT (14:00)
[2020-12-29] MEDS: TRANEXAMIC ACID 1,000MG/ISO100 1,000 MG/100 ML BAG 200 MG IVPB (14:26)
--- NOTE | 2020-12-29 15:16 | WPDANESEPPF ---
Anes - Initial Pre Proc Eval Procedure: Operation Date: 12/29/20 15:00 Proposed Procedures p Right Intertrochanteric Nail - Raghav Santacruz MD Date/Time: 12/29/20 15:16 Surgeon: Luz Laws DO Pre Op Diagnosis: R Hip Fracture Patient Data Age: 80 Gender: F Height: 1.52 m Weight: 40.9 kg Last Vital Signs Temp 37.3 C 12/29/20 05:34 Pulse 62 12/29/20 12:00 Resp 16 12/29/20 05:34 BP 162/75 H 12/29/20 05:34 Pulse Ox 98 12/29/20 05:34 Allergies Allergy/AdvReac Type Severity Reaction Status Date / Time Penicillins Allergy Unknown Unknown Verified 12/27/20 22:18 Home Medications Medication Instructions Recorded Confirmed Type aspirin 81 mg tablet,delayed 81 mg PO DAILY 01/08/19 12/27/20 History release carvedilol [Coreg] 1.56 mg PO Q12HR 30 Days #180 07/30/20 12/27/20 Rx tablet sertraline 100 mg tablet 100 mg PO DAILY #90 tablet 09/15/20 12/27/20 Rx acetaminophen 500 mg PO DAILY PRN 12/27/20 12/27/20 History atorvastatin 40 mg PO HS 12/27/20 12/27/20 History hydrocodone-acetaminophen [[place]] 1 tablet PO Q6H PRN 12/27/20 12/27/20 History mirtazapine 7.5 mg PO HS 12/27/20 12/27/20 History potassium chloride 10 meq PO DAILY 12/27/20 12/27/20 History Laboratory Tests 12/28/20 12/29/20 16:39 07:50 Sodium 134 mmol/L L mmol/L (137-145) Potassium 3.8 mmol/L mmol/L (3.4-5.0) Chloride 103 mmol/L mmol/L (98-107) Carbon Dioxide 26 mmol/L mmol/L (22-30) Anion Gap 5 mmol/L L mmol/L (8-16) BUN 12 mg/dL mg/dL (7-17) Creatinine 0.70 mg/dL mg/dL (0.7-1.0) Estim Creat Clear Calc 35 ml/min ml/min Estimated GFR > 60 (59 - ) Glucose 141 mg/dL H mg/dL (65-110) POC Capillary Glucose 79 mg/dl mg/dl (65-105) Calcium 8.4 mg/dL mg/dL (8.4-10.2) Total Bilirubin 0.7 mg/dL mg/dL (0.2-1.3) AST 60 U/L H U/L (14-36) ALT 41 U/L H U/L (4-35) Alkaline Phosphatase 105 U/L U/L (38-126) Total Protein 6.0 g/dL L g/dL (6.3-8.2) Albumin 3.2 g/dL L g/dL (3.5-5.1) Patient hx anesthesia problems: none Family hx anesthesia problems: none Results Review: All pre-operative results and documents have been reviewed as part of the pre-operative evaluation. ON LICENSE OF [facility] Past Medical History Medical History Acute bilateral low back pain without sciatica CAD (coronary artery disease) Chronic obstructive pulmonary disease CKD (chronic kidney disease) stage 3, GFR 30-59 ml/min COPD (chronic obstructive pulmonary disease) Dementia Depression Dyslipidemia Dysthymia HLD (hyperlipidemia) HTN (hypertension) Osteomyelitis of left foot Post menopausal problems Surgical History Surgical History History of PTCA History of stent insertion of renal artery left renal artery stent 2006 Hx of CABG 2012 Family History Family History Grandparent Diabetes mellitus Acute myocardial infarction Heart disease Father Heart disease Mother Coronary artery disease Social History Social History Social History: She lived at home alone until her hospitalization July 2020 at which time she was admitted to [facility], [place]. Primary care physician: Dr. Malcom Judd Code status: Full code Smoking packs per day: 2 Smoking cigarettes per day: 40.0 Years smoked: 35 Smoking pack-years: 70.00 Smoking status: Never smoker Second hand tobacco smoke exposure: No Alcohol intake: never Drinks per week: 10 Alcohol use details: She used to drink 10 glasses a wine a week. Substance use: never Substance use type: does not use Additional living arrangements comments: She lives with
[2020-12-29] MEDS: ceFAZolin 2 GM/D5W 50 ML 2 GM/50 ML BAG IVPB (15:48)
--- NOTE | 2020-12-29 17:52 | P.OP_ITS ---
Procedure Note - Detailed Date of Procedure 12/29/20 Pre-op Diagnosis R HIP INTERTROCH/SUBTROCHANTERIC FEMUR FRACTURE Post-op Diagnosis same Procedure Performed INSERTION LONG GAMMA EDITA RIGHT FEMUR HIP Surgeon Raghav Santacruz MD Anesthesia general Description of Procedure THE PATIENT WAS TAKEN TO THE OPERATING ROOM AND PLACED ON A FRACTURE TABLE AFTER GIVEN GENERAL ANESTHESIA. THE RIGHT LOWER EXTREMITY WAS PLACED IN A TRACTION BOOT AND USING SOME TRACTION AND INTERNAL ROTATION THE INNER TROCHANTERIC/SUBTRO CHANTERIC FRACTURE WAS REDUCED TO NEAR ANATOMIC POSITION. NEXT THE LEFT LOWER EXTREMITY WAS PREPPED AND DRAPED IN THE STERILE FASHION. AN INCISION WAS MADE PROXIMAL TO THE TIP OF THE GREATER TROCHANTER AND DISSECTION CONTINUED TILL THE TIP OF THE GREATER TROCHANTER WAS PALPATED. A GUIDE PIN WAS PLACED DOWN THE FEMORAL CANAL AND PAST THE FRACTURE SITE. THIS WAS CHECKED ON FLUOROSCOPY AND FOUND TO BE IN GOOD POSITION. AN INITIAL REAMER WAS USED TO REAM THE FEMORAL CANAL. A 11 BY 360 MM ARTHREX GAMMA TYPE EDITA WAS INSERTED TILL THE CORRECT POSITION WAS IDENTIFIED ON XRAY PROXIMALLY AND DISTALLY TO THE TIP OF THE SUPERIOR POLE OF THE PATELLA. A GUIDE PIN WAS INSERTED THROUGH THE FEMORAL NECK AT 130 DEG ANGLE TILL IT REACHED THE TIP OF THE SUB CHONDRAL BONE SEEN ON XRAY. AFTER REAMING, LAG SCREW WAS INSERTED MEASURING 85 MM. XRAYS SHOWED IT TO BE IN GOOD POSITION. THE LAG SCREW WAS LOCKED PROXIMALLY WITH A LOCKING DEVICE. NEXT A DISTAL LOCKING SCREW WAS PLACED ACROSS THE EDITA AT THE MID SECTION AND WAS IN GOOD POSITION ON XRAY. THE TRACTION WAS RELEASED. THE WOUNDS WERE WASHED. THE DEEP FASCIA WAS REPAIRED WITH 0 VICRYL SUTURE, THE SUB CUTANEOUS LAYER WITH 2-0 VICRYL, AND THE SKIN WITH VELIA. THE WOUNDS WERE WASHED AND THEN STERILE DRESSING WAS APPLIED. PATIENT WAS EXTUBATED AND SENT TO RECOVERY ROOM. Estimated Blood Loss 200 Urine Output 250 Complications No immediate complications Condition stable Disposition PACU
--- NOTE | 2020-12-29 18:58 | PC.NURSE ---
Returned from OR per Bed. Report received from [facility].
[2020-12-29 19:57] LABS: Basophils Absolute Auto 0.1 K/mm3 (0.0-0.1); Basophils Percent Auto 0.4 % (0.2-1.2); Eosinophils Percent Auto 0.1 % (0-4.4); Hematocrit 29.4 % (37.0-47.0); Hemoglobin 9.6 g/dL (12.0-15.0); Immature Granulocyte Absolute 0.21 K/mm3 (0.00-0.031); Immature Granulocyte Percent A 1.3 % (0-0.5); Lymphocytes Absolute Auto 0.63 K/mm3 (0.9-3.2); Mean Corpuscular HGB Conc 32.7 g/dl (32-36); Mean Corpuscular Hemoglobin 32.3 pg (26-34); Monocytes Absolute Auto 0.6 K/mm3 (0.1-0.6); Monocytes Percent Auto 3.8 % (2.6-8.5); Neutrophils Absolute Auto 14.3 K/mm3 (1.3-6.7); Neutrophils Percent Auto 90.4 % (45.5-73.1); Platelet Count Result 311 k/mm3 (150-375); Red Blood Count 2.97 M/mm3 (4.2-5.4); Red Cell Distribution Width 14.2 % (11.5-14.5); White Blood Count 15.8 K/mm3 (4.5-10.0)
[2020-12-29 20:22] LABS: Anion Gap 3 mmol/L (8-16); Blood Urea Nitrogen 11 mg/dL (7-17); Calcium 8.4 mg/dL (8.4-10.2); Carbon Dioxide 27 mmol/L (22-30); Chloride 101 mmol/L (98-107); Estimated CRCL calculation 31 ml/min; Estimated Glomerular Filt Rate > 60; Glucose 155 mg/dL (65-110); Potassium 4.1 mmol/L (3.4-5.0); Sodium 131 mmol/L (137-145)
[2020-12-29] MEDS: HEPARIN SODIUM 5,000 UNITS/ML VIAL 5000 UNITS SUB-Q (22:19)
[2020-12-29] MEDS: ATORVASTATIN 40 MG TABLET PO (22:19)
[2020-12-30] VITALS (9 sets, daily range): BP systolic 90–139; BP diastolic 38–66; PULSE 78–99; RESP 16–18; TEMP 36.2–37.1; O2SAT 92–100; BMI 17.6
[2020-12-30] MEDS: HYDROcodone/acetaminophen (*CRX) 5-325 MG TABLET 1 TAB PO ×2 (01:45→14:35)
[2020-12-30 05:48] LABS: Basophils Percent Auto 0.2 % (0.2-1.2); Hematocrit 25.3 % (37.0-47.0); Hemoglobin 8.4 g/dL (12.0-15.0); Immature Granulocyte Absolute 0.07 K/mm3 (0.00-0.031); Immature Granulocyte Percent A 0.7 % (0-0.5); Lymphocytes Absolute Auto 1.29 K/mm3 (0.9-3.2); Lymphocytes Percent Auto 13.8 % (18.3-44.2); Mean Corpuscular HGB Conc 33.2 g/dl (32-36); Mean Corpuscular Hemoglobin 32.1 pg (26-34); Mean Corpuscular Volume 96.6 fl (80-100); Mean Platelet Volume 9.1 fl (7.4-10.4); Monocytes Absolute Auto 1.2 K/mm3 (0.1-0.6); Neutrophils Absolute Auto 6.8 K/mm3 (1.3-6.7); Neutrophils Percent Auto 72.3 % (45.5-73.1); Platelet Count Result 262 k/mm3 (150-375); Red Blood Count 2.62 M/mm3 (4.2-5.4); Red Cell Distribution Width 14.4 % (11.5-14.5); White Blood Count 9.4 K/mm3 (4.5-10.0)
[2020-12-30 06:06] LABS: Anion Gap 3 mmol/L (8-16); Blood Urea Nitrogen 14 mg/dL (7-17); Calcium 8.4 mg/dL (8.4-10.2); Carbon Dioxide 26 mmol/L (22-30); Chloride 101 mmol/L (98-107); Estimated CRCL calculation 28 ml/min; Estimated Glomerular Filt Rate 60; Glucose 110 mg/dL (65-110); Potassium 4.2 mmol/L (3.4-5.0); Sodium 130 mmol/L (137-145)
--- NOTE | 2020-12-30 07:59 | PM.IMPN ---
Subjective Date/time seen: 12/30/20 08:00 Interval history: Date/Time: 12/27/20 20:34 Narrative: 80-year-old female with a past medical history of coronary artery disease, diastolic congestive heart failure, renal artery stenosis, COPD, chronic kidney disease and dementia who presented to the ER from [facility] after a fall. Patient is only able to provide limited history of she is alert and oriented times 2 at baseline. According to the EMS report patient was in the dining room and had attempted to ambulate without her walker. Her fall was not witnessed. The patient initially denied any pain but did grimace when EMS staff palpated her hip deformity. The patient was able to lift her hips in the lower EMS to slight if she would under her for transfer.At the time of my evaluation the patient could no longer remember falling and did not know why she was in the ER. She thought she was in the ER because her arm was hurting. When I asked her about her hip she stated that she could feel it hurt a little bit. With the patient was still able to shift around on the bed. She is unable to provide any other review of systems as she is only alert oriented x1 at the time of my evaluation. Date/time seen: 12/28/20 10:31 I am okay Date/time seen: 12/29/20 09:39 I am okay date/ time seen: 12/30/20 at 8:00 a.m. patient does not have any complaints today. She denies pain, abdominal pain, nausea, vomiting, sweats, fevers, chills, chest pain, shortness of breath. She was saying something about I need to see if Bibi is awake and she stated that she can see 3 of me. Pupils do seem a dilated however, unsure if review of systems is accurate due to patient's mental status. Objective Data Vital Signs Vital Signs: Vital Signs - 24 hr 12/29/20 08:00 12/29/20 08:32 12/29/20 12:00 Temperature Pulse Rate 66 67 62 Respiratory Rate Blood Pressure Pulse Oximetry 12/29/20 15:40 12/29/20 17:58 12/29/20 18:14 Temperature 37.3 C 36.3 C L Pulse Rate 66 84 77 Respiratory Rate 12 13 Blood Pressure 141/96 H 175/95 H 170/93 H Pulse Oximetry 99 100 100 12/29/20 18:27 12/29/20 18:43 12/29/20 19:00 Temperature 36.4 C L Pulse Rate 74 74 85 Respiratory Rate 12 12 17 Blood Pressure 147/75 H 154/67 H 143/94 H Pulse Oximetry 100 100 100 12/29/20 19:15 12/29/20 19:30 12/29/20 20:00 Temperature 36.8 C 36.1 C L 36.2 C L Pulse Rate 82 87 79 Respiratory Rate 16 17 17 Blood Pressure 153/83 H 153/78 H 137/78 Pulse Oximetry 100 100 100 12/29/20 21:00 12/29/20 23:09 12/30/20 00:00 Temperature 36.8 C Pulse Rate 92 85 78 Respiratory Rate 19 Blood Pressure 113/61 Pulse Oximetry 94 96 12/30/20 03:27 12/30/20 04:00 Temperature 36.2 C L Pulse Rate 99 92 Respiratory Rate 18 Blood Pressure 102/64 Pulse Oximetry 96 Intake/Output Intake/Output: Intake & Output 12/27/20 12/28/20 12/29/20 12/30/20 23:59 23:59 23:59 23:59 Intake Total 570 788 400 Output Total 450 1050 150 Balance 120 -262 250 Meds/Results Medications: Active Medications Generic Name Dose Route Start Last Admin Trade Name Freq PRN Reason Stop Dose Admin Acetaminophen 500 mg 12/29/20 18:49 Acetaminophen 500 Mg Tablet PO DAILY PRN Pain 1-3 Hydrocodone Bitart/Acetaminophen 1 tab 12/29/20 18:49 12/30/20 01:45 Hydrocodone/Acetaminophen (*Crx) 5-325 Mg Tablet PO 1 tab Q3H PRN Administration Pain Rated 4-6 Al Hydrox/Mg Hydrox/Simethicone 30 ml 12/29/20 18:49 Mag Hydrox/Al Hydrox/Simeth 30 Ml Udc PO Q6H PRN Indigestion Aspirin 81 mg 12/30/20 09:00 Aspirin 81 Mg Enteric Tablet PO DAILY STEPH Atorvastatin Calcium 40 mg 12/29/20 21:00 12/29/20 22:19 Atorvastatin 40 Mg Tablet PO 40 mg HS STEPH Administration Diazepam 5 mg 12/29/20 18:49 Diazepam (*Crx) 5 Mg Tablet PO Q8H PRN Muscle Spasm Heparin Sodium (Porcine) 5,000 units
[2020-12-30] MEDS: ACETAMINOPHEN 500 MG TABLET PO (08:53)
[2020-12-30] MEDS: ASPIRIN 81 MG ENTERIC TABLET PO (08:54)
[2020-12-30] MEDS: PANTOPRAZOLE 40 MG TABLET PO ×2 (08:54→21:51)
[2020-12-30] MEDS: SENNA/DOCUSATE SODIUM TABLET 2 TAB PO ×2 (08:54→16:07)
[2020-12-30] MEDS: polyethylene glycoL 3350 17 GM POWD.PACK PO (08:56)
[2020-12-30] MEDS: HEPARIN SODIUM 5,000 UNITS/ML VIAL 5000 UNITS SUB-Q ×2 (08:56→21:51)
--- NOTE | 2020-12-30 10:00 | PM.PNORT ---
Progress Note: A&P Assessment and Plan (1) Closed right hip fracture: Qualifiers: Encounter type: subsequent encounter Fracture healing: with routine healing Qualified Code(s): S72.001D - Fracture of unspecified part of neck of right femur, subsequent encounter for closed fracture with routine healing Code(s): S72.001A - Fracture of unspecified part of neck of right femur, initial encounter for closed fracture Status: Acute Assessment and Plan: POD #1: INSERTION LONG GAMMA EDITA RIGHT FEMUR HIP PT/OT. NWB RLE. HIGH FALL RISK. Pain control. Ice lateral hip. Dressing to be changed today, nursing notified. Heparin SQ for DVT prophylaxis per Dr. Santacruz. SCDs. Incentive spirometry- patient will require assistance/reminders. Dispo: SNF when medically stable. Orthopedic follow up arranged. Subjective Subjective Date/Time Seen: 12/30/20 10:00 Post Op day: 1 Interval history: POD #1: INSERTION LONG GAMMA EDITA RIGHT FEMUR HIP Complains of soreness right lateral hip. Up in chair. No other concerns. Review of Systems Constitutional: Constitutional: Denies chills, Reports fatigue and Denies night sweats Cardiovascular: Cardiovascular: Denies chest pain and Denies lightheadedness Respiratory: Respiratory: Denies cough and Denies dyspnea Gastrointestinal: Gastrointestinal: Denies abdominal pain Musculoskeletal: Musculoskeletal: Reports as per HPI Exam Const: General: comfortable and no acute distress Resp: Effort & Inspection: normal respiratory effort GI: Inspection: non-distended GI Palp: Yes Soft to palpation and No Firmness to palpation present (GI) Urinary Catheter: Urinary Catheter: patent and draining and urine dark Skin: General skin exam: normal color Wounds: wounds noted (incision right lateral hip ) Neuro: Speech: normal speech Motor exam (neuro): strength not 5/5 throughout and Abnormal motor strength present (decreased b/l LE ) Other: dementia at baseline Extrem: Right lower extremity: hip/thigh Details: tenderness Location: of the hip Location: laterally, swelling Location: at the hip, abnormal ROM (limited due to recent surgical intervention ) Details: pain with active ROM during Details: to internal rotation and to external rotation and ecchymosis (mild lateral hip ); no crepitus, no deformity and no unusual warmth, knee Details: normal to inspection and normal ROM; no tenderness and no swelling, lower leg (Negative Eleanor's Sign ), ankle (+ankle dorsiflexion/plantarflexion ) and foot (Palpable pedal pulses, moves toes, sensation intact ) Details: normal capillary refill Objective Data Vital Signs Vital Signs: Vital Signs - 24 hr 12/29/20 12:00 12/29/20 15:40 12/29/20 17:58 Temperature 37.3 C 36.3 C L Pulse Rate 62 66 84 Respiratory Rate 12 Blood Pressure 141/96 H 175/95 H Pulse Oximetry 99 100 12/29/20 18:14 12/29/20 18:27 12/29/20 18:43 Temperature Pulse Rate 77 74 74 Respiratory Rate 13 12 12 Blood Pressure 170/93 H 147/75 H 154/67 H Pulse Oximetry 100 100 100 12/29/20 19:00 12/29/20 19:15 12/29/20 19:30 Temperature 36.4 C L 36.8 C 36.1 C L Pulse Rate 85 82 87 Respiratory Rate 17 16 17 Blood Pressure 143/94 H 153/83 H 153/78 H Pulse Oximetry 100 100 100 12/29/20 20:00 12/29/20 21:00 12/29/20 23:09 Temperature 36.2 C L 36.8 C Pulse Rate 79 92 85 Respiratory Rate 17 19 Blood Pressure 137/78 113/61 Pulse Oximetry 100 94 96 12/30/20 00:00 12/30/20 03:27 12/30/20 04:00 Temperature 36.2 C L Pulse Rate 78 99 92 Respiratory Rate 18 Blood Pressure 102/64 Pulse Oximetry 96 12/30/20 08:00 Temperature Pulse Rate 81 Respiratory Rate Blood Pressure Pulse Oximetry Intake/Output Intake/Output: Intake & Output 12/27/20 12/28/20 12/29/20 12/30/20 23:59 23:59 23:59 23:59 Intake Total 570 788 450 Output Total 450 1050 150 Balance 120 -262 300 Meds/Results Medications: Active Medications Generi
--- NOTE | 2020-12-30 14:03 | PM.IMPN ---
Progress Note: A&P Assessment and Plan (1) Closed right hip fracture: Code(s): S72.001A - Fracture of unspecified part of neck of right femur, initial encounter for closed fracture Status: Acute Assessment and Plan: The patient is a 80-year-old female with a past medical history of coronary artery disease, diastolic congestive heart failure, renal artery stenosis, COPD, chronic kidney disease and dementia who presented to the ER from [facility] after a fall. According to the EMS report patient was in the dining room and had attempted to ambulate without her walker. Her fall was not witnessed. Initial vitals showed elevated blood pressure 162/83, normal heart rate at 60 beats per minute, afebrile, normal oxygenation on room air. Initial labs showed normal CBC with differential other than normocytic anemia with a hemoglobin 10, hematocrit 32%. Normal coag panel. Slight hyponatremia at 135. Normal renal function. Elevated LFTs with an AST of 69, ALT 48, alk-phos 145. Hip pelvis x-ray showed Acute comminuted right hip intertrochanteric/subtrochanteric fracture. CXR showed Cardiomegaly. Hyperinflation. CT Head showed No acute intracranial findings. Chronic age related findings. Patient was admitted to the hospital for further evaluation workup by Orthopedic surgery. Patient had INSERTION LONG GAMMA EDITA RIGHT FEMUR HIP on 12/29/[address] Ruvalcaba POD #1 and doing well. Continue PT/OT Orthopedic recommends nonweightbearing to right lower leg. Patient is a high fall risk. Continue pain control. I still lateral hip. Dressing changes daily. DVT prophylaxis with subcu heparin per Dr. Santacruz and SCDs. Working on discharge planning with care coordination and ortho recommends SNF placement once stable. Continue monitoring (2) CAD (coronary artery disease): Qualifiers: Coronary Disease-Associated Artery/Lesion type: [place] artery [place] vs. transplanted heart: [place] heart Associated angina: with stable angina Qualified Code(s): I25.118 - Atherosclerotic heart disease of [place] coronary artery with other forms of angina pectoris Code(s): I25.10 - Atherosclerotic heart disease of [place] coronary artery without angina pectoris Status: Chronic Assessment and Plan: Patient with left heart catheterization on in December of 2019, currently EKG with no acute changes. Patient hemodynamically stable. Recent echocardiogram with ejection fraction in the 50%. Chest pain-free, stable. Continue ASA 81 mg, atorvastatin and Coreg. (3) Transaminitis: Code(s): R74.01 - Elevation of levels of liver transaminase levels Status: Acute Assessment and Plan: Patient had normal LFTs 1 year ago. Labs checked 2 weeks ago showed elevated LFTs which is stable to where it is currently. Mild transaminitis with no evidence of biliary obstruction. Will order hepatic testing and right upper quadrant ultrasound. (4) Dementia: Code(s): F03.90 - Unspecified dementia without behavioral disturbance Status: Acute Assessment and Plan: Appears to be at her baseline per family. Time Spent With Patient Time with patient: 25 - 35 minutes Subjective Date/time seen: 12/30/20 14:03 Interval history: Date of service 12/30/2020: The patient is alert and oriented to self only. Currently she is resting in bed, watching TV in no acute distress. She denies any pain at this time. Denies fevers, chills, chest pain, shortness breath, cough, nausea, vomiting, abdominal pain, leg swelling, calf pain, hip pain, or any other symptoms at this time. Review of Systems Review of Systems: All systems reviewed & are unremarkable except as noted in HPI and below Exam Narrative: General: 80-y
[2020-12-30] MEDS: ATORVASTATIN 40 MG TABLET PO (21:51)
[2020-12-31 00:06] VITALS: BP 119/57; PULSE 77; RESP 14; TEMP 36.9; O2SAT 98
[2020-12-31] MEDS: HYDROcodone/acetaminophen (*CRX) 5-325 MG TABLET 1 TAB PO (03:00)
[2020-12-31 04:53] VITALS: BP 116/52; PULSE 87; RESP 18; TEMP 36.5; O2SAT 97
[2020-12-31 05:44] LABS: Hematocrit 22.6 % (37.0-47.0); Hemoglobin 7.6 g/dL (12.0-15.0); Mean Corpuscular HGB Conc 33.6 g/dl (32-36); Mean Corpuscular Hemoglobin 32.1 pg (26-34); Mean Corpuscular Volume 95.4 fl (80-100); Mean Platelet Volume 8.9 fl (7.4-10.4); Platelet Count Result 217 k/mm3 (150-375); Red Blood Count 2.37 M/mm3 (4.2-5.4); Red Cell Distribution Width 14.1 % (11.5-14.5); White Blood Count 7.6 K/mm3 (4.5-10.0)
[2020-12-31 05:57] LABS: Alanine Aminotransferase 18 U/L (4-35); Albumin Level 2.5 g/dL (3.5-5.1); Alkaline Phosphatase 85 U/L (38-126); Anion Gap 3 mmol/L (8-16); Aspartate Amino Transferase 38 U/L (14-36); Bilirubin,Total 0.9 mg/dL (0.2-1.3); Blood Urea Nitrogen 16 mg/dL (7-17); Calcium 8.3 mg/dL (8.4-10.2); Carbon Dioxide 29 mmol/L (22-30); Chloride 100 mmol/L (98-107); Estimated CRCL calculation 28 ml/min; Estimated Glomerular Filt Rate 60; Glucose 94 mg/dL (65-110); Potassium 3.6 mmol/L (3.4-5.0); Sodium 132 mmol/L (137-145)
[2020-12-31 06:49] LABS: Hepatitis B Surface Antigen Negative (Negative)
[2020-12-31 06:54] LABS: HAV RESULT Negative (Negative); Hepatitis B Core IgM Result Negative (Negative)
[2020-12-31 07:06] LABS: Hepatitis C Virus Antibody Negative (Negative)
[2020-12-31 08:08] LABS: Iron 28 ug/dL (37-170)
[2020-12-31 08:17] LABS: Transferrin 107 mg/dL (206-381)
[2020-12-31 08:19] LABS: Percent Iron Saturation 17 % (20-50)
[2020-12-31 09:16] LABS: Folic Acid 2.7 ng/mL (2.76->20)
[2020-12-31] MEDS: ACETAMINOPHEN 500 MG TABLET PO (11:57)
[2020-12-31] MEDS: SENNA/DOCUSATE SODIUM TABLET 2 TAB PO ×2 (11:58→17:05)
[2020-12-31] MEDS: PANTOPRAZOLE SODIUM IV 40 MG VIAL IV PUSH ×2 (11:58→20:31)
[2020-12-31] MEDS: polyethylene glycoL 3350 17 GM POWD.PACK PO (11:59)
[2020-12-31 12:00] VITALS: BP 136/63; PULSE 76; RESP 95; TEMP 36.7; O2SAT 95
[2020-12-31 12:16] LABS: Hemoglobin 8.2 g/dL (12.0-15.0)
--- NOTE | 2020-12-31 12:20 | PM.IMPN ---
Progress Note: A&P Assessment and Plan (1) Closed right hip fracture: Code(s): S72.001A - Fracture of unspecified part of neck of right femur, initial encounter for closed fracture Status: Acute Assessment and Plan: The patient is a 80-year-old female with a past medical history of coronary artery disease, diastolic congestive heart failure, renal artery stenosis, COPD, chronic kidney disease and dementia who presented to the ER from [facility] after a fall. According to the EMS report patient was in the dining room and had attempted to ambulate without her walker. Her fall was not witnessed. Initial vitals showed elevated blood pressure 162/83, normal heart rate at 60 beats per minute, afebrile, normal oxygenation on room air. Initial labs showed normal CBC with differential other than normocytic anemia with a hemoglobin 10, hematocrit 32%. Normal coag panel. Slight hyponatremia at 135. Normal renal function. Elevated LFTs with an AST of 69, ALT 48, alk-phos 145. Hip pelvis x-ray showed Acute comminuted right hip intertrochanteric/subtrochanteric fracture. CXR showed Cardiomegaly. Hyperinflation. CT Head showed No acute intracranial findings. Chronic age related findings. Patient was admitted to the hospital for further evaluation workup by Orthopedic surgery. Patient had INSERTION LONG GAMMA EDITA RIGHT FEMUR HIP on 12/29/[address] Ruvalcaba POD #1 and doing well. Continue PT/OT Orthopedic recommends nonweightbearing to right lower leg. Patient is a high fall risk. Continue pain control. I still lateral hip. Dressing changes daily. DVT prophylaxis with subcu heparin per Dr. Santacruz and SCDs. Working on discharge planning with care coordination and ortho recommends SNF placement once stable. Continue monitoring (2) Transaminitis: Code(s): R74.01 - Elevation of levels of liver transaminase levels Status: Acute Assessment and Plan: Patient had normal LFTs 1 year ago. Labs checked 2 weeks ago showed elevated LFTs which is stable to where it is currently. Mild transaminitis with no evidence of biliary obstruction. LFTs are trending down and ALT is normal, AST still slightly elevated at 38. Hepatitis panel normal Right upper quadrant ultrasound -Distended gallbladder with gallstones and positive sonographic Tran sign, but no gallbladder wall thickening. These findings are indeterminate for acute cholecystitis. If there is clinical concern for acute cholecystitis, consider hepatobiliary scintigraphy. Cirrhosis of the liver. I re-examined the patient a 2nd time. She has no abdominal pain, no tenderness on examination, it has hurt lunch in front of her beginning to eat without any nausea or vomiting. White count is completely normal without any fevers or chills. I do not feel she has acute cholecystitis at this time. Will recheck labs in LFTs in the morning. (3) Iron deficiency anemia: Code(s): D50.9 - Iron deficiency anemia, unspecified Status: Acute Assessment and Plan: Patient's baseline hemoglobin ranges between 10-11 over the last few months. After her surgery her blood count slowly trended down and this morning her hemoglobin was 7.6. Iron panel was drawn which shows iron deficiency anemia with a % saturation of 17 and elevated ferritin. Also patient has folic acid deficiency. No signs of acute bleeding to her postsurgical right hip. Will check a stool occult blood IV pantoprazole 40 mg q.12 in case of a GI source Continue monitoring H&H every 6 hours. Hemoglobin drops less than 7 she will need a blood transfusion. No source of bleeding found at this time. (4) Folic acid deficiency: Code(s): E53.8 - Deficiency of other specified B group vitamins Status: Acute Assessment and Plan:
--- NOTE | 2020-12-31 12:53 | PM.PNORT ---
Progress Note: A&P Additional Plan POD 2 DOING WELL S/P RIGHT SUBTROCH FRACTURE WITH IM RODDING. SHE WILL REQUIRE SNF PLACEMENT ONCE SHE IS STABLE PER MEDICINE. PATIENT WILL F/U IN ORTHOPEDICS IN 8 WEEKS. Subjective Subjective Date/Time Seen: 12/31/20 12:53 POD 2 DOING WELL. PAIN CONTROLLED. NO CALF PAIN Exam Extrem: Other: VSS AFEBRILE DRESSING DRY NV INTACT NEG HOMANS SIGN, CALF SOFT NON TENDER Objective Data Vital Signs Vital Signs: Vital Signs - 24 hr 12/30/20 14:15 12/30/20 18:30 12/30/20 21:14 Temperature 36.9 C 36.6 C 37.1 C Pulse Rate 82 86 85 Respiratory Rate 16 16 18 Blood Pressure 90/38 L 139/55 L 124/60 Pulse Oximetry 100 100 100 12/30/20 23:37 12/31/20 00:06 12/31/20 04:53 Temperature 36.9 C 36.5 C Pulse Rate 77 87 Respiratory Rate 14 18 Blood Pressure 119/57 L 116/52 L Pulse Oximetry 92 98 97 Intake/Output Intake/Output: Intake & Output 12/28/20 12/29/20 12/30/20 12/31/20 23:59 23:59 23:59 23:59 Intake Total 570 788 840 300 Output Total 450 1050 250 450 Balance 120 -262 590 -150 Meds/Results Medications: Active Medications Generic Name Dose Route Start Last Admin Trade Name Freq PRN Reason Stop Dose Admin Acetaminophen 500 mg 12/29/20 18:49 12/31/20 11:57 Acetaminophen 500 Mg Tablet PO 500 mg DAILY PRN Administration Pain 1-3 Hydrocodone Bitart/Acetaminophen 1 tab 12/29/20 18:49 12/31/20 03:00 Hydrocodone/Acetaminophen (*Crx) 5-325 Mg Tablet PO 1 tab Q3H PRN Administration Pain Rated 4-6 Al Hydrox/Mg Hydrox/Simethicone 30 ml 12/29/20 18:49 Mag Hydrox/Al Hydrox/Simeth 30 Ml Udc PO Q6H PRN Indigestion Aspirin 81 mg 12/30/20 09:00 12/30/20 08:54 Aspirin 81 Mg Enteric Tablet PO 81 mg DAILY STEPH Administration Atorvastatin Calcium 40 mg 12/29/20 21:00 12/30/20 21:51 Atorvastatin 40 Mg Tablet PO 40 mg HS STEPH Administration Cyanocobalamin 1,000 mcg 12/31/20 12:40 Cyanocobalamin Inj 1,000 Mcg/Ml Vial IM 01/02/21 09:01 DAILY [facility] Cyanocobalamin 1,000 mcg 01/03/21 09:00 Cyanocobalamin 1,000 Mcg Tablet PO QAM STEPH Diazepam 5 mg 12/29/20 18:49 Diazepam (*Crx) 5 Mg Tablet PO Q8H PRN Muscle Spasm Ferrous Sulfate 324 mg 12/31/20 17:00 Ferrous Sulfate 324 Mg Tablet PO BIDWM [facility] Folic Acid 1 mg 12/31/20 12:25 Folic Acid 1 Mg Tablet PO DAILY [facility] Heparin Sodium (Porcine) 5,000 units 12/29/20 21:00 12/30/20 21:51 Heparin Sodium 5,000 Units/Ml Vial SUB-Q 5,000 units Q12HR STEPH Administration Hydroxyzine Pamoate 50 mg 12/29/20 18:49 Hydroxyzine Pamoate 25 Mg Capsule PO Q4H PRN Itching Morphine Sulfate 2 mg 12/29/20 18:49 Morphine Sulfate (*Crx) 2 Mg/Ml Inj IV PUSH Q3H PRN Pain Rated 7-10 Naloxone HCl 0.1 mg 12/29/20 18:49 Naloxone Hcl 0.4 Mg/Ml Vial IV PUSH Q2M PRN Opiate Reversal Ondansetron HCl 4 mg 12/29/20 18:49 Ondansetron Inj 4 Mg/2 Ml Vial IV PUSH Q4H PRN Nausea And Vomiting Pantoprazole Sodium 40 mg 12/31/20 09:00 12/31/20 11:58 Pantoprazole Sodium Iv 40 Mg Vial IV PUSH 40 mg Q12HR [facility] Administration Polyethylene Glycol 17 gm 12/30/20 09:00 12/31/20 11:59 Polyethylene Glycol 3350 17 Gm Powd.Pack PO 17 gm QAM [facility] Administration Senna/Docusate Sodium 2 tab 12/30/20 09:00 12/31/20 11:58 Senna/Docusate Sodium Tablet PO 2 tab BID STEPH Administration Radiology Results: ITS Impressions Hip/Pelvis X-Ray 12/27/20 17:47 IMPRESSION: Acute comminuted right hip intertrochanteric/subtrochanteric fracture. Chest X-Ray 12/27/20 17:49 IMPRESSION: 1. Cardiomegaly. 2. Hyperinflation. Head CT 12/27/20 20:39 IMPRESSION: 1. No acute intracranial findings. 2. Chronic age related findings. Intraoperative X-Ray 12/29/20 19:32 Impression: 1: Near-anatomic alignment of right femoral intertrochanteric fractu
--- NOTE | 2020-12-31 13:20 | PCNWS ---
Weekly nutritional screen. Patient is tolerating current diet with adequate intake. No weight loss reported. No nutritional needs at this time.
[2020-12-31] MEDS: FOLIC ACID 1 MG TABLET PO (14:35)
[2020-12-31] MEDS: CYANOCOBALAMIN INJ 1,000 MCG/ML VIAL 1000 MCG IM (14:36)
[2020-12-31] MEDS: FERROUS SULFATE 324 MG TABLET PO (17:05)
[2020-12-31 18:29] LABS: Hematocrit 22.9 % (37.0-47.0); Hemoglobin 7.4 g/dL (12.0-15.0)
[2020-12-31] MEDS: ATORVASTATIN 40 MG TABLET PO (20:32)
[2020-12-31 20:50] VITALS: BP 114/59; PULSE 83; RESP 14; TEMP 36.9; O2SAT 98
[2021-01-01] VITALS (11 sets, daily range): BP systolic 122–159; BP diastolic 63–83; PULSE 70–89; RESP 14–18; TEMP 36.4–37.2; O2SAT 93–100
[2021-01-01 00:37] LABS: Hematocrit 22.6 % (37.0-47.0); Hemoglobin 7.4 g/dL (12.0-15.0)
[2021-01-01 01:47] LABS: IFOB Positive Control Positive; Immunochemical Fecal Occult Bl Negative (N)
[2021-01-01 06:00] LABS: Hematocrit 21.7 % (37.0-47.0); Hemoglobin 7.2 g/dL (12.0-15.0); Mean Corpuscular HGB Conc 33.2 g/dl (32-36); Mean Corpuscular Hemoglobin 31.4 pg (26-34); Mean Corpuscular Volume 94.8 fl (80-100); Mean Platelet Volume 9.3 fl (7.4-10.4); Platelet Count Result 232 k/mm3 (150-375); Red Blood Count 2.29 M/mm3 (4.2-5.4); Red Cell Distribution Width 14.2 % (11.5-14.5)
[2021-01-01 06:11] LABS: Alanine Aminotransferase 15 U/L (4-35); Albumin Level 2.4 g/dL (3.5-5.1); Alkaline Phosphatase 99 U/L (38-126); Anion Gap 2 mmol/L (8-16); Aspartate Amino Transferase 37 U/L (14-36); Bilirubin,Total 1.1 mg/dL (0.2-1.3); Blood Urea Nitrogen 16 mg/dL (7-17); Calcium 8.1 mg/dL (8.4-10.2); Carbon Dioxide 29 mmol/L (22-30); Chloride 101 mmol/L (98-107); Estimated CRCL calculation 31 ml/min; Estimated Glomerular Filt Rate > 60; Glucose 98 mg/dL (65-110); Magnesium 1.9 mg/dL (1.6-2.3); Potassium 3.6 mmol/L (3.4-5.0); Sodium 132 mmol/L (137-145)
[2021-01-01] MEDS: FERROUS SULFATE 324 MG TABLET PO ×2 (09:29→17:46)
[2021-01-01] MEDS: FOLIC ACID 1 MG TABLET PO (09:29)
[2021-01-01] MEDS: SENNA/DOCUSATE SODIUM TABLET 2 TAB PO ×2 (09:29→17:46)
[2021-01-01] MEDS: CYANOCOBALAMIN INJ 1,000 MCG/ML VIAL 1000 MCG IM (09:32)
[2021-01-01] MEDS: polyethylene glycoL 3350 17 GM POWD.PACK PO (09:32)
[2021-01-01] MEDS: HEPARIN SODIUM 5,000 UNITS/ML VIAL 5000 UNITS SUB-Q ×2 (09:33→22:34)
[2021-01-01] MEDS: SODIUM CHLORIDE 0.9% IV 250 ML 30 ML IV CONT (09:33)
--- NOTE | 2021-01-01 09:46 | PM.IMPN ---
Progress Note: A&P Assessment and Plan (1) Closed right hip fracture: Code(s): S72.001A - Fracture of unspecified part of neck of right femur, initial encounter for closed fracture Status: Acute Assessment and Plan: The patient is a 80-year-old female with a past medical history of coronary artery disease, diastolic congestive heart failure, renal artery stenosis, COPD, chronic kidney disease and dementia who presented to the ER from [facility] after a fall. According to the EMS report patient was in the dining room and had attempted to ambulate without her walker. Her fall was not witnessed. Initial vitals showed elevated blood pressure 162/83, normal heart rate at 60 beats per minute, afebrile, normal oxygenation on room air. Initial labs showed normal CBC with differential other than normocytic anemia with a hemoglobin 10, hematocrit 32%. Normal coag panel. Slight hyponatremia at 135. Normal renal function. Elevated LFTs with an AST of 69, ALT 48, alk-phos 145. Hip pelvis x-ray showed Acute comminuted right hip intertrochanteric/subtrochanteric fracture. CXR showed Cardiomegaly. Hyperinflation. CT Head showed No acute intracranial findings. Chronic age related findings. Patient was admitted to the hospital for further evaluation workup by Orthopedic surgery. Patient had INSERTION LONG GAMMA EDITA RIGHT FEMUR HIP on 12/29/[address] Ruvalcaba POD #3 and doing well. Continue PT/OT Orthopedic recommends nonweightbearing to right lower leg. Patient is a high fall risk. Continue pain control. Dressing changes daily. DVT prophylaxis with subcu heparin per Dr. Santacruz and SCDs. Working on discharge planning with care coordination and ortho recommends SNF placement once stable. Continue monitoring (2) Iron deficiency anemia: Code(s): D50.9 - Iron deficiency anemia, unspecified Status: Acute Assessment and Plan: Patient's baseline hemoglobin ranges between 10-11 over the last few months. After her surgery her blood count slowly trended down and this morning her hemoglobin was 7.2 with symptoms of weakness/fatigue. Will give 1 Unit of PRBCs. Iron panel was drawn which shows iron deficiency anemia with a % saturation of 17 and elevated ferritin. Also patient has Vitamin B12 and folic acid deficiency. Also, patients liver US showing signs of Cirrhosis. No signs of acute bleeding to her postsurgical right hip. Stool occult blood was negative. Will restart SubQ Heparin for DVT prophylaxis since no signs of bleeding. Continue IV pantoprazole 40 mg q.12 Acute anemia secondary to B12, folic acid, iron deficiency and liver cirrhosis and recent fracture and surgery. Continue monitoring H&H every 6 hours. Hemoglobin drops less than 7 she will need a blood transfusion. No active bleeding found at this time. (3) Folic acid deficiency: Code(s): E53.8 - Deficiency of other specified B group vitamins Status: Acute Assessment and Plan: Continue 1 mg daily and have her recheck labs with her primary care provider after discharge. (4) Vitamin B12 deficiency: Code(s): E53.8 - Deficiency of other specified B group vitamins Status: Acute Assessment and Plan: Patient found to be deficient in vitamin B12. Will give 3 doses of IM B12, then switched to oral 1000 mg daily and have her follow-up with her doctor after discharge. (5) CAD (coronary artery disease): Qualifiers: Coronary Disease-Associated Artery/Lesion type: [place] artery [place] vs. transplanted heart: [place] heart Associated angina: with stable angina Qualified Code(s): I25.118 - Atherosclerotic heart disease of [place] coronary artery with other forms of angina pectoris Code(s): I25.10
[2021-01-01] MEDS: PANTOPRAZOLE SODIUM IV 40 MG VIAL IV PUSH (10:35)
[2021-01-01 11:56] LABS: Hematocrit 22.2 % (37.0-47.0); Hemoglobin 7.3 g/dL (12.0-15.0)
[2021-01-01 17:01] LABS: Hematocrit 28.9 % (37.0-47.0); Hemoglobin 9.9 g/dL (12.0-15.0)
[2021-01-01] MEDS: HYDROcodone/acetaminophen (*CRX) 5-325 MG TABLET 1 TAB PO (20:28)
[2021-01-01] MEDS: PANTOPRAZOLE 40 MG TABLET PO (22:34)
[2021-01-01] MEDS: ATORVASTATIN 40 MG TABLET PO (22:34)
--- NOTE | 2021-01-02 | PC.NURSE ---
Susan Henry notified pt has been making frequent comments about wanting to and has been stating that staff should just kill her . Pt will deny wanting or planning to when questioned further. Pt is alert to self only. Pt will be monitored for further suicidal ideation but is currently deemed low risk.
[2021-01-02 00:20] LABS: Hematocrit 27.7 % (37.0-47.0); Hemoglobin 9.4 g/dL (12.0-15.0)
[2021-01-02 00:50] VITALS: BP 121/54; PULSE 79; RESP 20; TEMP 36.6; O2SAT 98
[2021-01-02 05:56] LABS: Hematocrit 28.5 % (37.0-47.0); Hemoglobin 9.5 g/dL (12.0-15.0); Mean Corpuscular HGB Conc 33.3 g/dl (32-36); Mean Corpuscular Hemoglobin 30.9 pg (26-34); Mean Corpuscular Volume 92.8 fl (80-100); Mean Platelet Volume 9.5 fl (7.4-10.4); Platelet Count Result 234 k/mm3 (150-375); Red Blood Count 3.07 M/mm3 (4.2-5.4); Red Cell Distribution Width 16.2 % (11.5-14.5); White Blood Count 6.2 K/mm3 (4.5-10.0)
[2021-01-02 05:59] VITALS: BP 135/76; PULSE 77; RESP 18; TEMP 36.4; O2SAT 100
[2021-01-02 06:07] LABS: Alanine Aminotransferase 13 U/L (4-35); Albumin Level 2.4 g/dL (3.5-5.1); Alkaline Phosphatase 91 U/L (38-126); Anion Gap 4 mmol/L (8-16); Aspartate Amino Transferase 31 U/L (14-36); Bilirubin,Total 1.6 mg/dL (0.2-1.3); Blood Urea Nitrogen 14 mg/dL (7-17); Calcium 8.1 mg/dL (8.4-10.2); Carbon Dioxide 31 mmol/L (22-30); Chloride 101 mmol/L (98-107); Estimated CRCL calculation 28 ml/min; Estimated Glomerular Filt Rate 60; Glucose 95 mg/dL (65-110); Potassium 3.6 mmol/L (3.4-5.0); Sodium 136 mmol/L (137-145)
--- NOTE | 2021-01-02 07:51 | PC.NURSE ---
to CT via bed
--- NOTE | 2021-01-02 09:05 | PC.NURSE ---
call to pharmacy for missing vit b inj dose
[2021-01-02] MEDS: PANTOPRAZOLE 40 MG TABLET PO (09:30)
[2021-01-02] MEDS: FERROUS SULFATE 324 MG TABLET PO (09:30)
[2021-01-02] MEDS: FOLIC ACID 1 MG TABLET PO (09:30)
[2021-01-02] MEDS: SENNA/DOCUSATE SODIUM TABLET 2 TAB PO (09:30)
[2021-01-02] MEDS: HEPARIN SODIUM 5,000 UNITS/ML VIAL 5000 UNITS SUB-Q (09:30)
[2021-01-02] MEDS: ACETAMINOPHEN 500 MG TABLET PO (09:34)
[2021-01-02 12:12] LABS: Hematocrit 30.1 % (37.0-47.0); Hemoglobin 10.1 g/dL (12.0-15.0)
[2021-01-02] MEDS: CYANOCOBALAMIN INJ 1,000 MCG/ML VIAL 1000 MCG IM (13:05)
--- NOTE | 2021-01-02 13:06 | P.CDI_ITS ---
CDI Query Clarification Request -12/27 H&H 10.7/32.6 01/01 H&H 7.2/21.7 -Pt with right subtrochanteric fracture and EBL during OR was 200cc -One unit of blood transfused - Acute anemia secondary to B12, folic acid, iron deficiency and liver cirrhosis and recent fracture and surgery has been documented Please further clarify acute anemia secondary to recent fracture and surgery. * Acute blood loss * Chronic blood loss * Acute on chronic blood loss * Other * Unable to determine
--- NOTE | 2021-01-02 13:37 | PM.DS ---
DS: Admitting Diagnosis Discharge Date 01/02/21 Admitting Diagnosis Hip pain DS: Discharge Diagnosis Discharge Diagnosis (1) Closed right hip fracture: Code(s): S72.001A - Fracture of unspecified part of neck of right femur, initial encounter for closed fracture Status: Acute Assessment and Plan: The patient is a 80-year-old female with a past medical history of coronary artery disease, diastolic congestive heart failure, renal artery stenosis, COPD, chronic kidney disease and dementia who presented to the ER from [facility] after a fall. According to the EMS report patient was in the dining room and had attempted to ambulate without her walker. Her fall was not witnessed. Initial vitals showed elevated blood pressure 162/83, normal heart rate at 60 beats per minute, afebrile, normal oxygenation on room air. Initial labs showed normal CBC with differential other than normocytic anemia with a hemoglobin 10, hematocrit 32%. Normal coag panel. Slight hyponatremia at 135. Normal renal function. Elevated LFTs with an AST of 69, ALT 48, alk-phos 145. Hip pelvis x-ray showed Acute comminuted right hip intertrochanteric/subtrochanteric fracture. CXR showed Cardiomegaly. Hyperinflation. CT Head showed No acute intracranial findings. Chronic age related findings. Patient was admitted to the hospital for further evaluation workup by Orthopedic surgery. Patient had INSERTION LONG GAMMA EDITA RIGHT FEMUR HIP on 12/29/[address] Ruvalcaba POD #3 and doing well from surgical standpoint. Orthopedic recommends nonweightbearing to right lower leg. Patient is a high fall risk. Continue pain control. Dressing changes daily. DVT prophylaxis with subcu heparin per Dr. Santacruz for 28 days. She was accepted to SNF at [facility] and stable for discharge there today. Talked to the patients daughter about all findings and plan. Follow up with PCP in 1 week. Return to ER warnings given. All questions answered. (2) Iron deficiency anemia: Code(s): D50.9 - Iron deficiency anemia, unspecified Status: Acute Assessment and Plan: Acute blood loss anemia. Patient's baseline hemoglobin ranges between 10-11 over the last few months. Stool occult blood was negative. After her surgery her blood count slowly trended down and this morning her hemoglobin was 7.2 with symptoms of weakness/fatigue. She was given 1 Unit of PRBCs 01/01/21 with improvement of her H&H to 10/30%. I believe acute anemia was from surgical blood loss, femur fracture, B12, folic acid, iron deficiency and liver cirrhosis, etc. Currently stable at this time. Continue supplementation Recheck labs in 1 week. Follow up with PCP with lab results Talked with Dr. Ruvalcaba who agreed with continuing SubQ Heparin for DVT prophylaxis for 28 days Will continue PPI 40 mg daily. Patient had reported right thigh pain yesterday so a CT of her femur was completed which showed a small hematoma 5 x 2.1 x 4.9 cm at the operative bed along the side of the right greater trochanter. Also showed findings of fluid density and postop gas throughout soft tissue and displaced bone marrow fat which after talking with the radiologist states these are normal postoperative findings on CT imaging. Otherwise the patient is neurovascularly intact to her right leg with only minimal tenderness to palpation today. No signs of ecchymosis and bleeding. Only a very small hematoma postop so we will continue her subQ heparin after talking with Dr. Santacruz about the CT findings. (3) Folic acid deficiency: Code(s): E53.8 - Deficiency of other specified B group vitamins Status: Acute Assessment and Plan: Continue 1 mg daily and have her recheck labs with her primary care provider after discharge. (4) Vitam
[2021-01-02] MEDS: ASPIRIN 81 MG ENTERIC TABLET PO (14:14)
[2021-01-02 14:39] LABS: EDCOVIDSCREEN Negative (Negative)
--- NOTE | 2021-01-02 15:59 | PC.NURSE ---
ambulance here to get pt, daughter Taty called and updated that pt is being discharged today, reviewed plan of care
== END 2021-01-02 16:30 | DRG 481 ==
LOC: ANHED 21:02 → ANH2MED 22:37
PROVIDERS: Internal Medicine; Orthopaedic Surgery; Admitting Provider Internal Medicine; Emergency Provider Emergency Medicine; PCP Emergency Medicine; Visit Provider Physician Assistant
PROC: 0QS636Z Reposition Right Upper Femur with Intramedullary Internal Fixation Device, Percutaneous Approach (ICD-10-PCS; CPT 27245; principal; 2020-12-29 15:00)
DX: S72.21XA Displaced subtrochanteric fracture of right femur, initial encounter for closed fracture (principal); I13.0 Hypertensive heart and chronic kidney disease with heart failure and stage 1 through stage 4 chronic kidney disease, or unspecified chronic kidney disease; I50.32 Chronic diastolic (congestive) heart failure; D62 Acute posthemorrhagic anemia; W19.XXXA Unspecified fall, initial encounter; Z20.822 Contact with and (suspected) exposure to COVID-19; N18.30 Chronic kidney disease, stage 3 unspecified; I25.118 Atherosclerotic heart disease of native coronary artery with other forms of angina pectoris; J44.9 Chronic obstructive pulmonary disease, unspecified; F03.90 Unspecified dementia, unspecified severity, without behavioral disturbance, psychotic disturbance, mood disturbance, and anxiety; D50.9 Iron deficiency anemia, unspecified; E53.8 Deficiency of other specified B group vitamins; K74.60 Unspecified cirrhosis of liver; E78.5 Hyperlipidemia, unspecified; Z79.82 Long term (current) use of aspirin; Z79.899 Other long term (current) drug therapy; Z88.0 Allergy status to penicillin
CPT/HCPCS: 36415; 36430; 70450; 71045; 73502; 73700; 76705; 80048; 80053; 80074; 82274; 82550; 82607; 82728; 82746; 82948; 83540; 83550; 83735; 84443; 84466; 85014; 85018; 85025; 85027; 85610; 86850; 86900; 86901; 86920; 87426; 93005; 96361; 96365; 96375; 96376; 97110; 97161; 97165; 97530; 97535; 99285; A9270; C1713; C9113; C9803; G0378; J0690; J1644; J2270; J2405; J2704; J3420; J7050; J7120; P9016

== ENCOUNTER 2021-01-24 13:00 | Emergency (ER) | payer MEDICARE, MEDICAID, SELFPAY ==
--- NOTE | ~2021-01-24 | CT_ITS ---
EXAMINATION: CT lumbar spine wo con DATE: 01/24/2021 15:15 INDICATION: Low back pain TECHNIQUE: Computed tomography (CT) of the lumbar spine was performed without intravenous contrast. T he dose-length product was 162.50 mGy-cm. Automated exposure control and iterative reconstruction santiago hnique were employed. COMPARISON: No prior studies for comparison. FINDINGS: There is ectasia of the abdominal aorta measuring up to 2.5 cm. There is a wedge compressio n fracture of L2 which is likely chronic. There is approximately 25% loss of vertebral body height an teriorly. There is degenerative disc disease at all lumbar levels. There is endplate sclerosis at L5- S1. There is dextroscoliosis. No acute fracture or traumatic malalignment is identified. There is lef t renal atrophy. IMPRESSION: 1. Moderate lumbar spondylosis. 2: Anterior wedge compression deformity of L2, likely chronic. Reviewed, dictated and finalized at location A. WELL SHOOTER
--- NOTE | ~2021-01-24 | CT_ITS ---
EXAMINATION: CT brain wo con DATE: 01/24/2021 17:23 INDICATION: Head injury. TECHNIQUE: Computed tomography (CT) of the head was performed without intravenous contrast. The dose- length product was 605.33 mGy-cm. Automated exposure control and iterative reconstruction technique w ere employed. COMPARISON: CT dated 01/24/2021 FINDINGS: Generalized atrophy. Chronic left lacunar infarction. There is intracranial atherosclerosis . There are scattered moderate periventricular and subcortical white matter changes, most likely rela lisandro to small vessel ischemic disease (microangiopathy). Paranasal sinuses are unremarkable. There is right frontal scalp swelling with soft tissue gas, consistent with laceration. Orbits are symmetric. No depressed skull fractures. IMPRESSION: 1. No acute intracranial abnormality. 2.: Chronic left lacunar infarction. 3: Chronic age-related findings. Reviewed, dictated and finalized at location A. CONSULTANT
--- NOTE | ~2021-01-24 | XR_ITS ---
XR chest 2V 01/24/2021 14:21 Indication: Cough and pneumonia Procedure: AP view of the chest Comparison: Comparison to multiple prior studies sequentially, with oldest reviewed study dated 07/27. Findings: Status post median sternotomy for CABG. Heart size normal. No focal air space disease, pulm onary edema, pleural effusion or suspected pneumothorax. No acute osseous abnormality. The lungs are hyperinflated which is consistent with, but not diagnostic of chronic obstructive pulmonary disease. Impression: 1: No acute cardiopulmonary disease. Reviewed, dictated and finalized at location A. R RELATIONS CONSULTANT Impression: 1: No acute cardiopulmonary disease.
--- NOTE | ~2021-01-24 | CT_ITS ---
EXAMINATION: CT brain wo con DATE: 01/24/2021 13:21 INDICATION: Head injury. TECHNIQUE: Computed tomography (CT) of the head was performed without intravenous contrast. The mA wa s adjusted according to patient size. Iterative reconstruction technique was employed. The dose-lengt h product was 605.33 mGy-cm. COMPARISON: Head CT 12/27/2020 FINDINGS: There are old infarcts in the cerebellum bilaterally. There are scattered areas of low atte nuation in the cerebral white matter. There is no intracranial hemorrhage, acute infarction, or abnor mal intracranial mass lesion. The ventricles are normal in size. There are likely changes of ocular l ens replacement surgeries. There is mild mucosal thickening in the ethmoid sinuses. There is a small left mastoid effusion. IMPRESSION: 1. Old infarcts in the cerebellum. 2. Stable extensive nonspecific cerebral white matter disease, which likely represents chronic small vessel ischemic disease. Reviewed, dictated and finalized at location A. SEAFOOD ASSOCIATE IMPRESSION: 1. Old infarcts in the cerebellum. 2. Stable extensive nonspecific cerebral white matter disease, which likely rep resents chronic small vessel ischemic disease.
--- NOTE | ~2021-01-24 | XR_ITS ---
XR hip BI 2V w AP pelvis 01/24/2021 14:21 Indication: Right hip pain after recent hip replacement Procedure: AP pelvis and 3 views of the right femur/hip Comparison: 12/27/2020 Findings: There is a dynamic compression screw transfixing a right femoral intertrochanteric/subtroch anteric fracture. There is a single distal interlocking screw. Fracture fragments in near-anatomic al ignment. There is mild degenerative change of the right hip. There are vascular calcifications. Impression: 1: Right femoral intertrochanteric/subtrochanteric fracture transfixed by dynamic compression screw a nd intramedullary shelly. Fracture in near-anatomic alignment. Reviewed, dictated and finalized at location A. ATTENDANT Impression: 1: Right femoral intertrochanteric/subtrochanteric fracture transfixed by dynam ic compression screw and intramedullary shelly. Fracture in near-anatomic alignmen t.
--- NOTE | ~2021-01-24 | CT_ITS ---
EXAMINATION: CT cervical spine wo con DATE: 01/24/2021 13:21 INDICATION: Head injury. TECHNIQUE: Computed tomography (CT) of the cervical spine was performed without intravenous contrast. Automated exposure control and iterative reconstruction technique were employed. The dose-length pro duct was 93.08 mGy-cm. COMPARISON: CT cervical spine 12/12/20 FINDINGS: The visualized portions of the lung apices demonstrate emphysema. There are nodules and rashawn undglass opacities in left upper lobe. Bone alignment is normal. Vertebral body heights are normal. T here is mildly decreased disc height at C4-C5, moderately decreased disc height at C5-C6, and severel y decreased disc height at C6-C7. The following disc levels are specifically discussed: C2-C3: There is no uncovertebral joint osteoarthritis. There is mild right and severe left facet join t osteoarthritis. There is mild left neural foraminal stenosis. There is no central canal stenosis. C3-C4: There is mild right and moderate left uncovertebral joint osteoarthritis. There is mild right and severe left facet joint osteoarthritis. There is mild right and moderate left neural foraminal st enosis. There is mild central canal stenosis. C4-C5: There is mild right and severe left uncovertebral joint osteoarthritis. There is moderate righ t and severe left facet joint osteoarthritis. There is mild right and moderate left neural foraminal stenosis. There is mild central canal stenosis. C5-C6: There is severe right and mild left uncovertebral joint osteoarthritis. There is mild right an d severe left facet joint osteoarthritis. There is moderate right and mild left neural foraminal sten osis. There is mild central canal stenosis. C6-C7: There is severe right and moderate left uncovertebral joint osteoarthritis. There is severe bi lateral facet joint osteoarthritis. There is mild bilateral neural foraminal stenosis. There is mild central canal stenosis. C7-T1: There is no uncovertebral joint osteoarthritis. There is mild right and severe left facet join t osteoarthritis. There is mild left neural foraminal stenosis. There is no central canal stenosis. IMPRESSION: 1. No fracture. 2. Severe cervical spondylosis. 3. Nodules and groundglass opacities in left lung upper lobe, consistent with pneumonia. Reviewed, dictated and finalized at location A. INSTRUCTOR IMPRESSION: 1. No fracture. 2. Severe cervical spondylosis. 3. Nodules and groundglass opacities in left lung upper lobe, consistent with p neumonia.
--- NOTE | ~2021-01-24 | CT_ITS ---
EXAMINATION: CT facial & cervical spine wo DATE: 01/24/2021 17:23 INDICATION: Status post fall. Head injury. TECHNIQUE: Computed tomography (CT) of the maxillofacial region and cervical spine was performed with out intravenous contrast. The dose-length product was 112.38 mGy-cm. Automated exposure control and i terative reconstruction technique were employed. COMPARISON: None FINDINGS: MAXILLOFACIAL CT: There is right frontal scalp swelling with laceration. There is hyperostosis frontalis interna. There is carotid atherosclerosis. The orbits, nasal bones, maxilla and mandible are within normal limits. There are symmetric mild degenerative changes at the temporomandibular joints. Paranasal sinuses are pneumatized. No acute fracture or traumatic malalignment. CERVICAL SPINE CT: Vertebral body heights are maintained. There is degenerative disc disease at C5-6 and C6-7. There is emphysema. There are multiple nodules in the upper lobes measuring 6 mm or less. There is emphysema. There is apical pleural thickening/scarring. There is intracranial atherosclerosis. No significant pa raspinal soft tissue abnormality. There is a 1 cm low-density lesion in the right thyroid lobe, most likely benign. There is multilevel uncinate and facet degenerative change, left greater than right. O dontoid process within normal limits. No significant prevertebral soft tissue swelling. Craniovertebr al junction is normal. IMPRESSION: 1. No acute abnormality of the facial bones or cervical spine. 2: Upper lobe nodules measuring 6 mm or less, likely benign. Follow-up CT chest in 6 months recommend ed. 3: Emphysema. Reviewed, dictated and finalized at location A. ER FRAME BACK TENDER IMPRESSION: 1. No acute abnormality of the facial bones or cervical spine. 2: Upper lobe nodules measuring 6 mm or less, likely benign. Follow-up CT chest in 6 months recommended. 3: Emphysema.
[2021-01-24 13:03] VITALS: BP 123/74; PULSE 73; RESP 18; TEMP 35.9; O2SAT 99
--- NOTE | 2021-01-24 14:12 | ECG_ITS ---
Measurements Intervals [place] Rate: 75 P: 69 [place]: 155 QRS: -45 QRSD: 108 T: -42 QT: 420 QTc: 469 Interpretive Statements SINUS RHYTHM LOW QRS VOLTAGE IN LIMB LEADS CONSIDER INFERIOR INFARCT, AGE INDETERMINATE BORDERLINE T WAVE ABNORMALITY- ANTEROLATERAL LEADS BASELINE ARTIFACT- II, III, AVR, AVF, V3-V6 ABNORMAL ECG Electronically Signed On 01-24-2021 17:10:17 COMB MACHINE OPERATOR by Trae Stewart D.O.
--- NOTE | 2021-01-24 14:33 | ED.HEATRA ---
HPI - Head Injury General Chief complaint: Head Injury <ALYSON Canela Last Filed: 01/24/21 18:27> Stated complaint: Fall, Head Injury <ALYSON Canela Last Filed: 01/24/21 18:27> Time Seen by Provider: 01/24/21 13:33 <ALYSON Canela Last Filed: 01/24/21 18:27> Source: patient <ALYSON Canela Last Filed: 01/24/21 18:27> Mode of arrival: EMS <ALYSON Canela Last Filed: 01/24/21 18:27> Limitations: dementia <ALYSON Canela Last Filed: 01/24/21 18:27> History of Present Illness HPI Narrative: This is an 80-year-old female that presents to the emergency department after an unwitnessed fall at [facility]. Patient reports she slipped and fell and hit her head on the wall. Denies loss of consciousness. Reports low back pain after the fall. Reports she recently had a right hip surgery. Denies vision changes, vomiting, numbness or weakness <ALYSON Canela Last Filed: 01/24/21 18:27> Related Data Home medications: Home Medications Medication Instructions Recorded Confirmed aspirin 81 mg tablet,delayed 81 mg PO DAILY 01/08/19 12/27/20 release acetaminophen 500 mg PO DAILY PRN 12/27/20 12/27/20 atorvastatin 40 mg PO HS 12/27/20 12/27/20 hydrocodone-acetaminophen 1 tablet PO Q6H PRN 12/27/20 12/27/20 mirtazapine 7.5 mg PO HS 12/27/20 12/27/20 potassium chloride 10 meq PO DAILY 12/27/20 12/27/20 <ALYSON Canela Last Filed: 01/24/21 18:27> Allergies/Adverse reactions: Allergies Allergy/AdvReac Type Severity Reaction Status Date / Time Penicillins Allergy Unknown Unknown Verified 12/27/20 22:18 <ALYSON Canela Last Filed: 01/24/21 18:27> Review of Systems Review of Systems: CONSTITUTIONAL: Denies fever EYES: Denies visual changes CARDIOVASCULAR: Denies chest pain RESPIRATORY: Denies dyspnea. GASTROINTESTINAL: Denies vomiting GENITOURINARY: Denies dysuria MUSCULOSKELETAL: Reports back pain, joint pain, and myalgia. NEUROLOGIC: Denies numbness, or weakness. <Maria Esther Tapia PA-C - Last Filed: 01/24/21 18:27> All systems reviewed & are unremarkable except as noted in HPI and below <Maria Esther Tapia PA-C - Last Filed: 01/24/21 18:27> [facility] Past Medical History Medical History: Medical History (Updated 01/24/21 @ 18:44 by Maria Esther Tapia PA-C) Acute bilateral low back pain without sciatica CAD (coronary artery disease) Chronic obstructive pulmonary disease CKD (chronic kidney disease) stage 3, GFR 30-59 ml/min COPD (chronic obstructive pulmonary disease) Dementia Depression Dyslipidemia Dysthymia HLD (hyperlipidemia) HTN (hypertension) Osteomyelitis of left foot Post menopausal problems <Maria Esther Tapia PA-C - Last Filed: 01/24/21 18:27> Surgical History Surgical History: Surgical History History of PTCA History of stent insertion of renal artery left renal artery stent 2006 Hx of CABG 2012 <Maria Esther Tapia PA-C - Last Filed: 01/24/21 18:27> Family History Family History: Family History Grandparent Diabetes mellitus Acute myocardial infarction Heart disease Father Heart disease Mother Coronary artery disease <Maria Esther Tapia PA-C - Last Filed: 01/24/21 18:27> Social History Social History: Social History Social History: She lived at home alone until her hospitalization July 2020 at which time she was admitted to [facility]. Primary care physician: Dr. Malcom Judd Code status: Full code Smoking packs per day: 2 Smoking cigarettes per day: 40.0 Years smoked: 35 Smoking pack-years: 70.00 Smoking status: Never smoker Second hand tobacco smoke exposure: No Alcohol intake: never Drinks
[2021-01-24 15:09] LABS: Basophils Percent Auto 0.9 % (0.2-1.2); Eosinophils Absolute Auto 0.2 K/mm3 (0-0.3); Eosinophils Percent Auto 4.7 % (0-4.4); Hematocrit 37.2 % (37.0-47.0); Hemoglobin 11.7 g/dL (12.0-15.0); Immature Granulocyte Absolute 0.05 K/mm3 (0.00-0.031); Immature Granulocyte Percent A 1.1 % (0-0.5); Lymphocytes Absolute Auto 0.78 K/mm3 (0.9-3.2); Lymphocytes Percent Auto 17.6 % (18.3-44.2); Mean Corpuscular HGB Conc 31.5 g/dl (32-36); Mean Corpuscular Hemoglobin 31.6 pg (26-34); Mean Corpuscular Volume 100.5 fl (80-100); Mean Platelet Volume 9.1 fl (7.4-10.4); Monocytes Absolute Auto 0.3 K/mm3 (0.1-0.6); Monocytes Percent Auto 6.1 % (2.6-8.5); Neutrophils Absolute Auto 3.1 K/mm3 (1.3-6.7); Neutrophils Percent Auto 69.6 % (45.5-73.1); Platelet Count Result 224 k/mm3 (150-375); Red Cell Distribution Width 15.9 % (11.5-14.5); White Blood Count 4.4 K/mm3 (4.5-10.0)
[2021-01-24 15:18] LABS: Anion Gap 2 mmol/L (8-16); Blood Urea Nitrogen 6 mg/dL (7-17); Calcium 8.5 mg/dL (8.4-10.2); Carbon Dioxide 28 mmol/L (22-30); Chloride 107 mmol/L (98-107); Estimated CRCL calculation 43 ml/min; Estimated Glomerular Filt Rate > 60; Glucose 92 mg/dL (65-110); Potassium 3.6 mmol/L (3.4-5.0); Sodium 137 mmol/L (137-145)
[2021-01-24 15:18] LABS: Add Urine Microscopic? YES; Appearance Urine Clear (Clear); Bacteria Urine Trace /hpf; Bilirubin Urine Negative (Negative); Blood Urine Negative (Negative); Color Urine Yellow (Yellow); Glucose Urine UA Negative (Negative); Ketones Urine Negative (Negative); Leukocyte Esterase Ur 1+ LEU/UL (Negative); Mucus Urine Rare /lpf; Nitrate Urine Negative (Negative); Protein Urine Negative (Negative); Specific Grav Ur 1.009 (1.001-1.035); Squamous Epithelial Cell Urine Many /hpf (Few); Urobilinogen Urine Negative mg/dL (<2.0)
[2021-01-24 16:50] VITALS: BP 164/91; PULSE 75; RESP 14; O2SAT 94
[2021-01-24 18:33] VITALS: BP 139/76; PULSE 69; RESP 14; O2SAT 100
[2021-01-24 19:23] VITALS: BP 143/100; PULSE 71; RESP 18; O2SAT 97
== END 2021-01-24 20:43 ==
PROVIDERS: Physician Assistant; Emergency Provider Emergency Medicine; PCP Emergency Medicine
DX: S01.81XA Laceration without foreign body of other part of head, initial encounter (principal); J18.9 Pneumonia, unspecified organism; R91.1 Solitary pulmonary nodule; I25.10 Atherosclerotic heart disease of native coronary artery without angina pectoris; I12.9 Hypertensive chronic kidney disease with stage 1 through stage 4 chronic kidney disease, or unspecified chronic kidney disease; N18.30 Chronic kidney disease, stage 3 unspecified; F03.90 Unspecified dementia, unspecified severity, without behavioral disturbance, psychotic disturbance, mood disturbance, and anxiety; F17.210 Nicotine dependence, cigarettes, uncomplicated; Z79.82 Long term (current) use of aspirin; W01.198A Fall on same level from slipping, tripping and stumbling with subsequent striking against other object, initial encounter; W06.XXXA Fall from bed, initial encounter
CPT/HCPCS: 12013; 36415; 70450; 70486; 71046; 72125; 72131; 73521; 80048; 81001; 85025; 93005; 99284